=== PATIENT | male | born 1965 | race Caucasian/White ===

== ENCOUNTER 2020-11-05 10:33 | Outpatient (REF) | payer OTHER, SELFPAY ==
[2020-11-05 12:52] LABS: MANUAL DIFF FLAG NO
[2020-11-05 13:12] LABS: Basophils Percent Auto 0.6 % (0-2); Eosinophils Absolute Auto 0.2 X10*3/uL (0.0-0.4); Eosinophils Percent Auto 2.6 % (0-4); Hematocrit 46.8 % (42-52); Hemoglobin 16.3 g/dl (14.0-18.0); Imm Gran Abs Auto 0.04 X10*3/uL (0.00-0.03); Imm Gran Pct Auto 0.6 % (0.0-0.4); Lymphocytes Absolute Auto 1.6 X10*3/uL (1.2-4.9); Lymphocytes Percent Auto 24.3 % (20-40); Mean Corpuscular HGB Conc 34.8 g/dl (31.0-36.0); Mean Corpuscular Hemoglobin 29.2 pg (27.0-33.0); Mean Corpuscular Volume 83.9 fL (80-98); Mean Platelet Volume 10.4 fL (9.4-12.4); Monocytes Absolute Auto 0.6 X10*3/uL (0.1-1.2); Monocytes Percent Auto 8.7 % (2-11); Neutrophils Absolute Auto 4.1 X10*3/uL (2.0-8.3); Neutrophils Percent Auto 63.2 % (45-73); Platelet Count 217 X10*3/uL (160-400); Red Blood Count 5.58 X10*6/uL (4.60-5.80); Red Cell Distribution Width 13.2 % (11.0-16.0); White Blood Count 6.5 X10*3/uL (4.8-10.8)
[2020-11-05 14:11] LABS: Estimated Average Glucose 217 mg/dL; Hemoglobin A1c % 9.2 %
[2020-11-05 14:41] LABS: Prostate Specific Antigen 2.33 ng/mL (<0.05-4.0)
[2020-11-05 14:44] LABS: Alanine Aminotransferase 43 U/L (0-40); Albumin Level 4.5 g/dL (3.5-5.0); Alkaline Phosphatase 76 U/L (39-117); Anion Gap 15 (12-20); Aspartate Amino Transferase 21 U/L (5-37); Bilirubin Total 2.1 mg/dL (0.0-1.0); Blood Urea Nitrogen 14 mg/dL (9-16); Calcium 9.3 mg/dL (8.4-10.2); Carbon Dioxide 27 mmol/L (22-29); Chloride 105 mmol/L (96-108); Cholesterol 158 mg/dL; Estimated Glomerular Filt Rate > 60; Glucose Fasting 229 mg/dL (60-99); HDL Cholesterol 32 mg/dL; LDL Cholesterol Calculated 98 mg/dl; Sodium 143 mmol/L (135-145); Total Protein 7.3 g/dL (6.5-8.0); Triglycerides 140 mg/dL
== END 2020-11-05 10:34 | disposition home or self-care (01) ==
LOC: HO.MANLDS 10:33
PROVIDERS: PCP Internal Medicine; Visit Provider Physician Assistant
DX: E11.9 Type 2 diabetes mellitus without complications (principal); E78.00 Pure hypercholesterolemia, unspecified; N40.0 Benign prostatic hyperplasia without lower urinary tract symptoms; Z12.5 Encounter for screening for malignant neoplasm of prostate
CPT/HCPCS: 36415; 80053; 80061; 83036; 84153; 85025

== ENCOUNTER 2021-02-04 10:17 | Outpatient (REF) | payer OTHER, SELFPAY ==
[2021-02-04 12:59] LABS: Estimated Average Glucose 206 mg/dL; Hemoglobin A1c % 8.8 %
[2021-02-04 14:10] LABS: Cholesterol 160 mg/dL; HDL Cholesterol 30 mg/dL; LDL Cholesterol Calculated 103 mg/dl; Triglycerides 136 mg/dL
[2021-02-04 14:12] LABS: Creatinine Urine 101.51 mg/dL; Microalbum/Creatinine Ratio Ur 15.7 ug/mg cr
== END 2021-02-04 10:18 | disposition home or self-care (01) ==
LOC: HO.MANLR 10:17
PROVIDERS: PCP Internal Medicine; Visit Provider Physician Assistant
DX: E11.9 Type 2 diabetes mellitus without complications (principal)
CPT/HCPCS: 36415; 80061; 82043; 83036

== ENCOUNTER 2021-05-12 10:47 | Outpatient (REF) | payer OTHER, SELFPAY ==
[2021-05-12 14:01] LABS: Estimated Average Glucose 214 mg/dL; Hemoglobin A1c % 9.1 %
== END 2021-05-12 10:48 | disposition home or self-care (01) ==
LOC: HO.MANLDS 10:47
PROVIDERS: PCP Physician Assistant; Visit Provider Physician Assistant
DX: E11.9 Type 2 diabetes mellitus without complications (principal)
CPT/HCPCS: 36415; 83036

== ENCOUNTER 2021-10-29 10:21 | Outpatient (REF) | payer OTHER, SELFPAY ==
[2021-10-29 12:51] LABS: Cholesterol 156 mg/dL; HDL Cholesterol 30 mg/dL; LDL Cholesterol Calculated 89 mg/dl; Triglycerides 187 mg/dL
== END 2021-10-29 10:22 | disposition home or self-care (01) ==
LOC: HO.MANLDS 10:21
PROVIDERS: PCP Physician Assistant; Visit Provider Physician Assistant
DX: E78.2 Mixed hyperlipidemia (principal)
CPT/HCPCS: 36415; 80061

== ENCOUNTER 2022-05-19 11:08 | Outpatient (REF) | payer OTHER, SELFPAY ==
[2022-05-19 13:48] LABS: MANUAL DIFF FLAG NO
[2022-05-19 14:04] LABS: Basophils Percent Auto 0.4 % (0-2); Eosinophils Absolute Auto 0.2 X10*3/uL (0.0-0.4); Eosinophils Percent Auto 2.5 % (0-4); Hematocrit 47.2 % (42.0-52.0); Hemoglobin 16.3 g/dl (14.0-18.0); Imm Gran Abs Auto 0.02 X10*3/uL (0.00-0.03); Imm Gran Pct Auto 0.3 % (0.0-0.4); Lymphocytes Absolute Auto 1.3 X10*3/uL (1.2-4.9); Lymphocytes Percent Auto 18.9 % (20-40); Mean Corpuscular HGB Conc 34.5 g/dl (31.0-36.0); Mean Corpuscular Hemoglobin 28.8 pg (27.0-33.0); Mean Corpuscular Volume 83.4 fL (80.0-98.0); Mean Platelet Volume 10.4 fL (9.4-12.4); Monocytes Absolute Auto 0.6 X10*3/uL (0.1-1.2); Monocytes Percent Auto 8.9 % (2-11); Neutrophils Absolute Auto 4.7 x10*3/uL (2.0-8.3); Platelet Count 226 X10*3/uL (160-400); Red Blood Count 5.66 X10*6/uL (4.60-5.80); Red Cell Distribution Width 13.2 % (11.0-16.0); White Blood Count 6.8 X10*3/uL (4.8-10.8)
[2022-05-19 14:19] LABS: Estimated Average Glucose 229 mg/dL; Hemoglobin A1c % 9.6 %
[2022-05-19 14:29] LABS: Alanine Aminotransferase 28 U/L (0-40); Albumin Level 4.5 g/dL (3.5-5.0); Alkaline Phosphatase 79 U/L (39-117); Anion Gap 16 (12-20); Aspartate Amino Transferase 18 U/L (5-37); Bilirubin Total 2.5 mg/dL (0.0-1.0); Blood Urea Nitrogen 11 mg/dL (9-16); Carbon Dioxide 28 mmol/L (22-29); Chloride 100 mmol/L (96-108); Cholesterol 145 mg/dL; Estimated Glomerular Filt Rate > 60; Glucose Random 218 mg/dL (60-115); HDL Cholesterol 34 mg/dL; LDL Cholesterol Calculated 86 mg/dl; Potassium 4.3 mmol/L (3.3-5.1); Sodium 140 mmol/L (135-145); Total Protein 7.2 g/dL (6.5-8.0); Triglycerides 128 mg/dL
[2022-05-19 14:49] LABS: Prostate Specific Antigen 1.76 ng/mL (<0.05-4.0)
== END 2022-05-19 11:09 | disposition home or self-care (01) ==
LOC: HO.MANLDS 11:08
PROVIDERS: Visit Provider Physician Assistant
DX: E78.2 Mixed hyperlipidemia (principal); Z12.5 Encounter for screening for malignant neoplasm of prostate
CPT/HCPCS: 36415; 80053; 80061; 83036; 84153; 85025

== ENCOUNTER 2022-09-09 11:32 | Outpatient (REF) | payer OTHER, SELFPAY ==
[2022-09-09 14:50] LABS: Alanine Aminotransferase 35 U/L (0-40); Albumin Level 4.3 g/dL (3.5-5.0); Alkaline Phosphatase 81 U/L (39-117); Anion Gap 11 (12-20); Aspartate Amino Transferase 18 U/L (5-37); Bilirubin Total 1.8 mg/dL (0.0-1.0); Blood Urea Nitrogen 14 mg/dL (9-16); Calcium 9.2 mg/dL (8.4-10.2); Carbon Dioxide 28 mmol/L (22-29); Chloride 104 mmol/L (96-108); Cholesterol 166 mg/dL; Estimated Glomerular Filt Rate > 60; Glucose Random 237 mg/dL (60-115); HDL Cholesterol 27 mg/dL; LDL Cholesterol Calculated 114 mg/dl; Potassium 3.9 mmol/L (3.3-5.1); Sodium 139 mmol/L (135-145); Total Protein 6.9 g/dL (6.5-8.0); Triglycerides 126 mg/dL
== END 2022-09-09 11:33 | disposition home or self-care (01) ==
LOC: HO.MANLDS 11:32
PROVIDERS: Visit Provider Physician Assistant
DX: E78.2 Mixed hyperlipidemia (principal)
CPT/HCPCS: 36415; 80053; 80061

== ENCOUNTER 2023-02-10 | Outpatient (REF) | payer OTHER, SELFPAY ==
[2023-02-10 13:56] LABS: MANUAL DIFF FLAG NO
[2023-02-10 14:01] LABS: Appearance Urine Clear; Color Urine Yellow; Glucose Urine UA >=1000 mg/dL (Negative); Leukocyte Esterase Urine Negative (Negative); Nitrite Urine Negative (Negative); PH 6.5 (5.0-9.0); Specific Gravity - Urine 1.025 (1.005-1.025); UMIC TRIGGER UACC YES; Urine Blood Negative (Negative); Urine Ketones Trace mg/dL (Negative); Urine Protein Negative (Neg-Trace)
[2023-02-10 14:07] LABS: Basophils Percent Auto 0.6 % (0-2); Eosinophils Absolute Auto 0.2 X10*3/uL (0.0-0.4); Eosinophils Percent Auto 2.6 % (0-4); Hematocrit 45.7 % (42.0-52.0); Hemoglobin 16.1 g/dl (14.0-18.0); Imm Gran Abs Auto 0.02 X10*3/uL (0.00-0.03); Imm Gran Pct Auto 0.3 % (0.0-0.4); Lymphocytes Absolute Auto 1.5 X10*3/uL (1.2-4.9); Lymphocytes Percent Auto 23.7 % (20-40); Mean Corpuscular HGB Conc 35.2 g/dl (31.0-36.0); Mean Corpuscular Hemoglobin 29.8 pg (27.0-33.0); Mean Corpuscular Volume 84.5 fL (80.0-98.0); Mean Platelet Volume 10.3 fL (9.4-12.4); Monocytes Absolute Auto 0.6 X10*3/uL (0.1-1.2); Monocytes Percent Auto 9.9 % (2-11); Neutrophils Absolute Auto 4.1 x10*3/uL (2.0-8.3); Neutrophils Percent Auto 62.9 % (45-73); Platelet Count 234 X10*3/uL (160-400); Red Blood Count 5.41 X10*6/uL (4.60-5.80); Red Cell Distribution Width 13.2 % (11.0-16.0); White Blood Count 6.5 X10*3/uL (4.8-10.8)
[2023-02-10 14:09] LABS: Bacteria Urine None Seen (None Seen); Hyaline Casts Urine 0-2 /LPF (0-2); RBC Urine 0-2 /HPF (0-2); Squamous Epithelial Cell Urine 0-2 /HPF (0-2); WBC Urine 0-5 /HPF (0-5)
[2023-02-10 14:32] LABS: Iron 96 mcg/dL (45-160); Percent Iron Saturation 29 % (15-50); Total Iron Binding Capacity 330 mcg/dL (228-428); Unsaturated Iron Binding 234 ug/dL
[2023-02-10 14:40] LABS: Ferritin 322 ng/mL (20-250); Prostate Specific Antigen 2.04 ng/mL (<0.05-4.0)
== END 2023-02-10 00:01 | disposition home or self-care (01) ==
LOC: HO.MANLDS
PROVIDERS: Visit Provider Physician Assistant
DX: Z12.5 Encounter for screening for malignant neoplasm of prostate (principal); N40.0 Benign prostatic hyperplasia without lower urinary tract symptoms; R31.0 Gross hematuria
CPT/HCPCS: 36415; 81001; 81003; 82728; 83540; 84153; 85025

== ENCOUNTER 2023-05-12 11:57 | Outpatient (REF) | payer OTHER, SELFPAY ==
[2023-05-13 05:07] LABS: Syphilis Screen Nonreactive (Nonreactive)
[2023-05-13 05:16] LABS: HBS Num1 0.11 mIU/mL (0-7.99); HBc Num1 0.11 S/CO (0.00-0.79); HIV AB/AG Nonreactive (Nonreactive); HIV Num 1 0.08 S/CO (0.00-0.99); Hepatitis A Antibody IgM 0.17 Index (0-0.79); Hepatitis B Core Antibody Nonreactive (Nonreactive); Hepatitis B Surface Antigen Negative (Negative); ~HepC Num1 0.05 S/CO (0.00-0.79); ~Hepatitis A Antibody IgM Nonreactive (Nonreactive); ~Hepatitis B Surface Antibody NONREACTIVE (Nonreactive); ~Hepatitis C Antibody Nonreactive (Nonreactive)
== END 2023-05-12 11:58 | disposition home or self-care (01) ==
LOC: HO.MANLDS 11:57
PROVIDERS: Visit Provider Physician Assistant
DX: Z11.4 Encounter for screening for human immunodeficiency virus [HIV] (principal); R36.1 Hematospermia
CPT/HCPCS: 36415; 86704; 86706; 86709; 86780; 86803; 87340; 87389

== ENCOUNTER 2023-05-12 14:00 | Outpatient (REF) | payer OTHER, SELFPAY ==
[2023-05-13 05:00] LABS: CT PCR NOT DETECTED (Not Detect.); NG PCR NOT DETECTED (Not Detect.)
== END 2023-05-12 14:01 | disposition home or self-care (01) ==
LOC: HO.MANLNP 14:00
PROVIDERS: Visit Provider Physician Assistant
DX: R36.1 Hematospermia (principal); Z20.2 Contact with and (suspected) exposure to infections with a predominantly sexual mode of transmission
CPT/HCPCS: 0353U

== ENCOUNTER 2024-10-27 10:43 | Outpatient (REF) | payer OTHER, SELFPAY ==
--- OUTSIDE RECORDS SUMMARY | 2024-10-27 12:14 | XMS_ITS | Encounter Summary ---
Author Organization [facility] Address [phone] [place] [address] Care Team Providers Care Surgeon Assistant Name Role Phone NeishaGigi hughes Primary Care Provider [phone] Encounter Details Date Type Department Care Team (Late st Contact Info) Description 10/05/2024 Orders Only [facility] [address] [place] [address] [facility] [address] [place] [address] Tuan Cortez DO [address] [place] [address] Social History Tobacco Use Types Packs/Day Years Used Date Smoking Tobacco: Never Passive Smoke Exposure: Never Smokeless Tobacco: Never Alcohol Use Standard Drinks/Week Comments Never 0 (1 standard drink = 0.6 oz pur e alcohol) Education Answer Date Recorded Are you interested in more education? Not on marce e 12/25/2022 Are you concerned about learning? Not on file 12/25/2022 No 12/25/2022 No 12/25/2022 Digital Access Answer Date Recorded No 01/25/2023 No 01/25/2023 Reliable internet access at home? Not on file 01/25/2023 Device with a working camera? Not on file Intimate Partner Violence Answer Date R ecorded Are you denied basic needs s uch as food, clothing, or medical care? No 06/20/2024 In the past 12 months have y ou been in a relationship with a person who hurts, threatens, or tries to control you? No 06/20/2024 Are you denied basic needs s uch as food, clothing, or medical care? No 06/20/2024 In the past 12 months have y ou been in a relationship with a person who hurts, threatens, or tries to control you? No 06/20/2024 Sex and Gender Information Value Date Recorded Sex Assigned at Male 12/19/2021 9:31 AM EDT Gender Identity Male 12/19/2021 9:31 AM EDT Sexual Orientation Don't know 06/20/2024 6: 18 PM EDT documented as of this encounter Plan of Treatment Upcoming Encounters Date Type Department Care Team (Late st Contact Info) Description 12/15/2024 11:00 AM EDT Office Visit [facility] [address] [place] [address] [place] [address] Stacy Hendrickson MD 22 [facility], 1st [place] [address] 05/29/2025 12:00 PM EDT Office Visit [facility] [address] [place] [address] [facility] [address] [place] [address] Tuan Cortez DO [address] [place] [phone] documented as of this encounter Procedures Procedure Name Priority Date/Time Associated Diagnosis Comments OUTSIDE MONITOR Routine 10/05/2024 2:31 PM EST documented in this encounter Results * Outside Monitor Report Only (10/05/2024 2:31 PM EST) Tuan Cortez DO [facility] ORDERABLES documented in this encounter Visit Diagnoses Not on filedocumented in this encounter Care Teams Surgeon Assistant Relationship Specialty Start Date End Date Gigi Mcwilliams DO PCP - General Internal Medicine 09/28/14 documented as of this encounter Additional Source Comments The information contained in this document represents components of the legal health record. It is not the complete legal health record.[facility]
--- OUTSIDE RECORDS SUMMARY | 2024-10-27 12:14 | XMS_ITS | Encounter Summary ---
Author Organization [facility] Address [phone] [place] [address] Care Team Providers Care Airport Utility Worker Name Role Phone Gigi Mcwilliams DO Primary Care Provider [phone] Encounter Details Date Type Department Care Team (Late st Contact Info) Description 08/17/2017 Ancillary Orders Virtual Department [address] [place] [address] Monse Don PA-C [address] [place] [address] Chest pain on exertion Social History Tobacco Use Types Packs/Day Years Used Date Smoking Tobacco: Never Alcohol Use Standard Drinks/Week Comments Not Asked 0 (1 standard drink = 0.6 oz pur e alcohol) Sex and Gender Information Value Date Recorded Sex Assigned at Male 12/19/2021 9:31 AM EDT Gender Identity Male 12/19/2021 9:31 AM EDT Sexual Orientation Don't know 06/20/2024 6: 18 PM EDT documented as of this encounter Plan of Treatment Upcoming Encounters Date Type Department Care Team (Late st Contact Info) Description 12/15/2024 11:00 AM EDT Office Visit [facility] [address] [place] [address] Stacy Hendrickson MD 22 [facility], 1st [place] [address] 05/29/2025 12:00 PM EDT Office Visit [facility] [address] [place] [address] Tuan Cortez DO [address] [place] [address] documented as of this encounter Visit Diagnoses Diagnosis Chest pain on exertion Unspecified chest pain documented in this encounter Additional Health Concerns Infection Onset Date Last Indicated Resolved Time MRSA Comment:Import to add expiration date of 11/15/2021 per Infection Control as part of historical infection status reconciliation 04/02/2008 04/02/2008 11/16/19 1:35 AM EDT CoV-Risk Comment:Per Ambulatory Triage Form 04/23/2022 04/23/202204/24 7:52 AM EDT COVID-19 04/23/2022 04/23/2022 05/14/2022 1:21 AM EDT documented as of this encounter Care Teams Airport Utility Worker Relationship Specialty Start Date End Date Gigi Mcwilliams DO PCP - General Internal Medicine 09/28/14 documented as of this encounter Additional Source Comments The information contained in this document represents components of the legal health record. It is not the complete legal health record.[facility]
--- OUTSIDE RECORDS SUMMARY | 2024-10-27 12:14 | XMS_ITS | Encounter Summary ---
Author Organization [facility] Address [phone] [facility] [place] [address] Care Team Providers Care Still Operator Helper Name Role Phone Gigi Mcwilliasm Primary Care Provider [phone] Encounter Details Date Type Department Care Team (Late st Contact Info) Description 04/05/2023 Procedure Pass [address] [address] Social History Tobacco Use Types Packs/Day Years Used Date Smoking Tobacco: Never Smokeless Tobacco: Never Alcohol Use Standard [...] with a working camera? Not on file Sex and Gender Information Value Date Recorded Sex Assigned at Male 12/19/2021 9:31 AM EDT Gender Identity Male 12/19/2021 9:31 AM EDT Sexual Orientation Don't know 06/20/2024 6 :18 PM EDT documented as of this encounter Plan of Treatment Upcoming Encounters Date Type Department Care Team (Late st Contact Info) Description 12/15/2024 11:00 AM EDT Office Visit [facility] [address] [place] [address] Stacy Hendrickson MD 22 [facility], 1st [place] [address] 05/29/2025 12:00 PM EDT Office Visit [facility] [address] [address] Tuan Cortez DO [address] [place] [address] documented as of this encounter Visit Diagnoses Not on filedocumented in this encounter Care Teams Still Operator Helper Relationship Specialty Start Date End Date Gigi Mcwilliams DO PCP - General Internal Medicine 09/28/14 documented as of this encounter Additional Source Comments The information contained in this document represents components of the legal health record. It is not the complete legal health record.[facility]
--- OUTSIDE RECORDS SUMMARY | 2024-10-27 12:14 | XMS_ITS | Encounter Summary ---
Author Organization [facility] Address [phone] [place] [address] Care Team Providers Care Belt Maker Helper Name Role Phone Gigi Mcwilliams DO Primary Care Provider [phone] Encounter Details Date Type Department Care Team (Late st Contact Info) Description 08/05/2017 Ancillary Orders Non-Invasive Cardiology [address] [place] [address] Monse Don PA-C [address] [place] [address] Chest pain on exertion Social History Tobacco [...] Description 12/15/2024 11:00 AM EDT Office Visit [facility] [address] [place] [address] Stacy Hendrickson MD 22 [facility], 1st [place] [address] 05/29/2025 12:00 PM EDT Office Visit [facility] [address] [place] [address] Tuan Cortez DO [address] [place] [id number] [email or web address] documented as of this encounter Results * Stress Test Exercise (08/05/2017 11:29 AM EST) Max BP Systolic 210 mmHg [facility] Max BP Diastolic 90 mmHg [facility] Max HR 139 BPM [facility] Resting HR 73 BPM [facility] Resting BP Systolic 144 mmHg [facility] Resting BP Diastolic 70 mmHg [facility] Peak METS 10.1 METS [facility] Peak HR 139 BPM [facility] Anatomical Region Laterality Modality Heart Other 08/05/2017 10:4 5 AM EST 08/05/2017 11:28 AM EST Narrative 08/05/2017 1:06 PM EST Stress Test Result The heart rate changed from 73 bpm at rest to 139 bpm at peak stress. The blood pressure changed from 144/70 mmHg at rest. The patient's functional capacity is 10.1 METS. Exercise Stress Test Report: Reason for termination: Fatigue Summary: Resting ECG: SR HR 74 Functional capacity: Fair Heart rate response to exercise:Appropriate Blood pressure response to exercise:Normal resting-appropriate Chest pain: Pt with baseline chest pressure 1/10, increased in intensity to 4/10 at peak exercise that resolved with rest Arrhythmias: Isolated PVC ST-T changes:None Overall impression: Abnormal exercise stress test Conclusion: Coleman Puckett exercised for 7:26 Minutes on a standard Marcos protocol achieving 139 MPHR and 10.40 METS. Test terminated due to fatigue Summary: 1. EKG: No EKG evidence of ischemia per criteria 2. Symptoms: Pt with baseline chest pressure 1/10, increased in intensity to 4/10 at peak exercise that resolved with rest 3. Exercise physiology: Normal heart rate and BP response to exercise. Fair functional capacity for age noted 4. Arrhythmia: Isolated PVC Conclusion: Abnormal ETT. No ischemic EKG changes. However, Pt with baseline chest pressure 1/10, increased in intensity to 4/10 at peak exercise that resolved with rest. Recommend nuclear stress test which will be scheduled through Dr. Mcwilliams's office. Vital signs at baseline at time of discharge from the lab. EKG reviewed with Dr. Rios. Shyanne Meyer NP November Florencia RENY CV STRESS ORDERABLES documented in this encounter Visit Diagnoses Diagnosis Chest pain on exertion Unspecified chest pain Chest pain on exertion Unspecified chest pain [...] documented as of this encounter Care Teams Belt Maker Helper Relationship Specialty Start Date End Date Gigi Mcwilliams DO [email or web address] PCP - General Internal Medicine 09/28/14 documented as of this encounter Additional Source Comments The information contained in this document represents components of the legal health record. It is not the complete legal health record.[facility]
--- OUTSIDE RECORDS SUMMARY | 2024-10-27 12:14 | XMS_ITS | Encounter Summary ---
Author Organization [facility] Address [phone] [facility] [place] [address] Care Team Providers Care Poly Packer And Heat Sealer Name Role Phone Gigi Mcwilliams DO Primary Care Provider [phone] Encounter Details Date Type Department Care Team (Late Contact Info) Description 08/05/2017 Ancillary Orders [facility] External Provider Virtual Department [address] [place] [address] Monse Don PA-C [address] [place] [address] Social History Tobacco Use Types Packs/Day Years [...] Encounters Date Type Department Care Team (Late Contact Info) Description 12/15/2024 11:00 AM EDT Office Visit [facility] [address] [place] [address] St[place] Hendrickson MD 22 [facility], 1st [place] [address] 05/29/2025 12:00 PM EDT Office Visit [facility] [address] [place] [address] Tuan Cortez DO [address] [place] [address] documented as of this encounter Visit Diagnoses Not on filedocumented in this encounter Additional Health Concerns Infection Onset Date Last Indicated Resolved Time MRSA Comment:Import to add expiration date of 11/15/2021 per Infection Control as part of historical infection status reconciliation 04/02/2008 04/02/2008 11/16/19 1:35 AM EDT CoV-Risk Comment:Per Ambulatory Triage Form 04/23/2022 04/23/202204/24 7:52 AM EDT COVID-19 04/23/2022 04/23/2022 05/14/2022 1:21 AM EDT documented as of this encounter Care Teams Poly Packer And Heat Sealer Relationship Specialty Start Date End Date Gigi Mcwilliams DO [email or web address] PCP - General Internal Medicine 09/28/14 documented as of this encounter Additional Source Comments The information contained in this document represents components of the legal health record. It is not the complete legal health record.[facility]
--- OUTSIDE RECORDS SUMMARY | 2024-10-27 12:14 | XMS_ITS | Encounter Summary ---
Author Organization [facility] Address [phone] [place] [address] Care Team Providers Care Business Support Name Role Phone Gigi Mcwilliams DO Primary Care Provider [phone] Encounter Details Date Type Department Care Team (Latest Contact Info) Description 10/10/2024 1:30 PM EST Office Visit [facility] [address] [place] [address] [facility] [address] [place] [address] Jennifer Crowder, PAINT MIXER HAND [address] [place] [address] [email or web address] Hypercholesterolemia (Primary Dx); Primary hypertension; Paroxysmal atrial fibrillation Social History Tobacco Use Types Packs/Day Years Used Date Smoking Tobacco: Never Passive Smoke Exposure: Never Smokeless Tobacco: Never Tobacco Cessation:Counseling Given: Not Answered Alcohol Use Standard Drinks/Week Comments Never 0 [...] PM EDT documented as of this encounter Last Filed Vital Signs Vital Sign Reading Time Taken Comments Blood Pressure 140/70 10/10/2024 1:19 PM EST Pulse 60 10/10/2024 1:19 PM EST Temperature - - Respiratory Rate - - Oxygen Saturation 98% 10/10/2024 1:19 PM EST Inhaled Oxygen Concentration - - Weight 161.9 kg (357 lb) 10/10/2024 1:19 PM EST Height 195.6 cm (6' 5 ) 10/10/2024 1:19 PM EST Body Mass Index 42.33 10/10/2024 1:19 PM EST documented in this encounter Progress Notes * Jennifer Crowder CNP - 10/10/2024 1:30 PM EST Identification: Coleman Puckett is a 59 y.o. male; 1965 [id number] Coleman Puckett is a 59 y.o. male with medical history significant for: Hypertension, diabetes, sleep apnea, atrial fibrillation. Atrial fibrillation was newly diagnosed 06/20/2024 after presenting presented to the ED with chest discomfort and lightheadedness. Found to be in atrial fibrillation at that time and was started on anticoagulation with Eliquis. Was seen in the office with Dr. Cortez for hospital follow-up on 08/07/2024. At that visit metoprolol is increased and patient was ordered for 1 week MCOT monitor and echocardiogram. Plan to refer for ablation if patient were to have symptomatic recurrences of arrhythmia. Reason for visit: No chief complaint on file. I met with Coleman today. Overall he is doing well. Since his event monitor was completed he thinks he only had a couple additional recurrence of atrial fibrillation these last only a 5-10 seconds at a time and are described as a mild sensation of chest pressure. Other than these episodes no concerning symptoms. Denies any chest pain, pressure, shortness of breath, orthopnea, PND, lightheaddedness, dizziness, palpitations or lower extremity swelling. He does check his blood pressure at home typically running high 130s/70s although he only checks his blood pressure and is feeling unwell for what ever reason. He is using CPAP. He does not drink alcohol. He started to decrease his caffeine intake. Relevant testin-day event monitor 10/05/2024 Heart rate ranged from 58 bpm to 118 bpm with an average of 72 bpm Bradycardia and tachycardia burden???s of less than 0.1% Ventricular ectopic burden of 0.1% Supraventricular ectopic burden of less than 0.1% 1 episode of A-fib noted up to 11 seconds duration 2 runs of SVT noted up to 14 beats No episodes of VT, pauses, AV block 7 symptomatic and 2 auto triggered events recorded, upon further review, consistent with sinus rhythm with few PVCs, 11-second episode of atrial fibrillation Recommendationa???.correlate clinically Adult Echo TTE [YSG126] 10/05/2024 (Final) Interpretation Summary Images from the original result were not included. 1. This patient was imaged during normal sinus rhythm. The estimated ejection fraction is 60 to 65%. Diastolic function was normal left ventricular thickness is normal and there are no regional wall motion abnormalities. 2. Normal RV size and function. 3. Trileaflet aortic valve with no evidence of aortic stenosis, the ascending aortic root is 38 mm. 4. Trace mitral and trace tricuspid sufficiency, the PA pressure was not able to be calculated. 5. Normal pericardium and when compared to the prior echo, no significant change. Signed by: Tuan Cortez DO on 10/06/2024 9:07 AM Nuclear stress test 06/2020 IMPRESSION: No specific change identified since prior study of July 2017. No clear scintigraphic findings for infarction or significant ischemia. Ejection fraction calculated at 63%. Examination BP (!) 140/70 Pulse 60 Ht 195.6 cm (6' 5 ) Wt (!) 161.9 kg (357 lb) SpO2 98% BMI 42.33 kg/m?? GENERAL APPEARANCE: NAD. Looks well. HEENT: NC/AT, conjunctiva pink and sclera clear. CAROTID UPSTROKE: normal. JVD: normal. HEART SOUNDS: normal S1, S2; no murmur gallop or rub. LUNGS: clear to auscultation. ABDOMEN: no hepatomegaly; no hepato-jugular reflux. EXTREMITIES: no leg edema. PERIPHERAL PULSES: intact. NEUROLOGIC: grossly intact. Plan: Hypertension Blood pressure elevated today 140/70 Seems to run elevated at home as well when he checks although he only does check when is feeling unwell. Current medications include losartan 100 mg daily, hydrochlorothiazide 25 mg daily, amlodipine 10 mg daily and metoprolol succinate 100 mg daily He is going to keep a blood pressure log at home for a week. Blood pressure is averaging greater than 130/80 we will need to adjust his medications. We did discuss the importance of weight loss, this would significantly benefit his blood pressure. He is currently taking Mounjaro, he just requested that his PCP increase the dose of this. Recommended starting exercise again, he is interested in getting back into the pool and swimming again. Paroxysmal atrial fibrillation Minimal symptomatic recurrences of this not really bothersome Discussed consideration for ablation, not interested at this time. Compliant with CPAP. Does not use alcohol. Decreasing caffeine intake Continue monitoring symptoms, if frequency increases or if symptoms worsen will have further discussion regarding ablation. Continue Eliquis 5 mg twice daily Continue metoprolol succinate 100 mg daily Hypercholesterolemia He should probably be on high intensity statin therapy. He does have diabetes which he takes insulin for. I do not see that his LDL has ever been below 70 which should be his target, has not been checked since 2021 Recheck lipid profile If LDL is greater than 70 would switch him to rosuvastatin Follow-up in 6 months Past Medical History: Diagnosis Date Angina pectoris Arthritis back, neck Diabetes mellitus Hyperlipidemia Hypertensive disorder Seasonal allergies Sleep apnea Past Surgical History: Procedure Laterality Date HERNIA REPAIR umbilical HIP SURGERY Left 1988 12 screws implant LAPAROSCOPIC GASTRIC BANDING TOTAL HIP ARTHROPLASTY Left 2014 Social History Tobacco Use Smoking status: Never Passive exposure: Never Smokeless tobacco: Never Vaping Use Vaping status: never used Substance Use Topics Alcohol use: Never Alcohol/week: 0.0 standard drinks of alcohol Drug use: Never No family history on file. Current Outpatient Medications Medication Sig Dispense Refill Last Dispense alfuzosin (UROXATRAL) 10 mg 24 hr tablet Take 10 mg by mouth daily. Unknown (patient-reported) amLODIPine (NORVASC) 10 MG tablet Take 10 mg by mouth daily. Unknown (patient-reported) apixaban (ELIQUIS) 5 mg tablet Take 1 tablet (5 mg total) by mouth 2 (two) times a day. 180 tablet 0 Unknown (outside pharmacy) APPLE CIDER VINEGAR ORAL Take by mouth. Unknown (patient-reported) BD TERESA 2ND GEN PEN NEEDLE 32 gauge x 5/32 Ndle INJECT 1 EACH UNDER THE SKIN DAILY. ALSO USE FOR ONCE WEEKLY OZEMPIC INJECTION. E11.9 100 each 3 Unknown (outside pharmacy) [employer] ANNETTE 3 PLUS SENSOR Margot Apply as directed every 15 days 6 each 3 Unknown (outside pharmacy) LANTUS SOLOSTAR U-100 INSULIN 100 unit/mL (3 mL) InPn injection pen Inject 60 Units under the skin daily. 30 mL 11 Unknown (outside pharmacy) losartan-hydroCHLOROthiazide (HYZAAR) 100-25 mg per tablet losartan 100 mg- hydrochlorothiazide 25 mg tablet Unknown (patient-reported) lovastatin (MEVACOR) 40 MG tablet lovastatin 40 mg tablet Unknown (patient-reported) metFORMIN (GLUCOPHAGE-XR) 500 MG 24 hr tablet Take 1,000 mg by mouth daily with breakfast. Unknown (patient-reported) metoprolol succinate (TOPROL-XL) 50 MG 24 hr tablet Take 2 tablets (100 mg total) by mouth daily. 180 tablet 3 Unknown (outside pharmacy) MOUNJARO 7.5 mg/0.5 mL PnIj subcutaneous pen Inject 0.5 mL (7.5 mg total) under the skin every 7 days. 2 mL 1 Unknown (outside pharmacy) omega-3 fatty acids-fish oil 340-1,000 mg Cap Take 1 capsule by mouth daily. Unknown (patient-reported) [id number]-[id number]-hor [phone] mg Tab Take by mouth. Unknown (patient-reported) No current facility-administered medications for this visit. Jennifer Crowder NP * Adrian Delgado MD - 10/10/2024 1:30 PM EST I have reviewed the notes, assessments, and/or procedures performed by the advanced practitioner above. I concur with their documentation of Coleman Puckett . documented in this encounter Miscellaneous Notes * Assessment & Plan Note - Jennifer Crowder CNP - 10/10/2024 2:14 PM EST Associated Problem(s): Hypercholesterolemia He should probably be on high intensity statin therapy. He does have diabetes which he takes insulin for. I do not see that his LDL has ever been below 70 which should be his target, has not been checked since 2021 Recheck lipid profile If LDL is greater than 70 would switch him to rosuvastatin * Assessment & Plan Note - Jennifer Crowder CNP - 10/10/2024 2:13 PM EST Associated Problem(s): Paroxysmal atrial fibrillation Minimal symptomatic recurrences of this not really bothersome Discussed consideration for ablation, not interested at this time. Compliant with CPAP. Does not use alcohol. Decreasing caffeine intake Continue monitoring symptoms, if frequency increases or if symptoms worsen will have further discussion regarding ablation. Continue Eliquis 5 mg twice daily Continue metoprolol succinate 100 mg daily * Assessment & Plan Note - Jennifer Crowder CNP - 10/10/2024 2:13 PM EST Associated Problem(s): Hypertension Blood pressure elevated today 140/70 Seems to run elevated at home as well when he checks although he only does check when is feeling unwell. Current medications include losartan 100 mg daily, hydrochlorothiazide 25 mg daily, amlodipine 10 mg daily and metoprolol succinate 100 mg daily He is going to keep a blood pressure log at home for a week. Blood pressure is averaging greater than 130/80 we will need to adjust his medications. We did discuss the importance of weight loss, this would significantly benefit his blood pressure. He is currently taking Mounjaro, he just requested that his PCP increase the dose of this. Recommended starting exercise again, he is interested in getting back into the pool and swimming again. documented in this encounter Plan of Treatment Upcoming Encounters Date Type Department Care Team (Late st Contact Info) Description 12/15/2024 11:00 AM EDT Office Visit [facility] [address] [place] [address] Stacy Hendrickson MD 22 [facility], 1st [place] [address] 05/29/2025 12:00 PM EDT Office Visit [facility] [address] [address] Tuan Cortez DO [address] [place] [id number] Scheduled Orders Name Type Priority Associated Diagnoses Orde r Schedule Lipid panel Lab Routine Hypercholesterolemia Expected: 10/10/2024, Expires: 10/10/2025 LFTs (hepatic panel) Lab Routine Hypercholesterolemia Expected: 10/10/2024, Expires: 10/10/2025 documented as of this encounter Visit Diagnoses Diagnosis Hypercholesterolemia- Primary Pure hypercholesterolemia Primary hypertension Unspecified essential hypertension Paroxysmal atrial fibrillation Atrial fibrillation documented in this encounter Care Teams Business Support Relationship Specialty Start Date End Date Gigi Mcwilliams DO PCP - General Internal Medicine 09/28/14 documented as of this encounter Additional Source Comments The information contained in this document represents components of the legal health record. It is not the complete legal health record.[facility]
--- OUTSIDE RECORDS SUMMARY | 2024-10-27 12:14 | XMS_ITS | Clinical Summary ---
Author Organization [facility] [employer] Address [address] [place] [address] Care Team Providers Care Manager Of International Name Role Phone Gigi Mcwilliams DO Primary Care Provider Unav ailable Immunizations Name Administration Dates Next Due Moderna Covid-19 Multidose Vial Booster (18+ yea rs) 08/06/2021 Social History Tobacco Use Types Packs/Day Years Used Date Smoking Tobacco: Never Assessed Sex and Gender Information Value Date Recorded Sex Assigned at Not on file Legal Sex Male 1:53 PM EST Gender Identity Not on file Sexual Orientation Not on file Plan of Treatment Health Maintenance Due Date Last Done Comments Colorectal Cancer: COLONOSCOPY Screening every 10 yrs (or Modifier) 1965 Depression: Screening Annually using PHQ-2/9 in Adults 18 yrs or above (or HM Modifier)([facility]) 1981 Hepatitis C Virus Infection in Adolescents and Adults: Screening (or Modifier) ([facility]) 1981 SDOH Screening Reminder: Annually for all adults ([facility]) 1981 Tobacco Smoking Cessation: i n Adults excluding Women: Behavioral and Pharmacotherapy Interventions ([facility]) 1981 DTaP/Tdap/Td Vaccines ([facility]) (1 - Tdap) 1982 Lipid Screening: Every 5 yrs for Men aged 35+ (or HM Modifier) ([facility]) 1999 Colorectal Cancer Screening 45 -75 Yrs (or HM Modifier) 02/16/2008 Colorectal Cancer: FLEXIBLE SIGMOIDOSCOPY Screening every 5 yrs 02/16/2008 Colorectal Cancer: Fecal Immunochemical Test (FIT) Annually [facility] 02/16/2008 Colorectal Cancer: High-sensitivity gFOBT Screening Annually [facility] 02/16/2008 Colorectal Cancer: Stool Cologuard Screening every 3 yrs 02/16/2008 Colorectal Cancer:CT Colonography Screening every 5 yrs 02/16/2008 Zoster/Shingles Vaccine Series Screening: Adults aged 18+ yrs (or HM Modifiers)([facility]) (1 of 2) 2013 Flu Vaccination: Yearly for ages 18mos through 64 years (or Modifier)([facility]) 03/30/2024 COVID-19 Vaccine Screening: Initial Series and Booster Status ([facility]) ( - 2023-25 season) 2024 08/06/2021, 12/08/2020, 12/08/2020, Additional history exists RSV Vaccines (1 - 1-dose 75+ series) 2038 Pneumococcal Vaccination Screening: Pts 0-19 & 19-64 yrs of age ([facility]) Aged Out No longer eligible based on patient's age to complete this topic Medical Devices Not on file Insurance Care Teams Manager Of International Relationship Specialty Start Date End Date Gigi Mcwilliams DO [address] [facility] [place] [address] PCP - General Internal Medicine 08/06/21
--- OUTSIDE RECORDS SUMMARY | 2024-10-27 12:14 | XMS_ITS | Encounter Summary ---
Author Organization [facility] Address [phone] [facility] [employer] [place] [address] Care Team Providers Care Levers Lace Machine Operator Name Role Phone Gigi Mcwilliams DO Primary Care Provider [phone] Encounter Details Date Type Department Care Team (Latest Contact Info) Description 2023 Transcribe Orders Virtual Department [address] [place] [address] Charleen Larson PA 6 [facility] [place] [address] [place] [address] Gross hematuria (Primary Dx) Social History Tobacco Use Types Packs/Day Years [...] Description 12/15/2024 11:00 AM EDT Office Visit [facility] [address] [place] [address] Stacy Hendrickson MD 22 [facility], 1st [place] [address] 05/29/2025 12:00 PM EDT Office Visit [facility] [address] [facility] [address] [place] [address] Tuan Cortez DO [address] [place] [address] [email or web address] documented as of this encounter Visit Diagnoses Diagnosis Gross hematuria- Primary documented in this encounter Care Teams Levers Lace Machine Operator Relationship Specialty Start Date End Date Gigi Mcwilliams DO [email or web address] PCP - General Internal Medicine 09/28/14 documented as of this encounter Additional Source Comments The information contained in this document represents components of the legal health record. It is not the complete legal health record.[facility]
--- OUTSIDE RECORDS SUMMARY | 2024-10-27 12:14 | XMS_ITS | Encounter Summary ---
Author Organization [facility] Address [phone] [facility] [place] [address] Care Team Providers Care Sales Support Engineer Name Role Phone Gigi Mcwilliams Primary Care Provider [phone] Reason for Referral * MRI/CAT Scan - Closed Specialty Diagnoses / Procedures Referred By Riri yang Referred To Contact Radiology Diagnoses Chest pain on exertion Procedures NC Myocardial Perfusion Pharmacologic Stress Multiple Monse Don PA-C [address] [place] [address] Referral ID Status Reason Start Date Expiration Date Visits Re quested Visits Authorized [id number] Closed 08/06/2017 11/04/2017 1 1 Encounter Details Date Type Department Care Team (Late st Contact Info) Description 08/09/2017 Ancillary Orders Virtual Department [address] [place] [address] Monse Don PA-C [address] [place] [address] Chest pain on exertion Social History Tobacco [...] Description 12/15/2024 11:00 AM EDT Office Visit [facility] [address] [place] [address] Stacy Hendrickson MD [facility] 1[facility] [place] [address] 05/29/2025 12:00 PM EDT Office Visit [facility] [address] [place] [address] Tuan Cortez DO [address] [place] [address] [email or web address] documented as of this encounter Results * NC Myocardial Perfusion Pharmacologic Stress Multiple (08/18/2017 10:32 AM EST) Anatomical Region Laterality Modality Heart, Vascular Nuclear Medicine 08/18/2017 1:37 PM EST Impressions 08/18/2017 1:44 PM EST No scintigraphic evidence of ischemia, prior infarct or impaired LV function. POS [id number] Narrative 08/18/2017 1:44 PM EST A 2 day protocol was utilized. Initially rest imaging was performed with 26.8 mCi of Cardiolite. The following day gated SPECT stress imaging was performed with 29 mCi of Cardiolite injected during treadmill testing on which the patient achieved 83% of MPHR at a maximum workload of 10.4 METs. The preliminary report of the EKG portion of the study is not yet available. FINDINGS: Compared to similar study 06/16/2012 No significant perfusion defects are identified in the LV myocardium at rest or stress. Cine review of the gated study shows well preserved wall motion and thickening throughout the LV. Ejection fraction was estimated at 60% which seems subjectively appropriate and is unchanged since 2011. Procedure Note Martin Conway MD - 08/18/2017 A 2 day protocol was utilized. Initially rest imaging was performed with 26.8 mCi of Cardiolite. The following day gated SPECT stress imaging was performed with 29 mCi ofCardiolite injected during treadmill testing on which the patient [id number]% of MPHR at a maximum workload of 10.4 METs. The preliminary report of the EKG portion of the study is not yetavailable. FINDINGS: Compared to similar study 06/16/2012 No significant perfusion defects are identified in the LV myocardium atrest or stress. Cine review of the gated study shows well preserved wall motion andthickening throughout the LV. Ejection fraction was estimated at 60% which seems subjectivelyappropriate and is unchanged since 2011. IMPRESSION: No scintigraphic evidence of ischemia, prior infarct or impaired LVfunction. 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 per Infection Control as part of historical infection status reconciliation 04/02/2008 04/02/2008 11/16/19 22 1:35 AM EDT CoV-Risk Comment:Per Ambulatory Triage Form 04/23/2022 04/23/202204/24 7:52 AM EDT COVID-19 04/23/2022 04/23/2022 05/14/2022 1:21 AM EDT documented as of this encounter Care Teams Sales Support Engineer Relationship Specialty Start Date End Date Gigi Mcwilliams DO [email or web address] PCP - General Internal Medicine 09/28/14 documented as of this encounter Additional Source Comments The information contained in this document represents components of the legal health record. It is not the complete legal health record.[facility]
--- OUTSIDE RECORDS SUMMARY | 2024-10-27 12:14 | XMS_ITS | Encounter Summary ---
Author Organization [facility] Address [phone] [facility] [place] [address] Care Team Providers Care Search Lead Name Role Phone Gigi Mcwilliams Primary Care Provider [phone] Encounter Details Date Type Department Care Team (Late Contact Info) Description 04/06/2023 Ancillary Orders Virtual Department [address] [place] [address] Charleen Larson PA 6 [facility] [place] [address] [place] [address] Gross hematuria Social History Tobacco Use Types Packs/Day Years [...] Description 12/15/2024 11:00 AM EDT Office Visit [facility] [address] [place] [address] Stacy Hendrickson MD 22 [facility], 1st [place] [address] 05/29/2025 12:00 PM EDT Office Visit [facility] [address] [facility] [address] [place] [address] Tuan Cortez DO [address] [place] [id number] documented as of this encounter Results * US Kidneys (04/06/2023 11:29 AM EDT) Anatomical Region Laterality Modality Abdomen, Kidney Ultrasound 04/06/2023 3:24 PM EDT Impressions 04/06/2023 4:33 PM EDT No hydronephrosis or shadowing nephrolithiasis. Narrative 04/06/2023 4:33 PM EDT US KIDNEYS TECHNIQUE: Kidney Ultrasound. COMPARISON: UL ABD UPPER 2012- FINDINGS: Right Kidney: Size: 15.1 cm Normal. No stones or hydronephrosis. Left Kidney: Size: 16.9 cm Simple appearing interpolar cortical cyst. No stones or hydronephrosis. Bladder: Normal. Procedure Note Gigi Winslow MD - 04/06/2023 US KIDNEYS TECHNIQUE: Kidney Ultrasound. COMPARISON: UL ABD UPPER FINDINGS: Right Kidney: Size: 15.1 cm Normal. No stones or hydronephrosis. Left Kidney: Size: 16.9 cm Simple appearing interpolar cortical cyst. No stones or hydronephrosis. Bladder: Normal. IMPRESSION: No hydronephrosis or shadowing nephrolithiasis. Charleen HERBERT RENAL documented in this encounter Visit Diagnoses Diagnosis Gross hematuria Gross hematuria documented in this encounter Care Teams Search Lead Relationship Specialty Start Date End Date Gigi Mcwilliams DO [email or web address] PCP - General Internal Medicine 09/28/14 documented as of this encounter Additional Source Comments The information contained in this document represents components of the legal health record. It is not the complete legal health record.[facility]
--- OUTSIDE RECORDS SUMMARY | 2024-10-27 12:14 | XMS_ITS | Encounter Summary ---
Author Organization [facility] Address [phone] [facility] [employer] [place] [address] Care Team Providers Care Utility Service Worker Name Role Phone Gigi Mcwilliams Primary Care Provider [phone] Reason for Referral * MRI/CAT Scan - Closed Specialty Diagnoses / Procedures Referred By Riri yang Referred To Contact Radiology Diagnoses Left knee pain, unspecified chronicity Procedures MRI Knee (Left) CHG MRI LOWER EXTREM JT, W/O CONTRAST Charleen Larson PA [address] [place] [address] [place] [address] Referral ID Status Reason Start Date Expiration Date Visits Re quested Visits Authorized [id number] Closed 04/26/2023 05/26/2023 1 1 Encounter Details Date Type Department Care Team (Latest Contact Info) Description 04/05/2023 Transcribe Orders Virtual Department [address] [place] [address] Charleen Larson PA [address] [place] [address] [place] [address] Left knee pain, unspecified chronicity (Primary Dx); Gross hematuria Social History Tobacco Use Types [...] Description 12/15/2024 11:00 AM EDT Office Visit [facility] [address] [place] [address] [place] [address] Stacy Hendrickson MD 22 [facility], 1st [place] [address] 05/29/2025 12:00 PM EDT Office Visit [facility] [address] [place] [address] [address] Tuan Cortez DO [address] [place] [address] documented as of this encounter Results * MRI KNEE WITHOUT CONTRAST (LEFT) (05/04/2023 10:35 AM EDT) Anatomical Region Laterality Modality Knee Left Magnetic Resonan ce 05/06/2023 1:22 AM EDT Impressions 05/06/2023 11:50 PM EDT Complex medial and lateral compartment meniscal tears. Tricompartmental cartilage loss, moderate to severe in the patellofemoral, moderate in the lateral, and mild to moderate in the medial compartments. 4.7 cm ill-defined, peripherally T1 and T2 hypointense, internally T2 hyperintense structure in the supra patellar fat pad with questionable intrasubstance fat signal on T1 images. 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 This could potentially trigger mechanical symptoms. Mild to moderate chronic appearing distal quadriceps tendinopathy with partial tearing. Narrative 05/06/2023 11:50 PM EDT MRI KNEE WITHOUT CONTRAST (LEFT) TECHNIQUE: MRI KNEE WITHOUT CONTRAST (LEFT) COMPARISON: KNEE 4 V LT FINDINGS: MEDIAL COMPARTMENT: Complex degenerative tearing of the medial meniscus with diffuse displacement of the medial joint recess. Mild to moderate diffuse cartilage surface irregularity without full-thickness defect or subchondral marrow edema. LATERAL COMPARTMENT: Diffuse irregular tearing of the lateral meniscus body and anterior horn with peripheral displacement of the lateral joint recess. Moderate diffuse cartilage loss in the lateral compartment with subtle subchondral marrow edema (7:19). PATELLOFEMORAL COMPARTMENT: Lateral patellar tilt. Moderate to high-grade diffuse cartilage loss of the lateral patellar facetal and central/lateral femoral trochlea. TENDONS: Diffuse distal quadriceps tendinopathy with mild to moderate grade partial tearing of the patellar attachment. Patellar and popliteus tendons intact. LIGAMENTS: ACL diffusely thickened with intrasubstance cystic-appearing structures, may reflect ACL ganglion or chronic degeneration. PCL, MCL, and LCL complex intact. BONE: No fracture, osteonecrosis, or focal lesion. JOINT: ??Large joint effusion. 4.7 cm ill-defined peripherally T1 and T2 hypointense, internally T2 hyperintense structure in the supra patellar fat pad which questionably has intrasubstance fat signal on T1 images (7:8, 3:5). Irregular soft tissue ganglion arising from the posterior joint capsule in the popliteal fossa (3:20). Procedure Note Halley Thorne MD - 05/06/2023 MRI KNEE WITHOUT CONTRAST (LEFT) TECHNIQUE: MRI KNEE WITHOUT CONTRAST (LEFT) COMPARISON: KNEE 4 V LT FINDINGS: MEDIAL COMPARTMENT: Complex degenerative tearing of the medial meniscuswith diffuse displacement of the medial joint recess. Mild to moderatediffuse cartilage surface irregularity without full-thickness defect orsubchondral marrow edema. LATERAL COMPARTMENT: Diffuse irregular tearing of the lateral meniscusbody and anterior horn with peripheral displacement of the lateral jointrecess. Moderate diffuse cartilage loss in the lateral compartment withsubtle subchondral marrow edema (7:19). PATELLOFEMORAL COMPARTMENT: Lateral patellar tilt. Moderate to high-gradediffuse cartilage loss of the lateral patellar facetal and central/lateralfemoral trochlea. TENDONS: Diffuse distal quadriceps tendinopathy with mild to moderategrade partial tearing of the patellar attachment. Patellar and popliteustendons intact. LIGAMENTS: ACL diffusely thickened with intrasubstance cystic- appearingstructures, may reflect ACL ganglion or chronic degeneration. PCL, MCL,and LCL complex intact. BONE: No fracture, osteonecrosis, or focal lesion. JOINT: Large joint effusion. 4.7 cm ill-defined peripherally T1 and [id number], internally T2 hyperintense structure in the supra patellarfat pad which questionably has intrasubstance fat signal on T1 images(7:8, 3:5). Irregular soft tissue ganglion arising from the posteriorjoint capsule in the popliteal fossa (3:20). IMPRESSION: Complex medial and lateral compartment meniscal tears. Tricompartmental cartilage loss, moderate to severe in the patellofemoral,moderate in the lateral, and mild to moderate in the medialcompartments. 4.7 cm ill-defined, peripherally T1 and T2 hypointense, internally [id number] structure in the supra patellar fat pad with questionableintrasubstance fat signal on T1 images. 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 This couldpotentially trigger mechanical symptoms. Mild to moderate chronic appearing distal quadriceps tendinopathy withpartial tearing. Charleen HERBERT MR EXTREMITY documented in this encounter Visit Diagnoses Diagnosis Left knee pain, unspecified chronicity- Primary Gross hematuria Left knee pain, unspecified chronicity documented in this encounter Care Teams Utility Service Worker Relationship Specialty Start Date End Date Gigi Mcwilliams DO [phone] (work) [email or web address] PCP - General Internal Medicine 09/28/14 documented as of this encounter Additional Source Comments The information contained in this document represents components of the legal health record. It is not the complete legal health record.[facility]
--- OUTSIDE RECORDS SUMMARY | 2024-10-27 12:14 | XMS_ITS | Encounter Summary ---
Author Organization [facility] Address [phone] [place] [address] Care Team Providers Care Primer Supervisor Name Role Phone Gigi Mcwilliams DO Primary Care Provider [phone] Encounter Details Date Type Department Care Team (Late st Contact Info) Description 07/12/2017 Ancillary Orders [facility] External Provider Virtual Department [address] [place] [address] Monse Don PA-C [address] [place] [address] Chest pain on exertion Social History Tobacco [...] Description 12/15/2024 11:00 AM EDT Office Visit [facility] [address] [place] [address] Stacy Hendrickson MD 22 [facility], 1st [place] [address] 05/29/2025 12:00 PM EDT Office Visit [facility] [address] [place] [address] Tuan Cortez DO [address] [place] [address] documented as of this encounter Visit Diagnoses [...] documented as of this encounter Care Teams Primer Supervisor Relationship Specialty Start Date End Date Gigi Mcwilliams DO PCP - General Internal Medicine 09/28/14 documented as of this encounter Additional Source Comments The information contained in this document represents components of the legal health record. It is not the complete legal health record.[facility]
--- OUTSIDE RECORDS SUMMARY | 2024-10-27 12:15 | XMS_ITS | Encounter Summary ---
Author Organization [facility] Address [phone] [place] [address] Care Team Providers Care Phone Banker Name Role Phone Gigi Mcwilliams Prudencio VALLECILLO Primary Care Provider [phone] Reason for Referral * Outpatient Procedure - New Request Specialty Diagnoses / Procedures Referred By Riri yang Referred To Contact Diagnoses Cardiac murmur, unspecified Palpitations Procedures Adult Echo TTE Tuan Cortez DO [address] [place] [address] Email: [email or web address] Referral ID Status Reason Start Date Expiration Date V isits Requested Visits Authorized [id number] New Request 08/07/2024 1 1 Reason for Visit * Outpatient Procedure - New Request Specialty Diagnoses / Procedures Referred By Riri yang Referred To Contact Diagnoses Cardiac murmur, unspecified Palpitations Procedures Adult Echo TTE Tuan Cortez DO [address] [place] [address] Email: Referral ID Status Reason Start Date Expiration Date V isits Requested Visits Authorized [id number] New Request 08/07/2024 1 1 Encounter Details Date Type Department Care Team (Latest Contact Info) Description 10/05/2024 10:15 AM EST - 10/05/2024 11:59 PM EST Hospital Encounter Echo Lab [address] [place] [address] Tuan Cortez DO [address] [place] [address] [email or web address] Discharge Disposition: Home or Self Care Social History Tobacco Use Types Packs/Day Years [...] PM EDT documented as of this encounter Medications at Time of Discharge Medication Sig Dispensed Refills Start Date End Date alfuzosin (UROXATRAL) 10 mg 24 hr tablet Take 10 mg by mouth daily. amLODIPine (NORVASC) 10 MG tablet Take 10 mg by mouth daily. apixaban (ELIQUIS) 5 mg tabletIndications:Medi cation refill Take 1 tablet (5 mg total) by mouth 2 (two) times a day. 180 tablet 07/25/2024 BD TERESA 2ND GEN PEN NEEDLE 32 gauge x 5/32 NdleIndications:Type 2 diabetes mellitus without complication, without long-term current use of insulin INJECT 1 EACH UNDER THE SKIN DAILY. ALSO USE FOR ONCE WEEKLY OZEMPIC INJECTION. E11.9 100 each 3 10/21/2023 FREESTYLE ANNETTE 3 PLUS SENSOR DeviIndications:Type 2 diabetes mellitus without complication, without long-term current use of insulin Apply as directed every 15 days 6 each 3 08/13/2024 LANTUS SOLOSTAR U-100 INSULIN 100 unit/mL (3 mL) InPn injection penIndications:Type 2 diabetes mellitus without complication, without long-term current use of insulin Inject 60 Units under the skin daily. 30 mL 11 12/06/2023 losartan-hydroCHLOROth iazide (HYZAAR) 100-25 mg per tablet losartan 100 mg-hydrochlorothiazi de 25 mg tablet lovastatin (MEVACOR) 40 MG tablet lovastatin 40 mg tablet metFORMIN (GLUCOPHAGE-XR) 500 MG 24 hr tablet Take 1,000 mg by mouth daily with breakfast. metoprolol succinate (TOPROL-XL) 50 MG 24 hr tablet Take 2 tablets (100 mg total) by mouth daily. 180 tablet 3 08/22/2024 08/17/2025 omega-3 fatty acids-fish oil 340-1,000 mg Cap Take 1 capsule by mouth daily. MOUNJARO 7.5 mg/0.5 mL PnIj subcutaneous penIndications:Type 2 diabetes mellitus without complication, without long-term current use of insulin Inject 0.5 mL (7.5 mg total) under the skin every 7 days. 2 mL 1 08/21/2024 10/10/2024 documented as of this encounter Plan of Treatment Upcoming Encounters Date Type Department Care Team (Late st Contact Info) Description 12/15/2024 11:00 AM EDT Office Visit [facility] [address] [place] [address] [place] [address] Stacy Hendrickson MD 22 [facility], 1st [place] [address] 05/29/2025 12:00 PM EDT Office Visit [facility] [address] [place] [address] [place] [address] Tuan Cortez DO [address] [place] [address] [email or web address] documented as of this encounter Procedures Procedure Name Priority Date/Time Associated Diagnosis Comments TTE COMPREHENSIVE Routine 10/05/2024 10: 56 AM EST Cardiac murmur, unspecified Palpitations documented in this encounter Results * TTE COMPREHENSIVE (10/05/2024 10:56 AM EST) Height 196 cm Weight 158 kg Interventricular Septum Thickness 11 6 - 11 mm Left Ventricle Internal Diameter End Diastole 56 42 - 58 mm Left Ventricle Internal Diameter End Systole 32 <40 mm Left Ventricular Outflow Tract Diameter 25.0 mm Left Ventricular Posterior Wall Thickness 11 6 - 11 mm Ejection Fraction 82 50 - 75 Percent Left Atrium Dimension Anterior-Posterior 45 15 - 40 mm Aortic Valve Peak Velocity 164.0 cm/s Aortic Valve Peak Gradient 11 mmHg Aortic Valve Mean Gradient 6 mmHg Aortic Valve Time Velocity Integral 329.0 mm Aortic Valve Time Velocity Integral 329.0 mm Aortic Sinus Diameter 37 <40 mm Ascending Aorta Diameter 38 <36 mm Mitral Valve Deceleration Time 192 ms Mitral Valve A Wave Speed 69.9 cm/s Mitral Valve E Wave Speed 64.7 cm/s Right Ventricle Basal Diameter 37 25 - 41 mm Raw LV EF% 67 % Relative Wall Thickness 0.39 0.22 - 0.42 Aortic Valve Prosthetic Peak Gradient 11 mmHg Aorta Sinus Index by Height 1.89 cm/m Aorta Sinus CSA index by Height 5.48 cm2/m Asc Aorta CSA Index by Height 5.78 cm2/m Aortic Valve Prosthetic Mean Gradient 6 mmHg Body Surface Area 2.83 m2 Left Atrial Volume Index 28 16 - 34 mL/m2 Left Ventricle Ea Lateral Wave Speed 11.0 cm/s MV E/E' Tissue Velocity Lateral 5.91 Aortic Valve Peak Velocity 1.6 m/s Left Ventricle E Wave Speed 65.0 cm/s Left Ventricle A Wave Speed 70.0 cm/s MV E/A ratio 0.9 Left Ventricle Ea Septal Wave Speed 9.1 cm/s MV E/e' septal 7.14 Left Ventricle E/e' Average 6.5 Left Atrial Volume 80 mL Left Atrial Volume Index by Height 41 mL/m Right Atrium Area 22 cm2 Right Atrium Area index 8 cm2/m2 Aortic Valve Sinus Index by BSA 13 mm/m2 Ascending Aorta Index 13 mm/m2 Ascending Aorta Index 13 mm Aortic Sinus Index 13 mm Ascending Aorta Diameter 13 mm Aortic Valve Sinus Index 1 13 20 - 32 mm AO ASC DIAM BSA INDEX 13.43 Echo E/Ea 7.14 Anatomical Region Laterality Modality Heart Ultrasound Narrative 10/06/2024 9:07 AM EST Images from the original result were not included. 1. ??This patient was imaged during normal sinus rhythm. ??The estimated ejection fraction is 60 to 65%. ??Diastolic function was normal left ventricular thickness is normal and there are no regional wall motion abnormalities. 2. ??Normal RV size and function. 3. ??Trileaflet aortic valve with no evidence of aortic stenosis, the ascending aortic root is 38 mm. 4. ??Trace mitral and trace tricuspid sufficiency, the PA pressure was not able to be calculated. 5. ??Normal pericardium and when compared to the prior echo, no significant change. Left Ventricle The left ventricle is normal in size. The LV internal diameter is 56 mm (normal: M 42-58 mm; F 37-52 mm) at end diastole, and 32 mm (normal: M < 40 mm; F < 35 mm) at end systole. There is normal wall thickness. The interventricular septal thickness is 11 mm (normal: 6-11 mm). The LV posterior wall thickness is 11 mm (normal: 6-11 mm). There is normal left ventricular systolic function. The LV ejection fraction is 60-65% (visually estimated, due to poor image quality). LV diastolic function appears within normal limits for age. Right Ventricle The right ventricle is normal in size. There is normal right ventricular systolic function. Left Atrium The left atrium is normal in size. Right Atrium The right atrium is mildly dilated. The right atrial area is 22 cm2. The IVC is not assessed. Mitral Valve The mitral valve is suboptimally visualized. The mitral valve appears normal. There is no mitral stenosis. There is trace mitral regurgitation. Tricuspid Valve The tricuspid valve appears normal. There is no tricuspid stenosis. There is trace tricuspid regurgitation. RV systolic pressure could not be estimated due to insufficient TR Doppler envelope. Aortic Valve The aortic valve is tricuspid. There is no aortic stenosis. There is mild to moderate aortic regurgitation. The visualized portions of the thoracic aorta appear normal in size. The aortic sinus diameter is 37 mm. The aortic sinus index by BSA is 13 mm/m2. The ascending aortic diameter is 38 mm. The ascending aorta index by BSA is 13 mm/m2. Pulmonic Valve The pulmonic valve appears normal. There is no pulmonic stenosis. There is trace pulmonic regurgitation. Pericardium The pericardium is not well visualized (no subcostal windows). The pericardium appears normal. There is no pericardial effusion. General Findings The study was technically difficult (4). Study quality explanation: body habitus. Technique(s) used in the evaluation: Multiplane, Color flow Doppler, Spectral Doppler and Epiaortic scan. Comparison Findings Compared to prior TTE report on 05/30/2020, IAS/IVS The interatrial septum is not assessed. The interventricular septum is not assessed. Tuan Cortez DO CV ECHO ORDERABLES documented in this encounter Visit Diagnoses Diagnosis Cardiac murmur, unspecified Palpitations documented in this encounter Care Teams Phone Banker Relationship Specialty Start Date End Date Gigi Mcwilliams DO [email or web address] PCP - General Internal Medicine 09/28/14 documented as of this encounter Additional Source Comments The information contained in this document represents components of the legal health record. It is not the complete legal health record.[facility]
--- OUTSIDE RECORDS SUMMARY | 2024-10-27 12:15 | XMS_ITS | Encounter Summary ---
Author Organization [facility] Address [phone] [place] [address] Care Team Providers Care Certified Rehabilitation Counselor Name Role Phone Gigi Mcwilliams Primary Care Provider [phone] Encounter Details Date Type Department Care Team (Late st Contact Info) Description 08/07/2024 Procedure Pass Echo Lab [facility] [place], [place] [id number] Social History Tobacco Use Types Packs/Day Years [...] Description 12/15/2024 11:00 AM EDT Office Visit [facility] [address] [place] [address] Stacy Hendrickson MD 22 [facility], 1st [place] [address] 05/29/2025 12:00 PM EDT Office Visit [facility] [address] [address] Tuan Cortez DO [address] [place] [address] documented as of this encounter Visit Diagnoses Not on filedocumented in this encounter Care Teams Certified Rehabilitation Counselor Relationship Specialty Start Date End Date Gigi Mcwilliams DO PCP - General Internal Medicine 09/28/14 documented as of this encounter Additional Source Comments The information contained in this document represents components of the legal health record. It is not the complete legal health record.[facility]
--- OUTSIDE RECORDS SUMMARY | 2024-10-27 12:15 | XMS_ITS | Encounter Summary ---
Author Organization [facility] Address [phone] [place] [address] Care Team Providers Care Hydro Plant Site Manager Name Role Phone Gigi Mcwilliams Primary Care Provider [phone] Reason for Visit * Reason Comments Medication Refill Encounter Details Date Type Department Care Team (Late st Contact Info) Description 08/21/2024 Refill [facility] [address] [place] [address] Stacy Hendrickson MD 22 [facility], 1st [place] [address] Medication Refill Social History Tobacco Use Types Packs/Day Years [...] Description 12/15/2024 11:00 AM EDT Office Visit [facility] [address] [place] [address] Stacy Hendrickson MD 22 [facility], 1st [place] [address] 05/29/2025 12:00 PM EDT Office Visit [facility] [address] [facility] [address] [place] [address] Tuan Cortez DO [address] [place] [address] documented as of this encounter Visit Diagnoses Diagnosis Type 2 diabetes mellitus without complication, without long-term current use of insulin documented in this encounter Care Teams Hydro Plant Site Manager Relationship Specialty Start Date End Date Gigi Mcwilliams DO PCP - General Internal Medicine 09/28/14 documented as of this encounter Additional Source Comments The information contained in this document represents components of the legal health record. It is not the complete legal health record.[facility]
--- OUTSIDE RECORDS SUMMARY | 2024-10-27 12:17 | XMS_ITS | Encounter Summary ---
Author Organization [facility] Address [phone] [place] [address] Care Team Providers Care Textile Machinery Sales Representative Name Role Phone Gigi Mcwilliams Primary Care Provider [phone] Encounter Details Date Type Department Care Team (Late st Contact Info) Description 07/04/2020 Ancillary Orders Non-Invasive Cardiology 30 [place] [address] Tuan Cortez DO [address] [place] [address] Chest pain, unspecified type Social History Tobacco Use Types Packs/Day Years [...] Description 12/15/2024 11:00 AM EDT Office Visit [facility] 22 [place] [address] Stacy Hendrickson MD 22 [facility], 1st [place] [address] 05/29/2025 12:00 PM EDT Office Visit [facility] Venita [address]us [place] [address] [place] [address] Tuan Cortez DO 50 [place] [address] [email or web address] documented as of this encounter Results * NC Stress Result for Nuclear Stress Test (07/04/2020 12:29 PM EST) Max BP Systolic 224 mmHg [facility] Max HR 141 BPM [facility] Resting HR 80 BPM [facility] Resting BP Systolic 142 mmHg [facility] Resting BP Diastolic 70 mmHg [facility] Peak METS 4.7 METS [facility] Peak HR 133 BPM [facility] Anatomical Region Laterality Modality Heart Other 06/05/2020 10:5 1 AM EDT 07/04/2020 11:53 AM EST Narrative 07/04/2020 5:06 PM EST Response to Stress The patient exercised for minutes seconds, achieving 4.7 METS at peak exercise. Baseline blood pressure was 142/70 mmHg, and baseline heart rate was 80 bpm. The patient achieved a peak heart rate of 133 bpm, which is% of their maximum predicted heart rate. REPORT- Pt exercised for 6;26 min on a AMANDA protocol achieving 7.0 METS. Test terminated due to fatigue. Baseline resting HR was 80bpm. Max heart rate achieved was 163 (86%MPHR). 1. EKG - Baseline EKG showed SR, 80bpm. During exercise there were some horizontal to upsloping ST depressions in V4-V6 that did not meet criteria for ischemia. 2. SYMPTOMS - He did develop chest pressure in exercise that started as 1/10, and increased to 4/10, chest pressure resolve din recovery and lasted 1-2 minutes into recovery. 3. EXERCISE PHYSIOLOGY - Fair functional capacity for age. Hypertensive response to exercise. BP 142/70 at rest, BP 224 over palp during peak exercise, BP 148/78 on discharge from stress lab 4. ARRHYTHMIAS - Rare PVC Conclusion - There were no EKG changes suggestive of ischemia that did not meet criteria, there were also symptoms concerning for angina. Hypertensive response to exercise. Reduced functional capacity for age. Nuclear images pending and will be reported separately. Shiela Mays NP with Dr. Delgado. 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 per Infection Control as part of historical infection status reconciliation 04/02/2008 04/02/2008 11/16/19 22 1:35 AM EDT CoV-Risk Comment:Per Ambulatory Triage Form 04/23/2022 04/23/202204/24 7:52 AM EDT COVID-19 04/23/2022 04/23/2022 05/14/2022 1:21 AM EDT documented as of this encounter Care Teams Textile Machinery Sales Representative Relationship Specialty Start Date End Date Gigi Mcwilliams DO [email or web address] PCP - General Internal Medicine 09/28/14 documented as of this encounter Additional Source Comments The information contained in this document represents components of the legal health record. It is not the complete legal health record.[facility]
--- OUTSIDE RECORDS SUMMARY | 2024-10-27 12:17 | XMS_ITS | Encounter Summary ---
Author Organization [facility] Address [phone] [place] [address] Care Team Providers Care Armhole Baster Jumpbasting Name Role Phone Gigi Mcwilliams Primary Care Provider [phone] Encounter Details Date Type Department Care Team (Late st Contact Info) Description 05/27/2020 Procedure Pass [facility] Cardiovascular And Interventional Radiology [address] [place] [address] Social History Tobacco Use Types Packs/Day Years [...] Description 12/15/2024 11:00 AM EDT Office Visit [facility] [address] [place] [address] [place] [address] Stacy Hendrickson MD 22 [facility], 1st [place] [address] 05/29/2025 12:00 PM EDT Office Visit [facility] [address] [place] [address] [address] Tuan Cortez DO [address] [place] [address] [email or web address] documented as of this encounter Visit Diagnoses [...] documented as of this encounter Care Teams Armhole Baster Jumpbasting Relationship Specialty Start Date End Date Gigi Mcwilliams DO [email or web address] PCP - General Internal Medicine 09/28/14 documented as of this encounter Additional Source Comments The information contained in this document represents components of the legal health record. It is not the complete legal health record.[facility]
--- OUTSIDE RECORDS SUMMARY | 2024-10-27 12:17 | XMS_ITS | Encounter Summary ---
Author Organization [facility] Address [phone] [place] [address] Care Team Providers Care It Technical Specialist Name Role Phone Gigi Mcwilliams DO Primary Care Provider [phone] Encounter Details Date Type Department Care Team (Late st Contact Info) Description 08/17/2017 Ancillary Orders Non-Invasive Cardiology 30 [place] [address] Monse Don PA-C [address] [place] [address] Chest pain on exertion Social History Tobacco [...] Description 12/15/2024 11:00 AM EDT Office Visit [facility] [address] [place] [address] Stacy Hendrickson MD 22 [facility], 1st [place] [address] 05/29/2025 12:00 PM EDT Office Visit [facility] [address] [place] [address] Tuan Cortez DO [address] [place] [address] documented as of this encounter Visit Diagnoses [...] documented as of this encounter Care Teams It Technical Specialist Relationship Specialty Start Date End Date Gigi Mcwilliams DO PCP - General Internal Medicine 09/28/14 documented as of this encounter Additional Source Comments The information contained in this document represents components of the legal health record. It is not the complete legal health record.[facility]
--- OUTSIDE RECORDS SUMMARY | 2024-10-27 12:17 | XMS_ITS | Encounter Summary ---
Author Organization [facility] Address [phone] [place] [address] Care Team Providers Care Animal Impersonator Name Role Phone Gigi Mcwilliams Primary Care Provider [phone] Encounter Details Date Type Department Care Team (Late st Contact Info) Description 09/08/2021 Telephone [employer] [facility] [address] [place] [address] [place] [address] Stacy Hendrickson MD 22 [facility], 1st [place] [address] [email or web address] Social History Tobacco Use Types Packs/Day Years [...] PM EDT documented as of this encounter Progress Notes * Chaka Tao [place] - 09/08/2021 5:35 PM EST Walk in for CGM so he can have data for OV. Also states he experiences pain for a week after injecting Bydureon. Ozempic approved by [facility] documented in this encounter Plan of Treatment Upcoming Encounters Date Type Department Care Team (Late st Contact Info) Description 12/15/2024 11:00 AM EDT Office Visit [facility] [address] [place] [address] Stacy Hendrickson MD 22 [facility], 1st [place] [address] 05/29/2025 12:00 PM EDT Office Visit [facility] [address] [facility] 301 [place] [address] Tuan Cortez DO [address] [place] [address] documented as of this encounter Visit Diagnoses [...] documented as of this encounter Care Teams Animal Impersonator Relationship Specialty Start Date End Date Gigi Mcwilliams DO PCP - General Internal Medicine 09/28/14 documented as of this encounter Additional Source Comments The information contained in this document represents components of the legal health record. It is not the complete legal health record.[facility]
--- OUTSIDE RECORDS SUMMARY | 2024-10-27 12:17 | XMS_ITS | Encounter Summary ---
Author Organization [facility] Address [phone] [place] [address] Care Team Providers Care Pigment Making Supervisor Name Role Phone Gigi Mcwilliams DO Primary Care Provider [phone] Encounter Details Date Type Department Care Team (Latest Contact Info) Description 11/28/2018 Transcribe Orders Virtual Department 30 [place] [address] Ava Bray CNP 12 [place] [address] [email or web address] Abnormal findings on diagnostic imaging of skull and head, not elsewhere classified (Primary Dx) Social History Tobacco Use Types [...] Description 12/15/2024 11:00 AM EDT Office Visit [facility] [address] [place] [address] Stacy Hendrickson MD 22 [facility], 1st Floor [place], [place] [id number] 05/29/2025 12:00 PM EDT Office Visit [facility] [address] [place] [address] Tuan Cortez DO 50 [place] [address] documented as of this encounter Visit Diagnoses Diagnosis Abnormal findings on diagnostic imaging of skull and head, not elsewhere classified- Primary documented in this encounter Additional Health Concerns Infection Onset Date Last Indicated Resolved Time MRSA Comment:Import to add expiration date of 11/15/2021 per Infection Control as part of historical infection status reconciliation 04/02/2008 04/02/2008 11/16/19 1:35 AM EDT CoV-Risk Comment:Per Ambulatory Triage Form 04/23/2022 04/23/202204/24 7:52 AM EDT COVID-19 04/23/2022 04/23/2022 05/14/2022 1:21 AM EDT documented as of this encounter Care Teams Pigment Making Supervisor Relationship Specialty Start Date End Date Gigi Mcwilliams DO [email or web address] PCP - General Internal Medicine 09/28/14 documented as of this encounter Additional Source Comments The information contained in this document represents components of the legal health record. It is not the complete legal health record.[facility]
--- OUTSIDE RECORDS SUMMARY | 2024-10-27 12:17 | XMS_ITS | Encounter Summary ---
Author Organization [facility] Address [phone] [facility]ly [facility] [email or web address] [place] [address] Care Team Providers Care Door Manager Name Role Phone Gigi Mcwilliams Primary Care Provider [phone] Reason for Referral * Outpatient Procedure - Closed Specialty Diagnoses / Procedures Referred By Riri yang Referred To Contact Diagnoses TIA (transient ischemic attack) Procedures Adult Echo TTE Lalito Turner MD [address] [place] [address], [address] [place] [phone] Email: [email or web address] Referral ID Status Reason Start Date Expiration Date Visits Re quested Visits Authorized [id number] Closed 02/09/2019 02/09/2020 1 1 Encounter Details Date Type Department Care Team (Latest Contact Info) Description 02/09/2019 Transcribe Orders Virtual Department 30 [place], [place] [id number] Lalito Turner MD [address] [place] [address], [address] [place] [address] [phone] [email or web address] TIA (transient ischemic attack) (Primary Dx) Social History Tobacco Use Types [...] Description 12/15/2024 11:00 AM EDT Office Visit [facility] [address] [place] [address] St[facility] MD [facility] 1st [place] [address] 05/29/2025 12:00 PM EDT Office Visit [facility] [address] [address] Tuan Cortez DO [address] [place] [address] documented as of this encounter Results * TTE COMPREHENSIVE (03/10/2019 11:06 AM EDT) Body Surface Area 2.9 m2 Height 195 cm Weight 163 kg Systolic BP 145 mmHg Diastolic BP 87 mmHg Left Atrium Dimension Anterior-Posterior 44 15 - 40 mm Aortic Valve Peak Velocity 140.0 cm/s Aortic Valve Peak Gradient 8 mmHg Aortic Valve Mean Gradient 4 mmHg Aortic Valve Time Velocity Integral 274 mm Aortic Sinus Diameter 30 mm Ascending Aorta Diameter 32 mm Interventricular Septum Thickness 12 mm Left Ventricle Internal Diameter End Diastole 50 42 - 58 mm Left Ventricle Internal Diameter End Systole 33 25 - 40 mm Left Ventricular Outflow Tract Diameter 21.0 mm LVOT VTI REST 200 mm Left Ventricular Outflow Tract Velocity 1.0 m/s Left Ventricular Outflow Tract Gradient at Rest 4 mmHg Left Ventricular Posterior Wall Thickness 14 mm Ejection Fraction 63 50 - 75 Percent Mitral Valve Deceleration Time 194 ms Mitral Valve A Wave Speed 52.6 cm/s Mitral Valve E Wave Speed 86.3 cm/s Right Ventricle Basal Diameter 33.2 25 - 41 mm Raw LV EF% 56 % Left Atrial Volume 68 mL Left Atrial Volume Index 23.45 mL/m2 Right Ventricle TAPSE 2 mm Aortic Valve Sinus Index 1 10 20 - 32 mm Ascending Aorta Diameter 11 mm Aortic Sinus Index 10 mm Ascending Aorta Index 11 mm Anatomical Region Laterality Modality Heart Ultrasound Narrative 03/10/2019 1:52 PM EDT ?? There is mild concentric left ventricular hypertrophy. Left ventricular systolic function is normal. There are no segmental left ventricular wall motion abnormalities noted. The estimated ejection fraction is 63% (Normal 50-75%) ?? Mild aortic regurgitation ?? Trace mitral regurgitation ?? Compared to a prior report from 06/15/2012, no important changes Left Ventricle Left ventricular cavity size is normal and the left ventricular wall thickness is increased. There is mild concentric left ventricular hypertrophy. Left ventricular systolic function is normal. There are no segmental left ventricular wall motion abnormalities noted. The estimated ejection fraction is 63% (Normal 50-75%). The left ventricular ejection fraction was measured by the single dimension method. Left ventricular diastolic function appears within normal limits for age. There is no evidence of left ventricular thrombus. Right Ventricle The right ventricular size is normal. The right ventricular systolic function is normal. Left Atrium The left atrium is normal in size. The LA volume index is 23.45 mL/m2 (normal indexed value is 16-34 mL/m2). The pulmonary venous flow profiles are normal. Right Atrium The right atrium is normal in size. Mitral Valve The mitral valve appears normal. E/A ratio is 1.6. E/E' avg is 8.2. Lat E' velocity is 10.4cm/s. Med E' velocity is 10.7cm/s. There is no evidence of mitral stenosis. There is trace mitral regurgitation detected by spectral and color Doppler. Tricuspid Valve The tricuspid valve appears normal. There is no evidence of tricuspid stenosis. There is evidence of trace tricuspid regurgitation by color and spectral Doppler. There is an insufficient tricuspid regurgitation Doppler profile to calculate a right ventricular systolic pressure. Aortic Valve The aortic valve appears normal. The aortic valve is tricuspid. There is no evidence of valvular aortic stenosis. The peak aortic valve gradient is 8 mmHg. The mean aortic gradient is 4 mmHg. There is evidence of mild aortic regurgitation by color and spectral Doppler. The visualized portions of the thoracic aorta appear normal. Pulmonic Valve The pulmonary valve appears normal. There is no evidence of pulmonic stenosis. There is evidence of trace pulmonary regurgitation by color and spectral Doppler. Pericardium There is no evidence of pericardial effusion. Interatrial Septum The interatrial septum appears normal. There is no evidence of aneurysm of the interatrial septum. Interventricular Septum Interventricular septal motion appears normal. There is no evidence of a ventricular septal defect. General Findings The image quality was good (2). Technique(s) used in the evaluation: Color flow Doppler and Spectral Doppler. The predominant rhythm during the study was sinus. Comparison Findings Compared to a prior report from 06/15/2012, no important changes. 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 PCP - General Internal Medicine 09/28/14 documented as of this encounter Additional Source Comments The information contained in this document represents components of the legal health record. It is not the complete legal health record.[facility]
--- OUTSIDE RECORDS SUMMARY | 2024-10-27 12:17 | XMS_ITS | Encounter Summary ---
Author Organization [facility] Address [phone] [place] [address] Care Team Providers Care Rfp Writer Name Role Phone Gigi Mcwliliams DO Primary Care Provider [phone] Encounter Details Date Type Department Care Team (Late Contact Info) Description 10/28/2018 Ancillary Orders Virtual Department 30 [place] [address] Monse Don PA-C [address] [place] [address] Left knee pain, unspecified chronicity; Diplopia Social History Tobacco Use Types Packs/Day Years [...] Description 12/15/2024 11:00 AM EDT Office Visit [facility] 22 [place] [address] Stacy Hendrickson MD 22 [facility], 1st [place] [address] 05/29/2025 12:00 PM EDT Office Visit [facility] [address] [place] [address] Tuan Cortez DO 50 [place] [address] documented as of this encounter Visit Diagnoses Diagnosis Left knee pain, unspecified chronicity Diplopia documented in this encounter Additional Health Concerns Infection Onset Date Last Indicated Resolved Time 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 PCP - General Internal Medicine 09/28/14 documented as of this encounter Additional Source Comments The information contained in this document represents components of the legal health record. It is not the complete legal health record.[facility]
--- OUTSIDE RECORDS SUMMARY | 2024-10-27 12:17 | XMS_ITS | Encounter Summary ---
Author Organization [facility] Address [phone] [place] [address] Care Team Providers Care Complaint Supervisor Name Role Phone Gigi Mcwilliams DO Primary Care Provider [phone] Encounter Details Date Type Department Care Team (Late st Contact Info) Description 08/17/2017 Ancillary Orders Non-Invasive Cardiology 30 [place] [address] Monse Don PA-C [address] [place] [address] Chest pain on exertion Social History Tobacco [...] Description 12/15/2024 11:00 AM EDT Office Visit [facility] [address] [place] [address] Stacy Hendrickson MD 22 [facility], 1st [place] [address] 05/29/2025 12:00 PM EDT Office Visit [facility] [address] [place] [address] Tuan Cortez DO [address] [place] [address] [email or web address] documented as of this encounter Results * NC Stress Result for Nuclear Stress Test (NWH) (08/17/2017 10:52 AM EST) Max BP Systolic 182 mmHg [facility] Max BP Diastolic 64 mmHg [facility] Max HR 139 BPM [facility] Resting HR 67 BPM [facility] Resting BP Systolic 140 mmHg [facility] Resting BP Diastolic 64 mmHg [facility] Peak METS 7.7 METS [facility] Peak HR 136 BPM [facility] Anatomical Region Laterality Modality Heart Other 08/17/2017 10:0 0 AM EST 08/17/2017 10:52 AM EST Narrative 08/23/2017 12:04 PM EST Stress Test Result The heart rate changed from 67 bpm at rest to 136 bpm at peak stress. The blood pressure changed from 140/64 mmHg at rest. The patient's functional capacity is 7.7 METS. Pt exercised for minutes on a AMANDA protocol achieving 10.10 METS. Test terminated due to fatigue. Max heart rate 139 (83% MPHR). 1. No ischemic EKG changes with exercise. 2. Pt had 1/10 chest pressure with exercise that resolved spontaneously in early recovery. 3. Normal BP response to exercise. Normal functional capacity for age. 4. Few PVCs. Conclusion - no ischemic EKG changes but he did have mild chest pressure with exercise that resolved spontaneously in early recovery. Nuclear images pending and will be reported separately. Nevin Puckett NP with Dr Alfaro Monse Don PA-C CV NM CARDIAC documented in this encounter [...] documented as of this encounter Care Teams Complaint Supervisor Relationship Specialty Start Date End Date Gigi Mcwilliams DO [email or web address] PCP - General Internal Medicine 09/28/14 documented as of this encounter Additional Source Comments The information contained in this document represents components of the legal health record. It is not the complete legal health record.[facility]
--- OUTSIDE RECORDS SUMMARY | 2024-10-27 12:17 | XMS_ITS | Data Portability ---
[facility] Organization [facility] Address [address] [place] [address] Assessment Encounter Date Assessment Date Assessment LastModified by Organization Details LastModified Time 02/10/2023 02/10/2023 The patient denies little pleasure in activities they find enjoyable, feeling depressed, difficulties sleeping, feeling tired or having little energy, change in appetite, feeling guilty, overwhelmed or unmotivated. The patient denies suicidal ideation, thoughts of hurting themselves or others. Their mood is appropriate, they show good judgement and clear understanding of the conversation. They are orientated to time, place and person. They are not expressing any concerning thoughts or actions that would need further investigation and treatment for mental health. [email or web address] Not available 02/10/2023 11:03:51 12/15/2023 12/15/2023 Patient agreed and verbally consents to this audio and video Telehealth appt via a secure platform [email or web address] Not available 12/15/2023 11:18:30 Plan of Treatment Reminders Order Date Submit Date Provider Last Modified By Organization Details Last Modified Time Details Appointments None recorded. Lab CT + NG RNA, PCR, unspecifie d specimen 2022 023 [facility], [address], [place], [address], 3 13:18:14 RPR (rapid plasma reagin), serum 2022 023 [facility], [address], [place], [address], 3 11:35:25 HIV (1+2) Ab screen, serum 2022 023 [facility], [address] [place] [address], [address], 3 12:18:09 hepatitis panel (A+B+C), acute, serum 2022 023 [facility], [address] [place] [address], [address], 3 11:35:25 urinalysis complete, reflex culture 2022 023 [facility], [address] [place] [address], [address], 3 10:55:15 CBC w/ auto diff 2022 023 [facility], [address] [place] [address], [address], 3 11:21:42 iron + TIBC + ferritin, serum 2022 023 [facility], [address] [place] [address], [address], 3 10:55:14 PSA, serum or plasma 2022 023 [facility], [address] [place] [address], [address], 3 10:55:15 Referral urologist referral 2022 023 [facility], [address] [facility], [place], [address], 3 08:18:51 Procedures None recorded. Surgeries None recorded. Imaging XR, lumbosacra l spine, 2 or 3 view [address] [facility], [address] [place], [address], 12:59:50 Medication Orders cyclobenza marilyn 10 mg tablet [id number], [address] [place], [address], 3 11:19:53 meloxicam 15 mg tablet [id number], [address] [place], [address], 3 11:19:41 alfuzosin ER 10 mg tablet,ext ended release 24 hr 2022 023 LILIA [facility], [address] [place] [address], [address], [id number], 11:34:24 Patient TargetsNo targets recorded. Patient InstructionsNo instructions recorded. Reason for Referral Urologist Referral for Hemos permia blood in the semen Referring Physician: Charleen Larson, Internal Medicine, Encounter Date: 05/12/2023 Results Created Date Observation Date Name Description Value Unit Range Abnormal Flag Note LastModifiedBy Organization Detail LastModifiedTime 04/06/2004/06/2023 US, dennis y No observ ation record ed. [email or web address] [facility] [address] [facility] [address], [place], [address], 04/07/2023 09:48:18 05/06/2005/04/2023 MRI, knee, w/o contr ast No observ ation record ed. [email or web address] [facility] [address], [place], [address], 05/10/2023 10:27:16 11/24/19 24 11/24/2023 XR, chest , 2 view No observ ation record ed. [email or web address] [facility] [address], [place], [address], 11/24/2023 12:05:15 07/20/20 24 07/20/2024 XR, lumbo sacra l spine , 2 or 3 view No observ ation record ed. [facility] [address], [place], [address], 07/21/2024 08:56:23 10/06/19 25 10/05/2024 US, echoc ardio gram No observ ation record ed. [facility] [address], [place], [address], 10/06/2024 09:49:12 10/12/19 25 09/14/2024 suzanne r monit or No observ ation record ed. [email or web address] [facility] - [address], [place], [address], 10/13/2024 08:20:05 Result Notes None recorded. Problems Name Problem SNOMED Code Status Onset Date Resolution Date Notes Provider Name and Address Organization Details Recorded Time Rupture of quadrice ps tendon 6416802 Active 2021 SABINE MARTINEZ [address] [place], [address], [facility] 2 16:34:18 Abscess 814152049 Active 2021 SABINE MARTINEZ [address] [place], [address], [facility] 2 16:58:32 COVID-19 877742436 Active 2021 SABINE MARTINEZ [address] [place], [address], [facility] 2 09:56:19 Abscess of groin 14897736 Active 2021 SABINE MARTINEZ [address] [place], [address], [facility] 2 10:53:48 Pain of left knee joint 2231131183 53057 Active 2021 SABINE MARTINEZ [address] [place], [address], [facility] 2 11:16:40 Hyperlip idemia 86246336 Active 2021 [facility] 4 11:58:54 Bilatera l tinnitus 6387189560 102 Active 2021 SABINE MARTINEZ [address] [place], [address], [facility] 2 11:05:18 Tendinit is of left quadrice ps tendon 6774675016 9332678 Active 2022 SABINE MARTINEZ [address] [place], [address], [facility] 3 10:56:29 Mark hematuri a 460704016 Active 2022 SABINE MARTINEZ [address] [place], [address], [facility] 3 10:49:32 Pain of right shoulder joint 3914502451 3552953 Active 2022 SABINE MARTINEZ [address] [place], [address], [facility] 3 11:00:58 Hemosper dell 02214771 Active 2022 SABINE MARTINEZ [address] [place] [address], , [facility] 3 11:31:11 Low back pain 522875250 Active 2022 SABINE MARTINEZ [address] [place] [address], [address], [facility] 3 11:36:47 Cervical spondylo sis 970104532 Active 2022 SABINE MARTINEZ [address] [place], [address], [facility] 3 11:41:11 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 2022 SABINE MARTINEZ [address] [place], [address], [facility] 3 11:43:14 Acute bronchit is 75038371 Active 2023 SABINE MARTINEZ [address] [place], [address], [facility] 4 13:39:05 Sleep apnea 23081766 Active 2023 SABINE MARTINEZ [address] [place], [address], [facility] 4 13:42:43 Atrial fibrilla tion 80366579 Active 2023 SABINE MARTINEZ [address] [place], [address], [facility] 4 16:41:43 Lumbago with sciatica 000281685 Active 2023 SABINE MARTINEZ [address] [place], [address], [facility] 4 08:57:24 Essentia l hyperten coty 44466581 [facility] 2017 [facility] 4 11:58:55 Hypercho lesterol emia 04747140 Active 2017 Aicha davidson [facility] 4 11:58:54 Obesity 156638754 Active 2017 [facility] 4 11:58:54 Methicil brenden resistan t Staphylo coccus aureus infectio n 856588279 Active 2017 right forearm Not Available [facility] 1 05:51:09 Low back strain 513402853 Active 2017 bulg disk Not Available [facility] 1 05:51:09 Left ventricu lar hypertro phy 41959267 Active 2017 Aicha davidson [facility] 4 11:58:55 Benign prostati c hyperpla calvin 685524760 Active 2017 obstruct ion Not Available [facility] 1 05:51:09 Raphael winn 007948981 Active 2017 Not Available [facility] 1 05:51:09 Gilbert' s syndrome 63203336 Active 2017 Not Available [facility] 1 05:51:09 Impaired fasting glycemia 744438934 Completed 201711/28/2018 Ava Bray NP, S [address] [place], [address], [facility] 9 15:15:45 History of hernia repair 3681270474 9109 Active 2017 Not Available [facility] 1 05:51:09 Total replacem ent of hip Active 2017 Left Aicha davidson [facility] 4 11:58:54 Type 2 diabetes mellitus 72506275 Active 2017 Aicha davidson [facility] 4 11:58:54 Lyme disease 65105860 Active 2017 28 days doxy Not Available [facility] 1 05:51:09 Gonorrhe a 00187681 Active 2017 dx @ 12/08/16 chlamadi a neg Not Available [facility] 1 05:51:09 Notes:Some problems listed i n Documents: #[id number], #[id number] could not be added to this patient's chart. Please review these documents and add these problems to the patient's chart manually as needed. Problem Notes None recorded. Procedures Surgical History Date Name Laterality Status Provider Name and Address Organization Details Recorded Time 05/17/20 24 Colonoscopy completed Guilherme Mcwilliams [facility] 05/17/2024 12:15:07 04/07/20 22 I&D completed SABINE MARTINEZ [address] [place], [address], [facility] 04/07/2022 16:59:52 Imaging Results Imaging Date Name Status LastModified by Organization Details LastModified Time 04/06/2023 US, kidney completed [email or web address] [facility] [address] [facility] [address], [place], [address], 04/07/2023 09:48:18 05/04/2023 MRI, knee, w/o contrast completed [facility] [address] [place] [address], [place], [address], 05/10/2023 10:27:16 11/24/2023 XR, chest, 2 view completed [facility] [address] [place], [address], 11/24/2023 12:05:15 07/20/2024 XR, lumbosacral spine, 2 or [address] [facility] [address] [place], [address], 07/21/2024 08:56:23 10/05/2024 US, echocardiogram completed [facility] [address] [facility], [place], [address], 10/06/2024 09:49:12 09/14/2024 holter monitor completed [email or web address] [facility] [address], [address], 10/13/2024 08:20:05 Procedure Notes None recorded. Medical Equipment None Reported. Allergies Allergen ID Allergen Name Allergen Category Reaction Reaction Severity Criticality Documentation Date Start Date Code Code System Note Provider Name and Address Organization Details Recorded Time 1531 Lipitor medicatio n myalgias (muscle pain) Not available Not available 02/01/2018 70714 5 RxNorm Ana Maria davidson [facility] 8 08:17:07 Medications Name Sig Start Date Stop Date Status Note LastModified by Organization Details LastModified Time cyclobenzap rine 10 mg tablet TAKE 1 TABLET BY MOUTH THREE TIMES A DAY NEEDED FOR 14 DAYS 08/13 completed Not Available Not Available Not Available amoxicillin 500 mg capsule 02/05 completed Not Available Not Available Not Available prednisone 10 mg tablet take 5 tabs x 2 daystake 4 tabs x 2 daystake 3 tabs x 2 daystake 2 tabs x 2 daystake 1 tab x 2 days 08/03 completed Not Available Not Available Not Available azithromyci n 250 mg tablet TAKE 2 TABLETS BY MOUTH TODAY, THEN TAKE 1 TABLET DAILY FOR 4 DAYS DIRECTED active Not Available Not Available No t Available acetazolami de 125 mg tablet TAKE 1 TABLET BY MOUTH TWICE A DAY STARTING 24 HRS BEFORE OR ON DAY OF ASCENT active Not Available Not Available No t Available metoprolol succinate ER 50 mg tablet,exte nded release 24 hr TAKE 1 TABLET BY MOUTH EVERY DAY active Not Available Not Available No t Available meloxicam 15 mg tablet TAKE 1 TABLET BY MOUTH EVERY DAY WITH MEALS FOR 14 DAYS 08/13 completed Not Available Not Available Not Available Medrol (Jude) 4 mg tablets in a dose pack Take 1 dose pk by oral route. 12/14 completed Not Available Not Available Not Available lovastatin 40 mg tablet TAKE 1 TABLET BY MOUTH DAILY active Not Available Not Available No t Available glipizide ER 5 mg tablet, extended release 24 hr TAKE 1 TABLET BY MOUTH DAILY 10/28 completed Not Available Not Available Not Available clobetasol 0.05 % topical cream APPLY THIN COAT TO AFFECTED AREA TWICE A DAY 11/05 completed Not Available Not Available Not Available permethrin 5 % topical cream 08/08 completed Not Available Not Available Not Available sulfamethox azole 800 mg-trimetho prim 160 mg tablet Take 1 tablet every 12 hours by oral route for 7 days. 08/18 completed Not Available Not Available Not Available aspirin 81 mg tablet,leah yed release TAKE 1 TABLET (81 MG TOTAL) BY MOUTH EVERY MORNING & EVERY EVENING FOR 28 DAYS. 08/13 completed Not Available Not Available Not Available losartan 100 mg-hydrochl orothiazide 25 mg tablet TAKE 1 TABLET BY MOUTH DAILY active Not Available Not Available No t Available oxycodone-a cetaminophe n 5 mg-325 mg tablet Take 1 tablet every 6 hours by oral route for 7 days. 08/03 completed Not Available Not Available Not Available tamsulosin 0.4 mg capsule TAKE 2 CAPSULES DAILY 08/13 completed Not Available Not Available Not Available amlodipine 10 mg tablet TAKE 1 TABLET BY MOUTH DAILY active Not Available Not Available No t Available cephalexin 500 mg capsule TAKE 1 CAPSULE BY MOUTH EVERY 6 HOURS FOR 10 DAYS 05/19 completed Not Available Not Available Not Available metformin 1,000 mg tablet Take 1 tablet twice a day by oral route. 07/17 completed Not Available Not Available Not Available clonazepam 2 mg tablet 02/01 completed Not Available Not Available Not Available lovastatin 20 mg tablet TAKE 1 TABLET DAILY 08/03 completed Not Available Not Available Not Available betamethaso ne dipropionat e 0.05 % topical ointment 08/08 completed Not Available Not Available Not Available metformin ER 500 mg tablet,exte nded release 24 hr TAKE 2 TABLETS BY MOUTH TWICE DAILY 2023 active Not Available Not Available Not Avai lable doxycycline hyclate 100 mg tablet Take 2 tablets every day by oral route for 7 days. 05/29 completed Not Available Not Available Not Available naproxen 500 mg tablet 08/08 completed Not Available Not Available Not Available oxycodone 5 mg tablet TAKE 1 TABLET BY MOUTH EVERY 6 HOURS NEEDED FOR PAIN. 08/13 completed Not Available Not Available Not Available alfuzosin ER 10 mg tablet,exte nded release 24 hr TAKE 1 TABLET BY MOUTH DAILY 2023 active Not Available Not Available Not Avai lable metformin ER 1,000 mg tablet,exte nded release 24hr (osmotic) Take 1 tablet twice a day by oral route. 07/17 completed Not Available Not Available Not Available doxycycline hyclate 100 mg tablet,leah yed release 02/01 completed Not Available Not Available Not Available Fish Oil 2400 qd active Not Available Not Brenda ilable Not Available apple cider vinegar qd active Not Available Not Available Not Available Januvia 100 mg tablet TAKE 1 TABLET DAILY 02/05 completed Not Available Not Available Not Available Lantus Solostar U-100 Insulin 100 unit/mL (3 mL) subcutaneou s pen INJECT 60 UNITS UNDER THE SKIN DAILY active Not Available Not Available No t Available GaviLyte-G 236 gram-22.74 gram-6.74 gram-5.86 gram oral solution active Not Available Not Available Not Available Senexon-S 8.6 mg-50 mg tablet TAKE 1 TABLET BY MOUTH EVERY MORNING & EVERY EVENING WHILE TAKING NARCOTICS FOR 30 DAYS. active Not Available Not Available No t Available Eliquis 5 mg tablet TAKE 1 TABLET BY MOUTH TWICE A DAY active Not Available Not Available No t Available Trulicity 1.5 mg/0.5 mL subcutaneou s pen injector INJECT 0.5 ML (1.5 MG TOTAL) UNDER THE SKIN EVERY 7 DAYS. 10/28 completed Not Available Not Available Not Available Trulicity 0.75 mg/0.5 mL subcutaneou s pen injector INJECT 0.5 ML UNDER THE SKIN EVERY WEEK 11/07 completed Not Available Not Available Not Available Soliqua 100/33 100 unit-33 mcg/mL subcutaneou s insulin pen INJECT 35 UNITS UNDER THE SKIN DAILY. 11/17 completed Not Available Not Available Not Available BD Ultra-Fine Micro Pen Needle 32 gauge x 1/4 INJECT 1 EACH UNDER THE SKIN DAILY. ALSO USE FOR ONCE WEEKLY OZEMPIC INJECTION . E11.9 active Not Available Not Available No t Available Bydureon BCise 2 mg/0.85 mL subcutaneou s auto-inject or INJECT 2 MG UNDER THE SKIN EVERY 7 DAYS. 11/17 completed Not Available Not Available Not Available BD Lisette 2nd Gen Pen Needle 32 gauge x 5/32 INJECT 1 EACH UNDER THE SKIN DAILY. ALSO USE FOR ONCE WEEKLY OZEMPIC INJECTION . E11.9 active Not Available Not Available No t Available FreeStyle Mitchel 2 Sensor kit 1 EACH BY MISCELLAN EOUS ROUTE EVERY 14 (FOURTEEN ) DAYS. active Not Available Not Available No t Available Ozempic 1 mg/dose (4 mg/3 mL) subcutaneou s pen injector INJECT 1 MG SC EVERY WEEK active Not Available Not Available No t Available Mounjaro 7.5 mg/0.5 mL subcutaneou s pen injector active Not Available Not Available Not Available Ozempic 0.25 mg or 0.5 mg (2 mg/3 mL) subcutaneou s pen injector 05/12 completed Not Available Not Available Not Available FreeStyle Mitchel 3 Plus Sensor device APPLY DIRECTED EVERY 2 WEEKS E11.9 active Not Available Not Available No t Available Vitals Date Recorded Body height Body mass index (BMI) Body weight Heart rate Oxygen saturation Oxygen saturation in Arterial blood by Pulse oximetry Systolic blood pressure Diastolic blood pressure Provider Name and Address Organization Details Last Updated DateTime 3 199.39 cm 40.5 kg/m2 189980. 29 g 60.99 /min 96 % 96 % 140 mm[Hg] 68 mm[Hg] Breanna Alegria [facility] 3 10:35:23 Date Recorded Body height Body mass index (BMI) Body weight Heart rate Oxygen saturation Oxygen saturation in Arterial blood by Pulse oximetry Systolic blood pressure Diastolic blood pressure Provider Name and Address Organization Details Last Updated DateTime 3 199.39 cm 39.9 kg/m2 099010. 33 g 76 /min 97 % 97 % 142 mm[Hg] 78 mm[Hg] SABINE MARTINEZ [address] [place] [address], [address] [place] [address] Internal Medicine 3 11:15:22 Date Recorded Body height Body mass index (BMI) Body weight Heart rate Oxygen saturation Oxygen saturation in Arterial blood by Pulse oximetry Systolic blood pressure Diastolic blood pressure Provider Name and Address Organization Details Last Updated DateTime 3 199.39 cm 40.3 kg/m2 576938. 11 g 67 /min 99 % 99 % 143 mm[Hg] 76 mm[Hg] Pao Khan [facility] 3 11:21:30 Date Recorded Body height Body mass index (BMI) Body weight Heart rate Oxygen saturation Oxygen saturation in Arterial blood by Pulse oximetry Systolic blood pressure Diastolic blood pressure Provider Name and Address Organization Details Last Updated DateTime 4 199.39 cm 40 kg/m2 288901. 56 g 74 /min 96 % 96 % 138 mm[Hg] 82 mm[Hg] Aicha Arguelles [facility] 4 11:51:58 Social History Question Answer Notes LastModified by Organizat ion Details LastModified Time Tobacco Smoking Status Never Smoker Not Available [facility] 07/02/2020 03:36:24 What Was The Date Of Your Most Recent Tobacco Screening? 07/19/2024 [email or web address] Information not available 07/19/2024 Do You Or Have You Ever Used Any Other Forms Of Tobacco Or Nicotine? No [email or web address] Information not available 11/17/2022 Sex: Unknown Functional Status None recorded. Mental Status None recorded. Family History Nothing Reported. Medical History Condition Response Coronary Artery Disease N Other N Gout N Kidney Stones N Blood Diseases N Breast Cancer N Blood Transfusion N Depression N COPD N Lung Disease N Defects or Inherited Disease N Anxiety Disorder N Muscle, Joint, or Bone Problems N Obesity N Vision or Eye Problems N Arthritis N Polyps N Infertility N Mental Disorder N Cancer N Varicosities N Stroke N Endometriosis N Bladder or Kidney Problems N High Cholesterol N Liver Disease N Headaches N Fibromyalgia N Kidney Disease N Allergies/Hayfever N Heart Problems N Hospitalizations N Thyroid Problems N GI Problems N Skin Problems N Eating Disorder N Anemia N MRSA exposure N Constipation N Mental Illness N Ovarian Cancer N Diabetes N Seizures/Epilepsy N Tuberculosis N Congestive Heart Failure (CHF) N Eczema N Diverticulitis N Abuse/Domestic Violence N Asthma N Reflux/GERD N Hepatitis N Heart Disease N Pulmonary Embolism N Hypertension N Chicken Pox N Autism Spectrum Disorder (ASD) N Osteoporosis N Immunizations Vaccine Type Date Status Note Provider Nam e and Address Organization Details Recorded Time COVID-19, mRNA, LNP-S, PF, 30 mcg/0.3 mL dose 11/17/2020 lisa davidson [facility] 05/15/2022 14:43:22 COVID-19, mRNA, LNP-S, PF, 30 mcg/0.3 mL dose 12/08/2020 lisa davidson [facility] 05/15/2022 14:43:30 COVID-19, mRNA, LNP-S, PF, 100 mcg/0.5mL dose or 50 mcg/0.25mL dose 08/06/2021 lisa davidson [facility] 05/15/2022 14:43:40 Past Encounters Encounter ID Performer Location Encounter Start Date Encounter Closed Date Diagnosis/Indication Diagnosis SNOMED-CT Code Diagnosis ICD10 Code Diagnosis Note [id number] DARSHAN [facility] [address] [facility],[place] [address] 02/01/2018 10:05:20 02/01/2018 11:34:46 Type 2 diabetes mellitus 45632584 E11.65 diet and exercise discussed a1c almost at goal on metformin + januvia states he will do eye exam Active or passive immunization 470195208 Z23 Essential hypertension 93897166 I10 on losart/hct + amlodipine Hypercholesterolemia 136 07544 E78.00 on lovastatin , near goal. improve diet to maintain Effects of high altitude 21634450 T70.20XA [id number] [facility] [address] [facility],[place] [address] 05/04/2018 10:11:41 05/04/2018 11:20:29 Type 2 diabetes mellitus 35402844 E11.65 diet and exercise discussed on metformin + januvia states he will do eye exam will check aic Essential hypertension 83253529 I10 on losart/hct + amlodipine good control Hypercholesterolemia 136 75807 E78.00 on lovastatin , near goal. improve diet to maintain Eczema 27622334 L30.9 vs psoriasis Allergic rhinitis 889622 04 J30.9 sore throat/itc hy throat likely related to PND, will take claritin and f/u if persistent [id number] [facility] [address] [facility],[place] [address] 06/13/2018 10:13:35 06/13/2018 11:06:10 Wrist joint pain 891219292 M25.539 unclear from history/cp e underlying etiology most likely tendinosis will continue conservati ve treatment as well as trial of pred Psoriasis 3881849 L40.9 more likely than eczema , though it has improved with use of clobetasol pred for above will likely help with this rash, we will continue to monitor Type 2 desmond betes mellitus 93940678 E11.65 will monitor sugars with pred above [id number] [facility] [address] [facility],[place] [address] 08/03/2018 10:49:40 08/03/2018 12:23:26 Type 2 diabetes mellitus 65047172 E11.65 A1c has worsened poor diet and exercise though on metformin ER 500 BID + januvia 100 mg qd would like to try to do lifestyle changes will consider additional meds at fu if needed Essential hypertension 94777128 I10 on losart/hct + amlodipine good control Mixed hyperlipidemia 267 421893 E78.2 increased based on his labs in april Hypercholesterolemia 136 79451 E78.00 on lovastatin , near goal. improve diet to maintain Eczema 02004575 L30.9 vs psoriasis recommend derm consult Body mass index 40+ - severely obese 936352870 Z68.41 healthy diet and [place] [id number] November DARSHAN [facility] [address] [facility] [address] 10/28/2018 09:34:08 10/28/2018 11:02:12 Type 2 diabetes mellitus 08623152 E11.65 needs to get a1c done Essential hypertension 81888588 I10 mildly elevated today will monitor in setting of low bp reading Mixed hyperlipidemia 267 744100 E78.2 increased based on his labs in april, due today Hypercholesterolemia 136 07566 E78.00 on lovastatin , near goal. improve diet to maintain Eczema 92850597 L30.9 vs psoriasis recommend derm consult once again Body mass index 40+ - severely obese 141972078 Z68.41 healthy diet and exercise weight loss recommende d Pain in left knee 667232 7806 19077 M25.562 pain consistent with arthritis will get imaging and conservati ve tx. if pain persists will try PT or ortho rest/ice/b race/nsaid s Diplopia 34753377 H53.2 has seen optometris t with corrective glasses, but would like to check imaging of brain for vascular or mass effects Benign pro static hyperplasia 716344642 N40.0 dx'd by uro in past would like to restart flomax 88777 Ava Bray, LESLIE, [facility] [address] [facility] [address] 11/28/2018 14:55:27 11/29/2018 14:36:47 Computed tomography of brain abnormal 563906594 R93.0 Type 2 desmond betes mellitus 91808419 E11.9 f/u 1 month Obesity 519761269 E66.9 Essential hypertension 73834272 I10 Hypercholesterolemia 136 15668 E78.00 Osteoarthr itis of knee 650946117 M17.0 discussed benefits weight loss 32912 [facility] Internal [facility] [address] [facility], [place] [address] 02/10/2019 11:16:27 02/10/2019 13:59:22 Type 2 diabetes mellitus 85503711 E11.65 a1c 8.2, down from 10.3 still need to work on diet Essential hypertension 26064972 I10 mildly elevated today will monitor in setting of low bp reading Mixed hyperlipidemia 267 070855 E78.2 will check for next visit on lovastatin , near goal. improve diet to maintain Eczema 36503782 L30.9 vs psoriasis Body mass index 40+ - severely obese 060856714 Z68.41 healthy diet and exercise weight loss recommende d Diplopia 04364574 H53.2 has f/u with neuro had already seen opth in the past Benign pro static hyperplasia 780377455 N40.0 seen urology 26515 [facility] [address] [facility], [place] [address] 03/06/2019 11:43:30 03/06/2019 12:36:23 Cervical lymphadenopathy 852535645 R59.0 no enlargemen t palpable today reassuranc e Essential hypertension 75040908 I10 stable 35875 [facility] [address] [facility], [facility] [place] [address] 05/10/2019 11:21:24 05/10/2019 12:23:38 Hypercholesterolemia 38837252 E78.00 on lovastatin , near goal. improve diet to maintain Obesity 835762609 E66.9 Type 2 desmond betes mellitus 37682444 E11.65 a1c 8.1, down from 10.3 still working on diet Essential hypertension 94534055 I10 stable 77230 [facility] [address] [facility] [address], [place] [address] 05/10/2019 11:33:16 05/10/2019 11:51:50 Hypercholesterolemia 66863333 E78.00 on lovastatin , near goal. improve diet to maintain Type 2 desmond betes mellitus 46679906 E11.65 a1c 8.1, down from 10.3 still working on diet Essential hypertension 88349658 I10 stable 63531 November DARSHAN [facility] Internal Medicine [address] [facility] [address] [address] 08/08/2019 11:04:01 08/08/2019 11:53:15 Mixed hyperlipidemia 336921711 E78.2 will check for next visit on lovastatin , near goal. improve diet to maintain Hypercholesterolemia 136 83212 E78.00 on lovastatin , near goal. improve diet to maintain Type 2 desmond betes mellitus 39883898 E11.65 a1c 8.1 in sept consider glipizide vs trulicity pend a1c control Essential hypertension 11821094 I10 stable Benign pro static hyperplasia 935851780 N40.0 seen urology 59781 November [facility] [address] [facility] [address],[place] [address] 11/07/2019 11:13:10 11/07/2019 12:06:36 Type 2 diabetes mellitus 37195986 E11.65 a1c 9.8 in jul will see a1c now that he has started trulicity Essential hypertension 57657559 I10 not well controlled would like to monitor BP at home and will report if BP remains above 140/80 likely will add metoprolol if still elevated Body mass index 40+ - severely obese 603641008 Z68.41 healthy diet and exercise weight loss recommende d Chest pain on exertion 91567041 R07.89 99754 [facility]ARTINE[facility] [address] [facility],[place] [address] 02/06/2020 11:14:08 02/06/2020 13:52:33 Type 2 diabetes mellitus 73041476 E11.9 doing well on diet and exercise a1c is down Essential hypertension 03782398 I10 stable, BP is leveling out gets lower numbers at home 66486 SABINE MARTINEZ [facility] [address] [facility] [address] [address] 06/04/2020 11:17:09 06/04/2020 11:40:54 Pain in left knee 2576359968 80476 M25.562 will set up for ortho eval Type 2 desmond betes mellitus 28093890 E11.9 had a problem with metformin dosage had to come down on it due to tolerabili ty, A1c therefore came up will work on dosing and med adjustment 56703 SABINE MARTINEZ [facility] [address] [facility] [address],[place] [address] 11/05/2020 09:52:49 11/05/2020 10:33:27 Type 2 diabetes mellitus 05724196 E11.9 the patient will have repeat bw done today and will fu with results Hypercholesterolemia 136 20983 E78.00 will recheck BW Essential hypertension 07701112 I10 stable, BP is leveling out, much lower than last time gets lower numbers at home Atypical chest pain 1025 99288 R07.89 [facility], needs to have angiogram done Benign pro static hyperplasia 798496219 N40.0 will recheck his PSA 26158 [facility]INE MARTINEZ [facility] [address] [facility] [address] [address] 02/05/2021 11:16:06 02/05/2021 11:59:40 Hypercholesterolemia 86873917 E78.00 will recheck BW Type 2 desmond betes mellitus 68894198 E11.65 A1c is better, also has endo fu Body mass index 40+ - severely obese 806494955 Z68.41 discussed continuing working on diet and exercise Essential hypertension 68788126 I10 stable, BP is leveling out, much lower than last time gets lower numbers at home 90958 S[facility]INE MARTINEZ [facility] [address] [facility] [address] [address] 05/20/2021 08:07:14 05/20/2021 16:36:08 Essential hypertension 15436733 I10 stablelow numbers at home which is good Type 2 desmond betes mellitus 42022553 E11.65 A1c is better, also has endo fu for medication adjustment 23232 S[facility]INE MARTINEZ [facility] [address] [facility] [address],[place] [address] 10/28/2021 10:26:10 10/29/2021 10:15:55 Hypercholesterolemia 11465378 E78.2 will recheck BW Type 2 desmond betes mellitus 23698271 E11.65 A1c is better, also has endo fu for medication adjustment Essential hypertension 17306548 I10 stablelow numbers at home which is good Body mass index 40+ - severely obese 549631895 Z68.41 discussed continuing working on diet and exercise Benign pro static hyperplasia 149590813 N40.0 discussed switching to doxazosin from tamsulosin , will hold that for now 82035 SABINE MARTINEZ [facility] [address] [facility] [address],[place] [address] 04/07/2022 16:21:32 04/07/2022 17:04:22 Rupture of quadriceps tendon 2415225 S76.192A will call me with info for ortho who he want to see Abscess 901559118 L02.21 2 will start on keflex 26464 SABINE MARTINEZ [facility] [address] [facility] [address] [address] 05/19/2022 10:26:00 05/19/2022 11:02:51 Hypercholesterolemia 48466183 E78.2 will recheck BW Type 2 desmond betes mellitus 72040377 E11.65 A1c is better, also has endo f/u for medication adjustment Essential hypertension 84129929 I10 stablelow numbers at home which is good Abscess of groin 4188159 9 L02.214 will f/u patient on Wednesday 88573 [facility]INE MARTINEZ [facility] [address] [facility] [address],[place] [address] 05/29/2022 10:57:03 05/29/2022 15:22:05 Abscess 865413936 L02.214 stable on bactrim will continue Pain of le ft knee joint 7953651699 33457 M25.562 due to tearing of quadriceps Rupture of quadriceps tendon 2971439 S76.192A will call hip surgeon for knee referraldi d give him info on [facility] as well 24587 SABINE MARTINEZ [facility] [address] [facility] [address],[place] [address] 08/18/2022 10:31:02 08/18/2022 11:24:51 Type 2 diabetes mellitus 35588599 E11.65 A1c is better, also has endo f/u for medication adjustment Essential hypertension 72316471 I10 stablelow numbers at home which is good Active or passive immunization 837064641 Z23 patient advised he is due for tdap, flu shot & pneu 23 Depression screening 171 127148 Z13.31 stable Rupture of quadriceps tendon 6070972 S76.192A will be seeing them in Augustdis cussing options for what they can do to fix it Hyperlipidemia 88412937 E78.2 will fu with recheck cholestero llast LDL was excellentw ill see if changing the statin is necessary Bilateral tinnitus 14121 18718 102 H93.13 improvedsu ggested ENT f/u for evaluation of his inner ear and auditory nerve 62376 SABINE MARTINEZ [facility] [address] [facility],[place] [address] 11/17/2022 10:29:48 11/17/2022 14:49:05 Type 2 diabetes mellitus 49950382 E11.65 A1c is better, also has endo f/u for medication adjustment Essential hypertension 83259561 I10 stablelow numbers at home which is good Bilateral tinnitus 51230 69457 102 H93.13 improvedsu ggested ENT f/u for evaluation of his inner ear and auditory nerve if wantedwill try flonase and lipoflavon oid Body mass index 40+ - severely obese 513637263 Z68.41 discussed continuing working on diet and exerciseoz empic is helping Pain of le ft knee joint 2089987669 93301 M25.562 due to tearing of quadriceps Tendinitis of left quadriceps tendon 7134438734 5092532 M76.892 will send in referraldi dn't have any luck with his surgeon in [place] getting back to him 47160 SABINE MARTINEZ [facility] [address] [facility] [address],[place] [address] 02/10/2023 10:25:54 02/10/2023 11:11:30 Benign prostatic hyperplasia 702098305 N40.0 discussed switching to doxazosin from tamsulosin , will hold that for now stilldiscu ssed finasterid e as an alt since it works on conversion of his testostero ne to reduce prostate over time Mark hematuria 16297784 5 R31.0 agreed to recheck levels and a CBC and iron to determine if he has more significan t bleeding Pain of ri ght shoulder joint 5976870725 4419485 M25.511 ? infraspina tus tear, tendinitis 98292 SABINE MARTINEZ [facility] [address] [facility] [address] [address] 05/12/2023 11:09:03 05/12/2023 12:14:20 Essential hypertension 38306749 I10 stablelow numbers at home which is good Hypercholesterolemia 136 56937 E78.2 will recheck BW Type 2 desmond betes mellitus 87165696 E11.65 A1c is better, also has endo f/u for medication adjustment Benign pro static hyperplasia 969261331 N40.0 discussed switching to doxazosin from tamsulosin , will hold that for now stilldiscu ssed finasterid e as an alt since it works on conversion of his testostero ne to reduce prostate over time Hemospermia 79390705 R36 .1 indication s for possible STI after thorough discussion with patient Low back pain 624291173 M54.59 will set up with msk relaxer and anti-infla mmatory Cervical spondylosis 387 454390 M47.812 discussed 810907 SABINE MARTINEZ [facility] [address] [facility],[place] [address] 08/13/2023 11:14:19 08/16/2023 08:35:26 Type 2 diabetes mellitus 30583243 E11.65 improving, his scores are much betterfoll ows with endo 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 Left Kneeremove d 653608 SABINE MARTINEZ [facility] [address] [facility] [address] [address] 12/15/2023 08:39:41 12/15/2023 13:04:03 Type 2 diabetes mellitus 65781138 E11.65 doing okayhis A1c is up due to recent surgery, has been quite bored Body mass index 40+ - severely obese 301956024 Z68.41 working on diet and exercise, recently very sedentary due to surgery [id number] SABINE MARTINEZ [facility] [address] [facility] [address],[place] [address] 07/19/2024 11:46:51 07/19/2024 12:26:24 Essential hypertension 00660123 I10 stable Type 2 desmond paige mellitus 87039505 E11.65 doing much better Atrial fibrillation 4943 6004 I48.0 stable today currentlyr ecommended possibly getting a watch to monitor his rhythmhas fu with cardiology Low back pain 378950472 M54.59 recommende d fu imaging, r/o disc bulge vs msk spasm Health Concerns Section Related Observation LastModified by Organization Detai ls LastModified Time None Recorded Concern Status LastModified by Organization Details LastModified Time None Recorded Advance Directives Directive None Recorded Payers Encounter Date Sequence Insurance Name Policy Number Policy Del Valle Covered Member ID Del Valle Member ID Guarantor Name 02/10/2023 1 ED [facility] [id number] Coleman P P [place]alo [id number] Alexa P [place]alo 05/12/2023 1 ED [facility] [id number] Coleman P P [place] [id number] Alexa P [place] 08/13/2023 1 ED [facility] [id number] Coleman P P [place] [id number] Alexa P [place] 12/15/2023 1 ED [facility] [id number] Coleman P P [place] [id number] Alexa P [place] 07/19/2024 1 ED [facility] [id number] Coleman P P [place] [id number] Alexa P [place] Notes Date Note Type Note Provider Name a nd Address Organization Details Recorded Time 3 text/html f/u 3 mos T2DM: seeing juan Lanier [facility] 2 reader is working really well for him to monitor his sugarsthe ozempic is working really well, currently left quadriceps tendon tear: his insurance won't [id number] his insurance to see who they do cover out in [place], patient will call me with dept information the patient is having right shoulder pain; possible rotators cuff tear vs tendinitisright hand dominantno loss of strength; ROM intact from baseline (more likely given symptoms it is more likely related to his infraspinatus)the patient has a long h/x of sports that caused stress on his shouldersrecently was doing the patient reports that he had blood in his semen and in his urinethe patient reports that it came and went, no other symptoms his nocturia has improved with his sugar controldiscussed side effects of the tamsulosinwill think about switching anything SABINE MARTINEZ [address] [place], [address], [facility] 02/10/2023 11:07:59 3 text/html f/u 3 mos HTN: today in the office the patient BP is 142/78 (monitored by endo and our office)the patient is doing well on the BP medication with no side effects and no adjustment of their medications needed today at the appointmentwell-contro lled on medicationdenies chest pain, sob, ankle swelling, orthopnea, palpitations HLD: stable from endo T2DM: increased to 1 MG continues with blood in semen, work up thus far has been unremarkablewill f/u with uro referral and STI testing as he has indicated for possible STI exposure will switch from tamsulosin with alfuzosin ER to see if it improves symptoms SABINE MARTINEZ [address] [place], [address], [facility] 05/12/2023 12:07:30 3 text/html 3 mos f/u the patient has an appt with another MRI next Wednesday for evaluation to make sure he didn't tear anything post op since he fellhasn't been using his immobilizer then entire time since it significantly reduces his ability to moveuses it when he is at home the patient has some swelling in the knee (L)the patient pain level has much improvedfull tumor removed from the area movement and ROM is good post-op has had a f/u with the surgeon since to remove stitches his sugar levels has been much improvedthe ozempic is working well for the patient has fu with SABINE Orozco [address] [place], [address], [facility] 08/13/2023 11:47:04 4 text/html T2DM The patient is participating in this appointment via telemedicine communication with a phone call/video calling service (Doxy)The patient consents to use of these platforms in place of an in-person appointment due to either sick symptoms the patient is presenting with or current office closure due to COVID exposure in order to keep our office staff and patients safe Patient presents today for follow-up for Type 2 Diabetes Recent lab showed an A1c of 8.4% The patient has been compliant with medications and following up with Dr. HendricksonThe complications patient is experiencing are some constipation, from the ozempic, otherwise doing wellThe patient has current concerns about related to their diabetes diagnosis are increased levels, but working with endo, now much more activeThe patient has been compliant with lifestyle changes including dietary changes, exercise and healthy habits Discussion about feet reveals no changesDiscussion about eyes reveal no changes, waiting for his eye appt, booked 6 mos out Treatment plan going forward is to continue current meds, fu with Dr. Madhavi LARSON, SABINE [address] [place] [address], [address], [facility] 12/15/2023 11:29:21 4 text/html ER f/u patient presented to ER with acute onset, severe dizziness and chest pressureEKG noted patient was in atrial fibrillation, new diagnosispatient self terminated the rhythmwas started on metoprolol and eliquis prior to d/c recommended f/u with PCP and a cardio will most likely need f/u US echo as well as a holter monitor to evaluate how often he goes in and out of a fib currently sees endo for his diabetes does have known h/x of sleep apnea which can contribute to increased risk for cardiovascular events [id number] Score of 2, recommended anticoagulation therapy based on current guidelines: Anticoagulation should be started in patients with a JOVON? D S? - VASc score of ?2 if male or ?3 if femaleAspirin monotherapy is not supported by current evidence. TODAY: the patient reports these episodes for a few weeksthe patient reports that he called the ambulance, EKG showed A Fib and was confirmed at the hospital the patient reports that it was in and out, no a sustained rhythmthe patient has a f/u with Dr Cortez on 08/07/24 for a fu and evaluation the patient is doing well on the medications currently doing really well on the mounjaro, now will be stopping the insulin incrementally otherwise feels really good does note that his low back has been bothering him since bending over tying his shoehappened 3 weeks agofeels it on the right side, no radiation the concern is msk strain vs a new disc bulgerecommended XR to check the low back r/o more severe problem SABINE MARTINEZ [address] [place] [address], [place], [address], [facility] 07/19/2024 12:22:17
[2024-10-27 15:11] LABS: Alanine Aminotransferase 40 U/L (0-40); Albumin Level 4.1 g/dL (3.5-5.0); Alkaline Phosphatase 83 U/L (39-117); Anion Gap 11 (12-20); Aspartate Amino Transferase 24 U/L (5-37); Bilirubin Total 2.1 mg/dL (0.0-1.0); Blood Urea Nitrogen 15 mg/dL (9-16); Calcium 9.1 mg/dL (8.4-10.2); Carbon Dioxide 25 mmol/L (22-29); Chloride 109 mmol/L (96-108); Cholesterol 136 mg/dL (<200); Estimated Glomerular Filt Rate > 60; Glucose Random 170 mg/dL (60-115); HDL Cholesterol 30 mg/dL (>40); LDL Cholesterol Calculated 84 mg/dL (<100); Potassium 3.5 mmol/L (3.3-5.1); Sodium 141 mmol/L (135-145); Total Protein 7.3 g/dL (6.5-8.0); Triglycerides 112 mg/dL (<150)
== END 2024-10-27 10:44 | disposition home or self-care (01) ==
LOC: HO.MANLDS 10:43
PROVIDERS: Visit Provider Internal Medicine
DX: E78.5 Hyperlipidemia, unspecified (principal)
CPT/HCPCS: 36415; 80053; 80061

== ENCOUNTER 2025-05-08 10:49 | Outpatient (REF) | payer OTHER, SELFPAY ==
--- OUTSIDE RECORDS SUMMARY | 2025-05-08 13:03 | XMS_ITS | Clinical Summary ---
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 Active lovastatin (MEVACOR) 40 MG tablet lovastatin 40 mg tablet Active losartan-hydroC HLOROthiazide (HYZAAR) 100-25 mg per tablet losartan 100 mg-hydrochlor othiazide 25 mg tablet Active metFORMIN (GLUCOPHAGE-XR) 500 MG 24 hr tablet Take 1,000 mg by mouth daily with breakfast. Active alfuzosin (UROXATRAL) 10 mg 24 hr tablet Take 10 mg by mouth daily. Active BD TERESA 2ND GEN PEN NEEDLE 32 gauge x NdleIndications :Type 2 diabetes mellitus without complication, without long-term current use of insulin INJECT 1 EACH UNDER THE SKIN DAILY. ALSO USE FOR ONCE WEEKLY OZEMPIC INJECTION. E11.9 100 each 3 10/21/19 24 Active omega-3 fatty acids-fish oil 340-1,000 mg Cap Take 1 capsule by mouth daily. Active APPLE CIDER VINEGAR ORAL Take by mouth. Active [id number]-[id number]-y [id number] [phone] mg Tab Take by mouth. Active LANTUS SOLOSTAR U-100 INSULIN 100 unit/mL (3 mL) InPn injection penIndications: Type 2 diabetes mellitus without complication, without long-term current use of insulin INJECT 60 UNITS UNDER THE SKIN DAILY 30 mL 11 12/26/19 25 Active MOUNJARO 10 mg/0.5 mL PnIj subcutaneous penIndications: Type 2 diabetes mellitus without complication, without long-term current use of insulin,Class 3 severe obesity with serious comorbidity and body mass index (BMI) of 40.0 to 44.9 in adult, unspecified obesity type Inject 0.5 mL (10 mg total) under the skin every 7 days. 6 mL 03/30/20 25 Active FREESTYLE MITCHEL 3 PLUS SENSOR DeviIndications :Type 2 diabetes mellitus without complication, without long-term current use of insulin Apply as directed every 15 days 6 each 3 04/02/20 25 Active XARELTO 20 mg Tab Take 20 mg by mouth daily. 03/09/20 25 Active metoprolol succinate (TOPROL-XL) 50 MG 24 hr tablet Take 0.5 tablets (25 mg total) by mouth daily. 180 tablet 3 05/01/20 25 026 Active metoprolol succinate (TOPROL-XL) 50 MG 24 hr tablet Take 2 tablets (100 mg total) by mouth daily. 180 tablet 3 08/22/20 24 025 Discontinued ELIQUIS 5 mg tabletIndicatio ns:Medication refill TAKE 1 TABLET BY MOUTH TWICE A DAY 180 tablet 11/09/19 25 025 Discontinued(N o longer taking) Active Problems Problem Noted Date Diagnosed Date Paroxysmal atrial fibrillation 08/07/2024 Assessment & Plan (05/01/2025 5:16 PM EDT): A-fib diagnosed 05/2024. He is getting some nonspecific symptoms of dizziness/diaphoresis/chest pain but no obvious palpitation or tachycardic complaint. He continues to be found in sinus rhythm. He remains adequately anticoagulated on Xarelto 20 mg daily which he is taking without bleeding complaint, recent transition from Eliquis. He continues with metoprolol 50 mg which she would like to reduce to 25 mg due to his recent symptoms which is agreeable but I have asked him to update a 1 week monitor after this change. Continue trigger avoidance. Assessment & Plan (10/10/2024 2:15 PM EST): Minimal symptomatic recurrences of this not really bothersome Discussed consideration for ablation, not interested at this time. Compliant with CPAP. Does not use alcohol. Decreasing caffeine intake Continue monitoring symptoms, if frequency increases or if symptoms worsen will have further discussion regarding ablation. Continue Eliquis 5 mg twice daily Continue metoprolol succinate 100 mg daily Assessment & Plan (08/07/2024 11:19 AM EST): As mentioned he is now back in sinus rhythm we are increasing his metoprolol to 100 mg daily. I will follow-up with him after his 7-day MCOT monitor is done and the echo Hypertension 03/11/2020 Assessment & Plan (05/01/2025 5:17 PM EDT): Continue current doses of losartan/HCTZ and amlodipine, reduce metoprolol from 50-25. Continue to follow. Continue lifestyle measures. Assessment & Plan (12/15/2024 11:52 AM EDT): Blood pressure is in good control today, it has been historically elevated or borderline, goal bp is <130/80 Continues on regimen which includes ARB Weight loss and regular exercise will likely benefit blood pressure control Follows with cardiology Assessment & Plan (10/10/2024 2:13 PM EST): Blood pressure elevated today 140/70 Seems to [...] back into the pool and swimming again. Assessment & Plan (08/07/2024 11:18 AM EST): Elevated today goal should be less than 130 Assessment & Plan (11/06/2022 11:16 AM EST): Blood pressure is borderline today, goal bp is <130/80 Continues on regimen which includes ARB Weight loss and regular exercise will likely benefit blood pressure control Follows with cardiology Assessment & Plan (07/07/2022 1:30 PM EST): Blood pressure is modestly elevated today, goal bp is <130/80 Continues on regimen which includes ARB Weight loss and regular exercise will likely benefit blood pressure control Follows with cardiology Assessment & Plan (12/22/2021 1:15 PM EDT): Blood pressure is elevated today, goal bp is <130/80 Continues on regimen which includes ARB Weight loss and regular exercise will likely benefit blood pressure control Follows with cardiology Assessment & Plan (03/11/2020 10:54 AM EDT): Goal should be less than 130 mmHg Angina pectoris 03/11/2020 Assessment & Plan (05/01/2025 5:20 PM EDT): Troponins were elevated 04/24/2025 at [facility] ED. Patient left AMA. Symptoms atypical for angina, see HPI, however, we are going to update a nuclear stress test for further evaluation. 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 Also requested patient update a BMP as his potassium was slightly low in the hospital. Follow-up once testing complete. ED precautions in the interim. Assessment & Plan (03/11/2020 10:54 AM EDT): I explained the risk benefits and alternatives to cardiac catheterization we are going to proceed with this at the [facility]. Diabetes 03/11/2020 Assessment & Plan (03/25/2021 9:02 AM EDT): CGM data indicates very modest variability but distinct prandial glucose elevation It is clear during wear period that even the smallest dose of Ozempic may have begun to make an impact, average glucose daily dropped from mid 200s to high 100s to low 200s in the last 8 days of CGM wear period We discussed the likely continued benefits of Ozempic with dose escalation to the more clinically significant 0.5mg weekly which Coleman will start after one more week at 0.25mg, we will then consider optimizing this further to 1mg weekly as needed Coleman will continue his current therapies for now, however we will aim to discontinue POSADA therapy since this may increase risk for hypoglycemia and will impede weight loss efforts Coleman will return to meet with me in 3 months, he is encouraged to contact me with any questions in the interim Assessment & Plan (03/11/2020 10:54 AM EDT): He needs significant weight loss A1c was greater than 10 Class 3 severe obesity with serious comorbidity and body mass index (BMI) of 40.0 to 44.9 in adult 03/11/2020 Assessment & Plan (12/15/2024 11:54 AM EDT): S/p lap band procedure in the past BMI remains just over 40 Coleman feels he has had more weight loss benefit from Mounjaro, home weights are lower Encouraged to continue efforts at healthy lifestyle Assessment & Plan (06/09/2024 1:03 PM EDT): S/p lap band procedure in the past BMI remains just over 40 Coleman may have further weight loss benefit from change to Mounjaro Encouraged to continue efforts at healthy lifestyle Assessment & Plan (12/06/2023 5:00 PM EDT): S/p lap band procedure in the past BMI remains >40 but has declined from 42.66, recent weight regain due to period of inactivity and poor diet Treatment with GLP1ra should benefit continued weight management, this is more robust with Ozempic than with Soliqua in the past and since Ozempic is also proving to be significantly more effective for glucose management Coleman's sleep has improved which is likely to lead to metabolic improvements Assessment & Plan (08/03/2023 1:39 PM EST): S/p lap band procedure in the past BMI remains >40 but has declined from 42.66 to 40.45 since February Treatment with GLP1ra should benefit weight management, this is likely to be more robust with Ozempic than with Soliqua in the past and since Ozempic is also proving to be significantly more effective for glucose management Coleman's sleep has improved which is likely to lead to metabolic improvements Assessment & Plan (11/06/2022 12:05 PM EST): S/p lap band procedure in the past BMI remains >40 Treatment with GLP1ra should benefit weight management, this is likely to be more robust with Ozempic than with Soliqua in the past and since Ozempic is also proving to be significantly more effective for glucose management Now that Coleman is sleeping better due to improved overnight glucose patterns, this too should help metabolically in general and with weight management specifically Assessment & Plan (07/07/2022 5:14 PM EST): S/p lap band procedure in the past BMI remains >40, oCleman had lost 15lb between February 2021 and February 2022, more recently has regained 5lb Treatment with GLP1ra should benefit weight management, however this is likely to be less with Lixisenatide than with Ozempic We discussed optimizing Soliqua which will lead to higher dose of GLP1ra component as well, if at max dose of Soliqua Coleman is still struggling with control we will consider change to GLP1/GIP + basal insulin or some other combination which should be more effective for glucose control and may also be more effective for weight loss Has continued with healthy diet, continues to be limited in terms of activity due to knee pain Assessment & Plan (03/27/2022 9:23 AM EDT): S/p lap band procedure in the past BMI remains >40 but Coleman has had 15lb weight loss since last summer Treatment with GLP1ra should benefit weight management, however this is likely to be less with Lixisenatide than with Ozempic Has continued with healthy diet and is now also more active, will be getting knee issue evaluated so that he can optimize activity Assessment & Plan (12/22/2021 1:16 PM EDT): S/p lap band procedure in the past BMI remains >40 but has had 8lb weight loss since our last visit Treatment with GLP1ra should benefit weight management, however this is likely to be less with Lixisenatide than with Ozempic Has continued with healthy diet and is now also more active Assessment & Plan (09/22/2021 12:01 PM EST): S/p lap band procedure in the past BMI remains >40 Treatment with GLP1ra should benefit weight management, however this is likely to be less with Lixisenatide than with Ozempic Has made changes to diet since last CGM trial this summer, encouraged to continue efforts at optimizing lifestyle Assessment & Plan (06/26/2021 5:11 PM EDT): S/p lap band procedure in the past BMI is >40 Treatment with Ozempic should benefit weight management, however he had to change to Trulicity in March and has not tolerated this well, we will attempt coverage for Ozempic again Has made changes to diet since last CGM trial this summer, encouraged to continue efforts at optimizing lifestyle Assessment & Plan (03/25/2021 8:57 AM EDT): S/p lap band procedure in the past BMI is >40 Treatment with Ozempic should benefit weight management Encouraged to continue efforts at optimizing lifestyle Assessment & Plan (03/11/2021 10:42 AM EDT): S/p lap band procedure in the past BMI is >40 Encouraged to try to eat well balanced meals, and to work up to being more active Weight loss will improve insulin sensitivity and thereby blood sugar control, it will also benefit blood pressure control and overall cardiovascular health Assessment & Plan (03/11/2020 10:55 AM EDT): This patient probably needs to lose in excess of 100 to 150 pounds he already had a LAP-BAND which is not working. Hypercholesterolemia 02/01/2018 Assessment & Plan (12/15/2024 11:53 AM EDT): Continues on moderate intensity statin therapy There is no recent lipid panel available for review, LDL optimal goal is <70 Likely to benefit from high intensity statin therapy Follows with cardiology Assessment & Plan (10/10/2024 2:14 PM EST): He should probably be on high intensity statin therapy. He does have diabetes which he takes insulin for. I do not see that his LDL has ever been below 70 which should be his target, has not been checked since 2021 Recheck lipid profile If LDL is greater than 70 would switch him to rosuvastatin Assessment & Plan (06/09/2024 1:03 PM EDT): Continues on moderate intensity statin therapy Most recent lipid panel available for review indicates above goal LDL and low HDL LDL optimal goal is <70 Change to high intensity statin therapy would be advisable Follows with cardiology Assessment & Plan (12/06/2023 5:02 PM EDT): Continues on moderate intensity statin therapy Most recent lipid panel available for review indicates above goal LDL and low HDL LDL optimal goal is <70 Change to high intensity statin therapy would be advisable Follows with cardiology Assessment & Plan (08/03/2023 1:36 PM EST): Continues on moderate intensity statin therapy Most recent lipid panel available for review indicates above goal LDL and low HDL LDL optimal goal is <70 Change to high intensity statin therapy would be advisable Follows with cardiology Assessment & Plan (03/23/2023 12:49 PM EDT): Continues on moderate intensity statin therapy Most recent lipid panel available for review indicates above goal LDL and low HDL LDL optimal goal is <70 Change to high intensity statin therapy would be advisable Follows with cardiology Assessment & Plan (11/06/2022 11:17 AM EST): Continues on moderate intensity statin therapy Most recent lipid panel indicates above goal LDL and low HDL LDL optimal goal is <70 Change to high intensity statin therapy would be advisable Follows with cardiology Assessment & Plan (07/07/2022 1:31 PM EST): Continues on moderate intensity statin therapy Most recent lipid panel indicates above goal LDL and low HDL LDL optimal goal is <70 Change to high intensity statin therapy would be advisable Assessment & Plan (03/27/2022 9:24 AM EDT): Continues on moderate intensity statin therapy Most recent lipid panel indicates above goal LDL and low HDL LDL goal is <70 Change to high intensity statin therapy would be advisable Assessment & Plan (12/22/2021 1:16 PM EDT): Continues on moderate intensity statin therapy Most recent lipid panel indicates above goal LDL and low HDL LDL goal is <70 Change to high intensity statin therapy would be advisable Assessment & Plan (09/22/2021 11:59 AM EST): Continues on moderate intensity statin therapy Most recent lipid panel indicates above goal LDL and low HDL LDL goal is <70 Change to high intensity statin therapy would be advisable Assessment & Plan (06/26/2021 5:10 PM EDT): Continues on moderate intensity statin therapy Most recent lipid panel indicates above goal LDL and low HDL LDL goal is <70 Change to high intensity statin therapy would be advisable Assessment & Plan (03/11/2021 10:53 AM EDT): Continues on moderate intensity statin therapy Most recent lipid panel indicates above goal LDL and low HDL LDL goal is <70 Change to high intensity statin therapy would be advisable Type 2 diabetes mellitus wit hout complication, without long-term current use of insulin 02/01/2018 Assessment & Plan (12/15/2024 11:57 AM EDT): Coleman has been doing well on Mounjaro currently at 10mg weekly, he has continued to have a lower appetite and has had an easier time managing meal portions; he will continue his current dose for now He is advised to monitor glucose patterns as he is more active this spring, his insulin requirement is likely to decrease again Coleman follows with cardiology Coleman will continue current Lantus dose for now based on his recent CGM patterns, we discussed that with lower insulin requirement he is likely to notice weight loss and that weight loss will also result in lower insulin requirement Continues to use CPAP consistently Continues on Metformin We reviewed CGM data together, Coleman finds using CGM very helpful in assessing the impact from his medications as well as his diet/activity, continues on FSL3 Encouraged to continue his efforts at healthy eating and staying active We will follow up in 6 months, he is encouraged to contact me with any questions or concerns Assessment & Plan (08/07/2024 11:18 AM EST): LDL should be less than 70 mg/dL and A1c should be less than 7 Assessment & Plan (06/09/2024 1:20 PM EDT): Coleman has been doing well on Ozempic, 1mg weekly, he has had a lower appetite and has had an easier time managing meal portions; we discussed optimizing this for more effect on weight loss and glucose lowering vs changing to Mounjaro which may prove more effective and allow for more dosing options Coleman will start Mounjaro 7.5mg once weekly in place of Ozempic and keep me posted on how he does Coleman continues to experience constipation as a side effect, this is manageable, we discussed osmotic laxatives and importance of taking in adequate fluids for this to be effective Reduction in caffeine and hydrating appropriately may also benefit Coleman's CV health, he is advised to get evaluated if he continues to have episodic palpitations Coleman will continue current Lantus dose for now, he is likely to be able to reduce this again if Mounjaro proves more effective than current Ozempic Continues to use CPAP consistently Continues on Metformin We reviewed CGM data together, Coleman finds using CGM very helpful, continues on FSL3 Encouraged to continue his efforts at healthy eating and staying active We will follow up in 6 months, he is encouraged to contact me with any questions or concerns Assessment & Plan (12/06/2023 5:04 PM EDT): Coleman has been doing well on Ozempic, 1mg weekly, CGM patterns indicate worsened glucose control compared to the past due to some recent health issues, but these are improving Coleman is experiencing constipation as a side effect, this is manageable and he is advised to increase fluid intake Coleman will continue current Lantus dose for now, he is likely to be able to reduce this again as his lifestyle and glucose control continue to improve Continues to use CPAP consistently Continues on Metformin We reviewed CGM data together, Coleman finds using CGM very helpful, continues on FSL3 Encouraged to continue his efforts at healthy eating and staying active We will follow up in 6 months, he is encouraged to contact me with any questions or concerns Assessment & Plan (08/03/2023 1:50 PM EST): Coleman has been doing well on Ozempic, 1mg weekly, CGM patterns indicate much improved glucose control Coleman will continue current Lantus dose for now but we discussed management plan to reduce this if he notes lower readings overnight which will be likely with weight loss and with increase in activity Continues to use CPAP consistently and sleep quality has improved Continues on Metformin, has been less consistent in evening so we discussed taking 1g once daily in the morning only We reviewed CGM data together, Coleman finds using CGM very helpful, we discussed the FSL3 and the fact that this does not need scanning Encouraged to continue his efforts at healthy eating and staying active We will follow up in 4 months, he is encouraged to contact me with any questions or concerns Assessment & Plan (03/23/2023 12:54 PM EDT): Coleman has been doing well on Ozempic, 0.5mg weekly, we discussed optimizing this to 1mg weekly and he will start this with next scheduled dose Coleman will continue current Lantus dose for now Overall CGM data indicates need for improvement and optimized dose of Ozempic is sure to help but he may also need increase in basal insulin If Coleman is able to achieve weight loss then his insulin requirement is likely to reduce Continues to use CPAP consistently and sleep quality has improved Continues on Metformin, though has been less consistent in evening, advised to resume once daily dosing of this in the morning, encouraged to start with 3 tablets (1500mg) and if tolerated then increase to 4 tablets (2000mg) We reviewed CGM data together, Coleman finds using CGM very helpful Encouraged to continue his efforts at healthy eating and staying active We will follow up in 4 months, he is encouraged to contact me with any questions or concerns Assessment & Plan (11/06/2022 12:04 PM EST): Ozempic tolerated in the past, had to change to Bydureon per insurance formulary but this was ineffective and caused injection site pain, Trulicity caused GI side effects, Coleman was not having a good response to Soliqua despite optimized dosage at max Since change from Soliqua to Lantus 60u and Ozempic 0.5mg once weekly, Coleman has had significant improvement in his glycemic metrics, his A1c is significantly improved after only a month of this therapy Coleman will continue on current dose of Ozempic, 0.5mg weekly, and continue to work on optimizing his lifestyle; we discussed that optimizing noninsulin therapies is likely to reduce his insulin requirement but ultimately he would like to try to limit his doses of all medications We revisited the CV benefits of GLP1ra, this too is likely to be more robust with Ozempic compared to Lixizenatide per available data Coleman no longer has nocturia Continues to use CPAP consistently and sleep quality has improved, we discussed the benefits of improved sleep Continues on Metformin We reviewed CGM data together, Coleman finds using CGM very helpful Encouraged to continue his efforts at healthy eating and staying active We will follow up in 4 months, he is encouraged to contact me with any questions or concerns Assessment & Plan (07/07/2022 5:17 PM EST): Ozempic tolerated in the past, had to change to Bydureon per insurance formulary but this was ineffective and caused injection site pain, Trulicity caused GI side effects, Coleman has been doing well on Soliqua but this may not be as effective, we discussed adjustment to 45 units starting tomorrow and increase by 5u every week to max dose of 60 units daily If not effective at max dose then we discussed d/c Soliqua and basal insulin and GLP1ra therapy or even GLP/GIP combination product which is likely to be superior to GLP alone for glucose control and weight loss Coleman continues to have nocturia, he is reassured that as his overnight glucose control improves this should also improve Continues on Metformin We reviewed CGM data together, Coleman finds this very useful Encouraged to continue his efforts at healthy eating and staying active We will follow up in 4 months, he is encouraged to contact me with any questions or concerns Assessment & Plan (03/27/2022 9:26 AM EDT): Ozempic tolerated in the past, had to change to Bydureon per insurance formulary but this was ineffective, this is causing injection site pain, Trulicity caused GI side effects, Coleman has been doing well on Soliqua, we discussed modest adjustment to dosage if glucose patterns rise again, over the past 48-72hrs it appears that overnight patterns are more desirable at current dosage Coleman is having less nocturia but this persists, he is reassured that as he overnight glucose control improves this should also improve Continues on Metformin We reviewed CGM data together, Coleman finds this very useful Encouraged to continue his efforts at healthy eating and staying active We will follow up in 4 months, he is encouraged to contact me with any questions or concerns Assessment & Plan (12/22/2021 1:20 PM EDT): Ozempic tolerated in the past, had to change to Bydureon per insurance formulary but this was ineffective, this is causing injection site pain, Trulicity caused GI side effects, Coleman has been doing well on Soliqua but this has been at modest dosage Given Coleman's symptoms c/w hyperglycemia and today's A1c, we discussed a fairly robust increase in Soliqua to 20u daily, we'll continue to adjust this as needed Continues on Metformin We reviewed previous CGM pro eval together, we discussed use of personal CGM and FSL 2 was placed for Coleman today, if he wishes to continue with this then a prescription will be sent for him Advised to monitor glucose patterns to assess how Soliqua is working and for any needs for dosing adjustment Encouraged to continue his efforts at healthy eating and staying active We will follow up in 3 months and 6 months, he is encouraged to contact me with any questions or concerns Assessment & Plan (09/22/2021 11:58 AM EST): Ozempic tolerated in the past, had to change to Bydureon per insurance formulary, this is causing injection site pain, Trulicity caused GI side effects, Coleman has been on GLP1ra therapy since last summer control has worsened on Bydureon despite diet changes Continues on Metformin We reviewed his CGM pro eval together, based on the data Coleman would likely benefit most from insulin therapy, we discussed combination basal insulin + GLP1ra options, Soliqua preferred by insurance, given sample and instructions on use Advised to monitor glucose patterns to assess how this is working We discussed hypoglycemia symptoms and treatment, we also discussed pseudohypoglycemia symptoms since Coleman's glucose is running so high Encouraged to continue his efforts at healthy eating and staying active We will follow up in 3 months and 6 months, Coleman will also have another CGM pro evaluation, he is encouraged to contact me with any questions or concerns Assessment & Plan (06/26/2021 5:15 PM EDT): Trulicity causing GI side effects, Coleman has been on this since March A1c has worsened despite diet changes Continues on Metformin We discussed resuming Ozempic at 0.5mg once weekly dosage, if tolerates this well as he had in the past then we'll consider optimizing dosage to 1mg weekly which should further help with weight loss effect Encouraged to resume activity slowly and work up to at least 30 minutes on most days of the week Coleman will be traveling next month, he will return for CGM pro placement after he returns home at which point he will have been on Ozempic 0.5mg for over a month Encouraged to contact me with any questions or concerns Assessment & Plan (03/11/2021 10:51 AM EDT): We discussed current antihyperglycemic medication regimen We discussed importance of healthy lifestyle Coleman is agreeable to having a CGM pro eval which will allow us to assess his glucose patterns and make more specific therapy recommendations, Coleman will return for follow up with me to discuss his CGM in 2 weeks We discussed continuing off Januvia and starting Ozempic once weekly, GLP1ra therapy will offer more cardiovascular protection than DPP4i and should help with more robust glucose lowering effect Coleman is encouraged to contact me with any questions or concerns CGM Trial Type of Diabetes: Diabetes mellitus Type 2 Procedures: Glucose Monitoring: Type of Sensor: Buildingeyeyle Mitchel Pro Instruction: Patient Instructed on:, Calibrations, When to test BS, Troubleshooting, What to expect with the sensor, Patient instructed to remove sensor if redness, pain or bleeding occurs. . Insertion Site Selected: right arm Site Prep: Insertion site wiped with alcohol. Insertion: completed, area looks good, no redness, no bleeding. Plan: Procedure Codes: 44196 Glucose monitoring, cont Instruction/Education: Medication: Medication: OZEMPIC Instruction: Provider order reviewed with patient. When to take medication, dosage, and how to take medication. Information given on troubleshooting and side effects of medication. Essential hypertension 02/01/2018 Assessment & Plan (08/07/2024 11:18 AM EST): Not adequately controlled hopefully the higher dose of metoprolol will solve this problem Assessment & Plan (06/09/2024 1:02 PM EDT): Blood pressure is elevated today, goal bp is <130/80, home blood pressure measurements are lower Continues on regimen which includes ARB Weight loss and regular exercise are likely to benefit blood pressure control Follows with cardiology Assessment & Plan (12/06/2023 5:01 PM EDT): Blood pressure is elevated today, goal bp is <130/80 Continues on regimen which includes ARB Weight loss and regular exercise will likely benefit blood pressure control Follows home blood pressures and they are more reassuring than office visit measurements per Coleman's report Follows with cardiology Assessment & Plan (08/03/2023 1:36 PM EST): Blood pressure is elevated today, goal bp is <130/80 Continues on regimen which includes ARB Weight loss and regular exercise will likely benefit blood pressure control Follows with cardiology Assessment & Plan (03/23/2023 12:48 PM EDT): Blood pressure is elevated today, goal bp is <130/80 Continues on regimen which includes ARB Weight loss and regular exercise will likely benefit blood pressure control Follows with cardiology Assessment & Plan (03/27/2022 9:22 AM EDT): Blood pressure is modestly elevated today, goal bp is <130/80 Continues on regimen which includes ARB Weight loss and regular exercise will likely benefit blood pressure control Follows with cardiology Assessment & Plan (09/22/2021 11:59 AM EST): Blood pressure is elevated today Continues on regimen which includes ARB Weight loss and regular exercise will likely benefit blood pressure control Assessment & Plan (06/26/2021 5:10 PM EDT): Blood pressure is elevated today Continues on regimen which includes ARB Weight loss and regular exercise will likely benefit blood pressure control Assessment & Plan (03/11/2021 10:38 AM EDT): Blood pressure is elevated today Continues on regimen which includes ARB Weight loss and regular exercise will likely benefit blood pressure control Encounters Date Type Department Care Team Description 05/01/2025 7:30 AM EDT Office Visit [facility] [address] [place] [address] [address] Floor, [address] [place] [address] Angy Jane, PAJose Roberto Chest pain, unspecified type (Primary Dx); Atrial fibrillation, unspecified type; Paroxysmal atrial fibrillation; Primary hypertension; Angina pectoris 03/30/2025 Refill [facility] [address] [place] [address] Stacy Hendrickson MD Medication Refill from Last 3 Months Immunizations Immunization Administration Dates Next Due COVID-19 (Pre-06/21) AstraZe neca Vaccine, rS-ChAdOx1, PF 12/08/2020,11/17/2020 COVID-19 (Pre) Moderna Vaccine, mRNA, PF 08/06/2021 COVID-19 (Pre-06/21) Pfizer Vaccine, mRNA, PF 12/08/2020,11/17/2020 Influenza, Unspecified Formulation 11/03(Deferred: Patient Decision - 00) Social History Tobacco Use Types Packs/Day Years [...] Assigned at Male 12/19/2021 9:31 AM EDT Legal Sex Male 2:42 PM EST Gender Identity Male 12/19/2021 9:31 AM EDT Sexual Orientation Don't know 06/20/2024 6: 18 PM EDT Last Filed Vital Signs Vital Sign Reading Time Taken Comments Blood Pressure 146/78 05/01/2025 7:32 AM EDT Pulse 71 05/01/2025 7:32 AM EDT Temperature 36.5 C (97.7 F) 06/20/2024 7:15 PM EDT Respiratory Rate 13 06/20/2024 7:15 PM EDT Oxygen Saturation 98% 05/01/2025 7:32 AM EDT Inhaled Oxygen Concentration - - Weight 159.2 kg (351 lb) 05/01/2025 7:32 AM EDT Height 195.6 cm (6' 5.01 ) 05/01/2025 7:32 AM ED T Body Mass Index 41.61 05/01/2025 7:32 AM EDT Plan of Treatment Upcoming Encounters Date Type Department Care Team (Latest Contact Info) Description 05/01/2025 Procedure Pass Event Monitor [address] [place] [address] 05/14/2025 11:30 AM EDT Hospital Encounter Non-Invasive Cardiology [address] [place] [address] Angy Jane PA-C [address] [place] [address] [email or web address] 05/29/2025 1:00 PM EDT Appointment Event Monitor [address] [place] [address] Angy Jane PA-C [address] [place] [address] [email or web address] 06/26/2025 11:30 AM EDT Office Visit [facility] [address] Floor, [address] [place] [address] Angy Jane PA-C [address] [place] [address] [email or web address] 07/06/2025 11:00 AM EST Office Visit [facility] [address] [place] [address] Stacy Hendrickson MD 22 [facility], 1st [place] [address] Health Maintenance Due Date Last Done Comments Adult Td,Tdap Booster 1965 DEPRESSION SCREENING 1975 HEPATITIS C SCREENING 1981 HIV ONE-TIME SCREENING (18-65 YEARS) 1981 PNEUMOCOCCAL VACCINES (50+ years) (1 of 2 - PCV) 1982 COLOGUARD 02/16/2008 COLONOSCOPY 02/16/2008 COLORECTAL CANCER SCREENING 02/16/2008 FIT TEST 02/16/2008 FOBT 02/16/2008 SIGMOIDOSCOPY 02/16/2008 VIRTUAL COLONOSCOPY 02/16/2008 ZOSTER VACCINES (1 of 2) 2013 RSV VACCINE (1 - Risk 60-74 years 1-dose series) 2023 DIABETIC EYE EXAM 03/15/2025 03/15/2024 INFLUENZA VACCINE (#1) 2025 COVID-19 VACCINE ( season) 2025 07/01/2023, 07/15/2022, 08/06/2021, Additional history exists HEMOGLOBIN A1C 06/16/2025 12/15/2024, 05/30, 12/06/2023, Additional history exists CREATININE LEVEL 06/20/2025 06/20/2024 POTASSIUM LEVEL 06/20/2025 06/20/2024, 05/19/2022 BLOOD PRESSURE 10/29/2025 05/01/2025 SMOKING STATUS SCREENING (Once After 26 Yrs) Completed 05/01/2025 HEPATITIS A VACCINES Aged Out No long er eligible based on patient's age to complete this topic HIB VACCINES Aged Out No longer eligi ble based on patient's age to complete this topic MENINGOCOCCAL VACCINES (ACWY) Aged Out No longer eligible based on patient's age to complete this topic MENINGOCOCCAL VACCINES (B) Aged Out N o longer eligible based on patient's age to complete this topic Medical Devices Implanted Type Area Head Of Biology Device Identifier Shelf Expiration Date Model / Serial / Lot Lap Band Lap Band Prosthetic Joint Prosthetic Joint Left: Hip Procedures Procedure Name Priority Date/Time Associated Diagnosis Comments POCT HEMOGLOBIN A1C Routine 12/15/2024 1 1:35 AM EDT Type 2 diabetes mellitus without complication, without long-term current use of insulin BASIC METABOLIC PANEL STAT 06/20/2024 4:17 PM EDT DIABETES EYE EXAM FOR RESULT ENTRY ONLY Routine 03/15/2024 from Last 3 Months or Most Recently Relevant to Health Maintenance Results * (ABNORMAL) POCT Hemoglobin A1c (12/15/2024 11:35 AM EDT) Hemoglobin A1c 7.5(A) 4.2 - 5.6 % TwoF [facility] Other 12/15/2024 11:3 5 AM EDT us Stacy Hendrickson MD POINT OF CARE TEST ORDERABLES F inal Result [facility] [address] [place] [address], [facility] * (ABNORMAL) Basic metabolic panel (06/20/2024 4:17 PM EDT) SODIUM 140 133 - 146 mmol/L [facility] CHLORIDE 104 96 - 108 mmol/L [facility] POTASSIUM 3.4 3.3 - 5.1 mmol/L [facility] CO2 23 21 - 35 mmol/L [facility] BUN 16 6 - 19 mg/dL [facility] CREATININE 0.80 0.5 - 1.5 mg/dL [facility] GLUCOSE 257(H) 70 - 99 mg/dL [facility] CALCIUM 9.5 8.4 - 10.3 mg/dL [facility] EGFR 101 >59 mL/min/1.7 3m2 [facility] Comment:Estimated glomerular filtration rate calculated using the CKD-EPI refit equation. ANION GAP 16 10 - 20 mmol/L [facility] Blood 06/20/2024 4:17 PM EDT 06/20/2024 4:23 PM EDT us Blanco Monk MD LAB BLOOD ORDERABLES Fin al Result [address] [address] * DIABETES EYE EXAM FOR RESULT ENTRY ONLY (03/15/2024) Pathologist [facility] EYE EXAM SEE SCANNED REPORT Historical Provider HEALTH MAINTENANCE Final Result from Last 3 Months or Most Recently Relevant to Health Maintenance Insurance [place] [address] [place] [address] [place] [address] [place] [address] [place] [address] [place] [address] Advance Directives For more information, please contact: [phone] (9AM - 5PM [facility], Wednesday-Wednesday) Documents on File Type Date Recorded Patient Respite Worker Expl anation Advance Directive - Non Epic LMR 11/09/2014 12:00 AM Care Teams Heat Engineering Teacher Relationship Specialty Start Date End Date Gigi Mcwilliams DO PCP - General Internal Medicine 09/28/14 Additional Source Comments The information contained in this document represents components of the legal health record. It is not the complete legal health record.[facility]
--- OUTSIDE RECORDS SUMMARY | 2025-05-08 13:03 | XMS_ITS | Encounter Summary ---
Author Organization [facility] Address [facility] CodeHS [facility] [address] [place] [address] Phone Care Team Providers Care Director Of Rehabilitative Services Name Role Phone Gigi Mcwilliams Primary Care Provider [phone] Encounter Details Date Type Department Care Team (Late st Contact Info) Description 08/07/2024 Procedure Pass Echo Lab [address] [place] [address] Social History Tobacco Use Types Packs/Day Years [...] Description 05/01/2025 Procedure Pass Event Monitor [address] [place] [address] 05/14/2025 11:30 AM EDT Hospital Encounter Non-Invasive Cardiology [address] [place] [address] Angy Jane PA-C [address] [place] [address] [email or web address] 05/29/2025 1:00 PM EDT Appointment Event Monitor [address] [place] [address] Angy Jane PA-C [address] [place] [address] [email or web address] 06/26/2025 11:30 AM EDT Office Visit [facility] [address] [facility] 3rd Floor, [address] [place] [address] Angy Jane PAJose Roberto [address] [place] [address] [email or web address] 07/06/2025 11:00 AM EST Office Visit [facility] [address] [place] [address] Stacy Hendrickson MD 22 [facility], 1st [place] [address] documented as of this encounter Visit Diagnoses Not on filedocumented in this encounter Care Teams Director Of Rehabilitative Services Relationship Specialty Start Date End Date Gigi Mcwilliams DO [email or web address] PCP - General Internal Medicine 09/28/14 documented as of this encounter Additional Source Comments The information contained in this document represents components of the legal health record. It is not the complete legal health record.[facility]
--- OUTSIDE RECORDS SUMMARY | 2025-05-08 13:03 | XMS_ITS | Clinical Summary ---
Author Organization [facility] [employer] Address [address] [facility] [place] [address] Care Team Providers Care Rooming House Operator Name Role Phone NeishaellenGigi DO Primary Care Provider Unav ailable Immunizations [...] Due Date Last Done Comments Colorectal Cancer: COLONOSCO PY Screening every 10 yrs (or Modifier) 1965 Depression: Screening Annual ly using PHQ-2/9 in Adults 18 yrs or above (or HM Modifier)([facility]) 1981 Hepatitis C Virus Infection in Adolescents and Adults: Screening (or Modifier) ([facility]) 1981 SDSD Screening Reminder: Iman watts for all adults ([facility]) 1981 Tobacco Smoking Cessation: i n Adults excluding Women: Behavioral and Pharmacotherapy Interventions ([facility]) 1981 DTaP/Tdap/Td Vaccines ([facility]) (1 - Tdap) 1982 Colorectal Cancer Screening 45 -75 Yrs (or HM Modifier ) 02/16/2008 Colorectal Cancer: FLEXIBLE SIGMOIDOSCOPY Screening every 5 yrs 02/16/2008 Colorectal Cancer: Fecal Imm unochemical Test (FIT) Annually [facility] 02/16/2008 Colorectal Cancer: High-sens itivity gFOBT Screening Annually [facility] 02/16/2008 Colorectal Cancer: Stool Col oguard Screening every 3 yrs 02/16/2008 Colorectal Cancer:CT Colonography Screening every 5 yr s 02/16/2008 Pneumococcal Vaccination Scr eening: Patients 50+ yrs of age ([facility]) (1 of 1 - PCV) 2013 Zoster/Shingles Vaccine Seri es Screening: Adults aged 18+ yrs (or HM Modifiers)([facility]) (1 of 2) 2013 Flu Vaccination: Yearly for ages 18mos through 64 years (or Modifier)([facility]) 03/30/2025 RSV Vaccines (1 - 1-dose 75+ series) 2038 Medical Devices Not on file Insurance [facility] Care Teams Rooming House Operator Relationship Specialty Start Date End Date Gigi Mcwilliams DO [address] [facility] [place] [place] [address] PCP - General Internal Medicine 08/06/21
--- OUTSIDE RECORDS SUMMARY | 2025-05-08 13:03 | XMS_ITS | Encounter Summary ---
Author Organization [facility] Address [facility]ly [facility] [employer] [facility] [address] [place] [address] Phone Care Team Providers Care Tub Puller Name Role Phone Gigi Mcwilliams DO Primary Care Provider [phone] Encounter Details Date Type Department Care Team (Late st Contact Info) Description 07/12/2017 Ancillary Orders [facility] External Provider Virtual Department [address] [place] [address] Monse Don PA-C [address] [place] [address] Chest pain on exertion Social History Tobacco [...] Description 05/01/2025 Procedure Pass Event Monitor [address] [place] [address] 05/14/2025 11:30 AM EDT Hospital Encounter Non-Invasive [place] [address] Angy Jane PAClemenciaC [address] [place] [address] [email or web address] 05/29/2025 1:00 PM EDT Appointment Event Monitor [address] [place] [address] Angy Jane PA-C [address] [place] [address] [email or web address] 06/26/2025 11:30 AM EDT Office Visit [facility] 22 [facility] 3rd Floor, [address] [place] [address] Angy Jane PA-C [address] [place] [address] [email or web address] 07/06/2025 11:00 AM EST Office Visit [facility] [address] [place] [address] Stacy Hendrickson MD 22 [facility], 1st [place] [address] [email or web address] documented as of this encounter Visit Diagnoses [...] documented as of this encounter Care Teams Tub Puller Relationship Specialty Start Date End Date Gigi Mcwilliams DO PCP - General Internal Medicine 09/28/14 documented as of this encounter Additional Source Comments The information contained in this document represents components of the legal health record. It is not the complete legal health record.[facility]
--- OUTSIDE RECORDS SUMMARY | 2025-05-08 13:03 | XMS_ITS | Encounter Summary ---
Author Organization [facility] Address [address] [place] [address] Phone Care Team Providers Care Heavy Equipment Sales Manager Name Role Phone Gigi Mcwilliams Primary Care Provider Reason for Referral * MRI/CAT Scan - Closed Specialty Diagnoses / Procedures Referred By Riri t Referred To Contact Radiology Diagnoses Left knee pain, unspecified chronicity Procedures MRI Knee (Left) CHG MRI LOWER EXTREM JT, W/O CONTRAST Charleen aLrson PA [address] [facility] [place] [address] Phone: tel: fax: Referral ID Status Reason Start Date Expiration Date Visits Re quested Visits Authorized [id number] Closed 04/26/2023 05/26/2023 1 1 Encounter Details Date Type Department Care Team (Latest Contact Info) Description 04/05/2023 Transcribe Orders Virtual Department [address] [place] [address] Charleen Larson PA 6 [facility] [place] [address] Left knee pain, unspecified chronicity (Primary Dx); [...] Description 05/01/2025 Procedure Pass Event Monitor [address] [place] [address] 05/14/2025 11:30 AM EDT Hospital Encounter Non-Invasive Cardiology [address] [place] [address] Angy Jane PA-C [address] [place] [address] [email or web address] 05/29/2025 1:00 PM EDT Appointment Event Monitor [address] [place] [address] Angy Jane PA-C [address] [place] [address] [email or web address] 06/26/2025 11:30 AM EDT Office Visit [facility] [address] Floor, [address] [place] [address] Angy Jane PAJose Roberto [address] [place] [address] [email or web address] 07/06/2025 11:00 AM EST Office Visit [facility] [address] [place] [address] Stacy Hendrickson MD 22 [facility], 1st [place] [address] [email or web address] documented as of [...] effusion. 4.7 cm ill-defined peripherally T1 and M2nbxakykbjav, internally T2 hyperintense structure in the supra [...] ill-defined, peripherally T1 and T2 hypointense, internally B5lotkizcoetik structure in the supra patellar fat pad with questionableintrasubstance fat signal on T1 images. 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 This couldpotentially trigger mechanical symptoms. Mild to moderate chronic appearing distal quadriceps tendinopathy withpartial tearing. us Charleen REGALADO IMG MR EXTREMITY Final Resu lt documented in this encounter Visit Diagnoses Diagnosis Left knee pain, unspecified chronicity- Primary Gross hematuria Left knee pain, unspecified chronicity documented in this encounter Care Teams Heavy Equipment Sales Manager Relationship Specialty Start Date End Date Gigi Mcwilliams DO [email or web address] PCP - General Internal Medicine 09/28/14 documented as of this encounter Additional Source Comments The information contained in this document represents components of the legal health record. It is not the complete legal health record.[facility]
--- OUTSIDE RECORDS SUMMARY | 2025-05-08 13:03 | XMS_ITS | Encounter Summary ---
Author Organization [facility] Address [facility] [employer] [facility] [address] [place] [address] Phone Care Team Providers Care Telegraph Mechanic Name Role Phone Gigi Mcwilliams Primary Care Provider [phone] Reason for Referral * MRI/CAT Scan - Closed Specialty Diagnoses / Procedures Referred By Riri yang Referred To Contact Radiology Diagnoses Chest pain on exertion Procedures NC Myocardial Perfusion Pharmacologic Stress Multiple Monse Don PA-C Phone: tel: fax: Referral ID Status Reason Start Date Expiration Date Visits Re quested Visits Authorized [id number] Closed 08/06/2017 11/04/2017 1 1 Encounter Details Date Type Department Care Team (Late st Contact Info) Description 08/09/2017 Ancillary Orders Virtual Department [address] [place] [address] Monse Don PA-C [address] [place] [address] Chest pain on exertion Social History Tobacco [...] Description 05/01/2025 Procedure Pass Event Monitor [address] [place] [address] 05/14/2025 11:30 AM EDT Hospital Encounter Non-Invasive Cardiology [address] [place] [address] Angy Jane PA-C [address] [place] [address] [email or web address] 05/29/2025 1:00 PM EDT Appointment Event Monitor [address] [place] [address] Angy Jane PA-C [address] [place] [address] [email or web address] 06/26/2025 11:30 AM EDT Office Visit [facility] [address], [address] [place] [address] Angy Jane PA-C [address] [place] [address] [email or web address] 07/06/2025 11:00 AM EST Office Visit [facility] [address] [place] [address] Stacy Hendrickson MD 22 [facility], 1st [place] [address] documented as of this encounter Results * [...] during treadmill testing on which the patient [id number]% of MPHR at a maximum workload of [...] [email or web address] November Florencia OGLESBY CV NM CARDIAC Final Result documented in this encounter Visit Diagnoses Diagnosis [...] documented as of this encounter Care Teams Telegraph Mechanic Relationship Specialty Start Date End Date Gigi Mcwilliams DO [email or web address] PCP - General Internal Medicine 09/28/14 documented as of this encounter Additional Source Comments The information contained in this document represents components of the legal health record. It is not the complete legal health record.[facility]
--- OUTSIDE RECORDS SUMMARY | 2025-05-08 13:03 | XMS_ITS | Encounter Summary ---
Author Organization [facility] Address [facility] [place] [address] [place] [address] Phone Care Team Providers Care Admissions Gate Attendant Name Role Phone Gigi Mcwilliams DO Primary Care Provider [phone] Encounter Details Date Type Department Care Team (Late st Contact Info) Description 08/05/2017 Ancillary Orders [facility] External Provider Virtual Department [address] [place] [address] Monse Don PA-C [address] [place] [address] Social History Tobacco Use Types Packs/Day Years [...] Info) Description 05/01/2025 Procedure Pass Event [place] [address] 05/14/2025 11:30 AM EDT Hospital Encounter Non-Invasive Card[place] [address] Angy Jane PA-C [address] [place] [address] [email or web address] 05/29/2025 1:00 PM EDT Appointment Event Monitor [address] [place] [address] Angy Jane PA-C [address] [place] [address] [email or web address] 06/26/2025 11:30 AM EDT Office Visit [facility] 22 [facility] 3rd Floor, [address] [place] [address] Angy Jane PA-C [address] [place] [address] [email or web address] 07/06/2025 11:00 AM EST Office Visit [facility] [address] [place] [address] Stacy Hendrickson MD 22 [facility], 1st [place] [address] documented as of this encounter Visit Diagnoses [...] documented as of this encounter Care Teams Admissions Gate Attendant Relationship Specialty Start Date End Date Gigi Mcwilliams DO [email or web address] PCP - General Internal Medicine 09/28/14 documented as of this encounter Additional Source Comments The information contained in this document represents components of the legal health record. It is not the complete legal health record.[facility]
--- OUTSIDE RECORDS SUMMARY | 2025-05-08 13:03 | XMS_ITS | Encounter Summary ---
Author Organization [facility] Address [employer] [address] [place] [address] Phone Care Team Providers Care Forge Utility Worker Name Role Phone Gigi Mcwilliams Primary Care Provider [phone] Encounter Details Date Type Department Care Team (Latest Contact Info) Description 2023 Transcribe Orders Virtual Department [address] [place] [address] Charleen Larson PA 6 [facility] [place] [address] Gross hematuria (Primary Dx) Social History Tobacco [...] Description 05/01/2025 Procedure Pass Event Monitor [address] [place] [address] 05/14/2025 11:30 AM EDT Hospital Encounter Non-Invasive Cardiology [address] [place] [address] Angy Jane PA-C [address] [place] [address] [email or web address] 05/29/2025 1:00 PM EDT Appointment Event Monitor [address] [place] [address] Angy Jane PA-C [address] [place] [address] [email or web address] 06/26/2025 11:30 AM EDT Office Visit [facility] 22 [facility] 3rd Floor, [address] [place] [address] Angy Jane PA-C [address] [place] [address] [email or web address] 07/06/2025 11:00 AM EST Office Visit [facility] [address] [place] [address] Stacy Hendrickson MD 22 [facility], 1st [place] [address] documented as of this encounter Visit Diagnoses Diagnosis Gross hematuria- Primary documented in this encounter Care Teams Forge Utility Worker Relationship Specialty Start Date End Date Gigi Mcwilliams DO PCP - General Internal Medicine 09/28/14 documented as of this encounter Additional Source Comments The information contained in this document represents components of the legal health record. It is not the complete legal health record.[facility]
--- OUTSIDE RECORDS SUMMARY | 2025-05-08 13:03 | XMS_ITS | Encounter Summary ---
Author Organization [facility] Address [facility] [employer] [facility] [address] [place] [address] Phone Care Team Providers Care Textile Artist Name Role Phone Gigi Mcwilliams DO Primary Care Provider Encounter Details Date Type Department Care Team (Late st Contact Info) Description 08/05/2017 Ancillary Orders Non-Invasive Cardiology 30 [place] [address] Mosne Don PA-C [address] [place] [address] Chest pain on exertion Social History Tobacco [...] Description 05/01/2025 Procedure Pass Event Monitor [address] [place] [address] 05/14/2025 11:30 AM EDT Hospital Encounter Non-Invasive Cardiology [address] [place] [address] Angy Jane PAClemenciaC [address] [place] [address] [email or web address] 05/29/2025 1:00 PM EDT Appointment Event Monitor [address] [place] [address] Angy Jane PA-C [address] [place] [address] [email or web address] 06/26/2025 11:30 AM EDT Office Visit [facility] 22 [facility] 3rd Floor, [address] [place] [address] Angy Jane PA-C [address] [place] [address] [email or web address] 07/06/2025 11:00 AM EST Office Visit [facility] [address] [place] [address] Stacy Hendrickson MD 22 [facility], 1st [place] [address] documented as of this encounter Results * Stress Test Exercise (08/05/2017 11:29 AM EST) Max BP Systolic 210 mmHg [facility] Max BP Diastolic 90 mmHg [facility] Max HR 139 BPM [facility] Resting HR 73 BPM [facility] Resting BP Systolic 144 mmHg [facility] Resting BP Diastolic 70 mmHg [facility] Peak METS 10.1 METS [facility] Peak HR 139 BPM [facility] Anatomical Region Laterality Modality Heart Other 08/05/2017 [...] lab. EKG reviewed with Dr. Rios. Shyanne eMyer NP November Florencia OGLESBY CV STRESS ORDERABLES Final R esult documented in this encounter Visit Diagnoses Diagnosis [...] as of this encounter Care Teams Textile Artist Relationship Specialty Start Date End Date Gigi Mcwilliams DO [email or web address] PCP - General Internal Medicine 09/28/14 documented as of this encounter Additional Source Comments The information contained in this document represents components of the legal health record. It is not the complete legal health record.[facility]
--- OUTSIDE RECORDS SUMMARY | 2025-05-08 13:03 | XMS_ITS | Encounter Summary ---
Author Organization [facility] Address [address] [place] [address] Phone Care Team Providers Care Head Sawyer Name Role Phone Gigi Mcwilliams Primary Care Provider [phone] Encounter Details Date Type Department Care Team (Late st Contact Info) Description 04/06/2023 Ancillary Orders Virtual Department 30 [place] [address] Charleen Larson PA 6 [facility] [place] [address] [place] [address] Gross hematuria Social History Tobacco Use Types [...] Description 05/01/2025 Procedure Pass Event Monitor [address] [place] [address] 05/14/2025 11:30 AM EDT Hospital Encounter Non-Invasive Cardiology [address] [place] [address] Angy Jane PA-C [address] [place] [address] [email or web address] 05/29/2025 1:00 PM EDT Appointment Event Monitor [address] [place] [address] Angy Jane PA-C [address] [place] [address] [email or web address] 06/26/2025 11:30 AM EDT Office Visit [facility] 22 [facility] 3rd Floor, [address] [place] [address] Angy Jane PA-C [address] [place] [address] [email or web address] 07/06/2025 11:00 AM EST Office Visit [facility] [address] [place] [address] Stacy Hendrickson MD 22 [facility], 1st [place] [address] documented as of this encounter Results * US Kidneys (04/06/2023 11:29 AM EDT) Anatomical Region Laterality Modality Abdomen, Kidney Ultrasound 04/06/2023 3:24 PM EDT Impressions 04/06/2023 4:33 PM EDT No hydronephrosis or shadowing nephrolithiasis. Narrative 04/06/2023 4:33 PM EDT US KIDNEYS TECHNIQUE: Kidney Ultrasound. COMPARISON: [facility] UPPER FINDINGS: Right Kidney: Size: 15.1 cm [...] Normal. IMPRESSION: No hydronephrosis or shadowing nephrolithiasis. us Charleen REGALADO IMG US RENAL Final Resul t documented in this encounter Visit Diagnoses Diagnosis Gross hematuria Gross hematuria documented in this encounter Care Teams Head Sawyer Relationship Specialty Start Date End Date Gigi Mcwilliams DO [email or web address] PCP - General Internal Medicine 09/28/14 documented as of this encounter Additional Source Comments The information contained in this document represents components of the legal health record. It is not the complete legal health record.[facility]
--- OUTSIDE RECORDS SUMMARY | 2025-05-08 13:03 | XMS_ITS | Encounter Summary ---
Author Organization [facility] Address [facility] [address] [place] [address] Phone Care Team Providers Care Education Department Registrar Name Role Phone Gigi Mcwilliams DO Primary Care Provider [phone] Encounter Details Date Type Department Care Team (Late st Contact Info) Description 08/17/2017 Ancillary Orders Virtual Department 30 [place] [address] Monse Don PA-C [address] [place] [address] Chest pain on exertion Social History Tobacco [...] Info) Description 05/01/2025 Procedure Pass [place] [address] 05/14/2025 11:30 AM EDT Hospital Encounter Non-Invasive [place] [address] Angy Jane PA-C [address] [place] [address] [email or web address] 05/29/2025 1:00 PM EDT Appointment Event Monitor [address] [place] [address] Angy Jane PA-C [address] [place] [address] [email or web address] 06/26/2025 11:30 AM EDT Office Visit [facility] 22 [facility] 3rd Floor, [address] [place] [address] Angy Jane PA-C [address] [place] [address] [email or web address] 07/06/2025 11:00 AM EST Office Visit [facility] [address] [place] [address] Stacy Hendrickson MD 22 [facility], 1st [place] [address] documented as of this encounter Visit Diagnoses [...] documented as of this encounter Care Teams Education Department Registrar Relationship Specialty Start Date End Date Gigi Mcwilliams DO PCP - General Internal Medicine 09/28/14 documented as of this encounter Additional Source Comments The information contained in this document represents components of the legal health record. It is not the complete legal health record.[facility]
--- OUTSIDE RECORDS SUMMARY | 2025-05-08 13:03 | XMS_ITS | Encounter Summary ---
Author Organization [facility] Address [facility] [employer] [facility] [address] [place] [address] Phone Care Team Providers Care Sql Application Developer Name Role Phone Gigi Mcwilliams Primary Care Provider [phone] Encounter Details Date Type Department Care Team (Late st Contact Info) Description 04/05/2023 Procedure Pass [address] [address] Social History Tobacco Use Types Packs/Day Years [...] 05/01/2025 Procedure Pass Event Monitor [address] [place] [address] 05/14/2025 11:30 AM EDT Hospital Encounter Non-Invasive Cardiology [address] [place] [address] Angy Jane PA-C [address] [place] [address] [email or web address] 05/29/2025 1:00 PM EDT Appointment Event Monitor [address] [place] [address] Angy Jane PA-C [address] [place] [address] [email or web address] 06/26/2025 11:30 AM EDT Office Visit [facility] 22 [facility] 3rd Floor, [address] [place] [address] Angy Jane PA-C [address] [place] [address] [email or web address] 07/06/2025 11:00 AM EST Office Visit [facility] [address] [place] [address] Stacy Hendrickson MD 22 [facility], 1st [place] [address] documented as of this encounter Visit Diagnoses Not on filedocumented in this encounter Care Teams Sql Application Developer Relationship Specialty Start Date End Date Gigi Mcwilliams DO PCP - General Internal Medicine 09/28/14 documented as of this encounter Additional Source Comments The information contained in this document represents components of the legal health record. It is not the complete legal health record.[facility]
--- OUTSIDE RECORDS SUMMARY | 2025-05-08 13:04 | XMS_ITS | Patient Health Record ---
Author Organization [facility] Address [address] [place] [address] Care Team Providers Care Nitrocellulose Operator Name Role Phone Oj DOBSON, Gigi Primary Care Provider Unavailabl e BillyGuera Unavailable [phone] Reason For Referral No Information Medications Medication SIG (Take, Route, Frequency, Duration) Notes Start Date End Date Status Flomax Active amLODIPine Besylate 10 MG Orally Active Lovastatin 20 MG Orally Act sandra Indomethacin 50 MG Orally N ot-Taking metFORMIN HCl 1000 MG Orally Active Losartan Potassium-HCTZ 100-25 MG Orally Active Immunizations Vaccine Route Administration Date Status Comme nts Influenza Unknown 02/23/2017 Refused pt refused Influenza Unknown 06/08/2017 Refused Pt has not got ten flu shot yet Social History Tobacco Use: Social History Observation Description Date Details (start date - stop date) Never Smoker NA - NA Tobacco Use/Smoking Question Answer Notes Are you a: nonsmoker Additional Findings: Tobacco Non-User Current no n-smoker Alcohol Screen Question Answer Notes Did you have a drink containing alcohol in the p ast year? No Points 0 Interpretation Negative Tobacco use other than smoking: Question Answer Notes Are you an other tobacco user? No Problems Problem Type SNOMED Code ICD Code Onset Dates Problem Status W/U Status Risk Notes Problem Localized, primary osteoarthritis of the ankle and/or foot (386803932) Primary osteoarthritis, right ankle and foot (M19.071) Active confirmed Problem Localized, primary osteoarthritis of the ankle and/or foot (735425961) Primary osteoarthritis, left ankle and foot (M19.072) Active confirmed Problem Acquired hammer toe of right foot (4977179303668957) Other hammer toe(s) (acquired), right foot (M20.41) Active confirmed Problem Acquired hammer toe of left foot (8307837788969023) Other hammer toe(s) (acquired), left foot (M20.42) Active confirmed Problem Type II diabetes mellitus without complication (009786479) Type 2 diabetes mellitus without complications (E11.9) Active confirmed Plan Of Treatment Pending Test Test Name Order Date [id number] NAIL, 6 OR MORE 02/23/2017 [id number] NAIL, 6 OR MORE 06/08/2017 [id number] SKIN LESIONS, 2 TO 4 06/08/20 17 Insurance Providers Payer Name Payer Address Payer Phone Subscriber Number Group Number Insured Name Patient Relationship to Insured Coverage Start Date Coverage End Date Chris [place] [address] [place] [phone] [id number] Shyla Puckett Spouse - patient is the spouse of the insured Medical (General) History Medical History History ICD Code Arthritis Back,Hip,and Knee pain Broken bones Cholesterol Diabetic Heart disease Hiatal hernia Hypertension Lyme disease Chicken pox Joint implants/screws Sciatica Warts Ankylosing spondylitis Scoliosis Surgical History Surgery Date(Month/Year) lap band 2007 hip replacement 2014 hip surgery 1988 Hiatal Hernia repair
--- OUTSIDE RECORDS SUMMARY | 2025-05-08 13:04 | XMS_ITS | Encounter Summary ---
Author Organization [facility] Address [facility] [address] [place] [address] Phone Care Team Providers Care Pourer Crane Ladle Name Role Phone Gigi Mcwilliams Primary Care Provider [phone] Reason for Referral * Outpatient Procedure - Closed Specialty Diagnoses / Procedures Referred By Riri yang Referred To Contact Diagnoses TIA (transient ischemic attack) Procedures Adult Echo TTE Lalito Turner MD Phone: tel: fax: mailto:[email or web address] Referral ID Status Reason Start Date Expiration Date Visits Re quested Visits Authorized [id number] Closed 02/09/2019 02/09/2020 1 1 Encounter Details Date Type Department Care Team (Latest Contact Info) Description 02/09/2019 Transcribe Orders Virtual Department [address] [place] [address] Lalito Turner MD [address] [place] [address], [address] [place] [address] [email or web address] TIA (transient ischemic attack) (Primary Dx) Social [...] Description 05/01/2025 Procedure Pass Event Monitor [address] [place] [address] 05/14/2025 11:30 AM EDT Hospital Encounter Non-Invasive Cardiology [address] [place] [address] Angy Jane PA-C [address] [place] [address] [email or web address] 05/29/2025 1:00 PM EDT Appointment Event Monitor [address] [place] [address] Angy Jane PA-C [address] [place] [address] [email or web address] 06/26/2025 11:30 AM EDT Office Visit [facility] [address] 3[address] Floor, [address] [place] [address] Angy Jane PA-C [address] [place] [address] [email or web address] 07/06/2025 11:00 AM EST Office Visit [facility] [address] [place] [address] Stacy Hendrickson MD 22 [facility], 1st [place] [address] documented as of this encounter Results * [...] Heart Ultrasound Narrative 03/10/2019 1:52 PM EDT There is mild concentric left ventricular hypertrophy. Left ventricular systolic function is normal. There are no segmental left ventricular wall motion abnormalities noted. The estimated ejection fraction is 63% (Normal 50-75%) Mild aortic regurgitation Trace mitral regurgitation Compared to a prior report from 06/15/2012, [...] prior report from 06/15/2012, no important changes. us Lalito Turner MD CV ECHO ORDERABLES Final Res ult documented in this encounter Visit Diagnoses Diagnosis [...] documented as of this encounter Care Teams Pourer Crane Ladle Relationship Specialty Start Date End Date Gigi Mcwilliams DO [email or web address] PCP - General Internal Medicine 09/28/14 documented as of this encounter Additional Source Comments The information contained in this document represents components of the legal health record. It is not the complete legal health record.[facility]
--- OUTSIDE RECORDS SUMMARY | 2025-05-08 13:04 | XMS_ITS | Encounter Summary ---
Author Organization [facility] Address [facility] [employer] [facility] [address] [place] [address] Phone Care Team Providers Care Baggage Clerk Name Role Phone Gigi Mcwilliams DO Primary Care Provider [phone] Encounter Details Date Type Department Care Team (Late st Contact Info) Description 08/17/2017 Ancillary Orders Non-Invasive Cardiology [address] [place] [address] Monse Don PA-C [address] [place] [address] Chest pain on exertion Social History Tobacco [...] Description 05/01/2025 Procedure Pass Event Monitor [address] [place] [address] 05/14/2025 11:30 AM EDT Hospital Encounter Non-Invasive Cardiology [address] [place] [address] Angy Jane PAClemenciaC [address] [place] [address] [email or web address] 05/29/2025 1:00 PM EDT Appointment Event Monitor [address] [place] [address] Angy Jane PA-C [address] [place] [address] [email or web address] 06/26/2025 11:30 AM EDT Office Visit [facility] [address] [facility] 3rd Floor, [address] [place] [address] Angy Jane PA-C [address] [place] [address] [email or web address] 07/06/2025 11:00 AM EST Office Visit [facility] [address] [place] [address] Stacy Hendrickson MD 22 [facility], 1st [place] [address] documented as of this encounter Results * NC Stress Result for Nuclear Stress Test (NWH) (08/17/2017 10:52 AM EST) Max BP Systolic 182 mmHg [facility] Max BP Diastolic 64 mmHg [facility] Max HR 139 BPM [facility] Resting HR 67 BPM [facility] Resting BP Systolic 140 mmHg [facility] Resting BP Diastolic 64 mmHg [facility] Peak METS 7.7 METS [facility] Peak HR 136 BPM [facility] Anatomical Region Laterality Modality Heart Other 08/17/2017 [...] and will be reported separately. Nevin Puckett ETCHED CIRCUIT PROCESSOR with Dr Alfaro November Florencia OGLESBY CV NM CARDIAC Final [...] documented as of this encounter Care Teams Baggage Clerk Relationship Specialty Start Date End Date Gigi Mcwilliams DO [email or web address] PCP - General Internal Medicine 09/28/14 documented as of this encounter Additional Source Comments The information contained in this document represents components of the legal health record. It is not the complete legal health record.[facility]
--- OUTSIDE RECORDS SUMMARY | 2025-05-08 13:04 | XMS_ITS | Encounter Summary ---
Author Organization [facility] Address [address] [place] [address] Phone Care Team Providers Care Loom Fixer Apprentice Name Role Phone Gigi Mcwilliams Primary Care Provider [phone] Encounter Details Date Type Department Care Team (Late st Contact Info) Description 09/08/2021 Telephone Page365 [facility] [address] [place] [address] Stacy Hendrickson MD [address] [facility], 1st [place] [address] [email or web address] Social History Tobacco Use Types Packs/Day Years [...] week after injecting Bydureon. Ozempic approved by [facility] documented in this encounter Plan of Treatment Upcoming Encounters Date Type Department Care Team (Latest Contact Info) Description 05/01/2025 Procedure Pass Event Monitor [address] [place] [address] 05/14/2025 11:30 AM EDT Hospital Encounter Non-Invasive Cardiology [address] [place] [address] Angy Jane PA-C [address] [place] [address] [email or web address] 05/29/2025 1:00 PM EDT Appointment Event Monitor [address] [place] [address] Angy Jane PA-C [address] [place] [address] [email or web address] 06/26/2025 11:30 AM EDT Office Visit [facility] [address], [address] [place] [address] Angy Jane PA-C [address] [place] [address] [email or web address] 07/06/2025 11:00 AM EST Office Visit [facility] [address] [place] [address] Stacy Hendrickson MD [address] [facility], 1st [place] [address] documented as of this encounter Visit Diagnoses [...] documented as of this encounter Care Teams Loom Fixer Apprentice Relationship Specialty Start Date End Date Gigi Mcwilliams [email or web address] PCP - General Internal Medicine 09/28/14 documented as of this encounter Additional Source Comments The information contained in this document represents components of the legal health record. It is not the complete legal health record.[facility]
--- OUTSIDE RECORDS SUMMARY | 2025-05-08 13:04 | XMS_ITS | Encounter Summary ---
Author Organization [facility] Address [facility] [employer] [facility] [address] [place] [address] Phone Care Team Providers Care Avionic Technician Name Role Phone Gigi Mcwilliams DO Primary Care Provider [phone] Encounter Details Date Type Department Care Team (Late st Contact Info) Description 10/28/2018 Ancillary Orders Virtual Department [address] [place] [address] Monse Don PA-C [address] [place] [address] Left knee pain, unspecified chronicity; Diplopia Social [...] Description 05/01/2025 Procedure Pass Event Monitor [address] [place] [address] 05/14/2025 11:30 AM EDT Hospital Encounter Non-Invasive [place] [address] Angy Jane PA-C [address] [place] [address] [email or web address] 05/29/2025 1:00 PM EDT Appointment Event Monitor [address] [place] [address] Angy Jane PA-C [address] [place] [address] [email or web address] 06/26/2025 11:30 AM EDT Office Visit [facility] [address] [facility] 3rd Floor, [address] [place] [address] Angy Jane PA-C [address] [place] [address] [email or web address] 07/06/2025 11:00 AM EST Office Visit [facility] [address] [place] [address] Stacy Hendrickson MD 22 [facility], 1st [place] [address] documented as of this encounter Visit Diagnoses [...] documented as of this encounter Care Teams Avionic Technician Relationship Specialty Start Date End Date Gigi Mcwilliams DO [email or web address] PCP - General Internal Medicine 09/28/14 documented as of this encounter Additional Source Comments The information contained in this document represents components of the legal health record. It is not the complete legal health record.[facility]
--- OUTSIDE RECORDS SUMMARY | 2025-05-08 13:04 | XMS_ITS | Encounter Summary ---
Author Organization [facility] Address [address] [facility] [address] [place] [address] Phone Care Team Providers Care Reception Centre Manager Name Role Phone Gigi Mcwilliams Primary Care Provider [phone] Encounter Details Date Type Department Care Team (Late st Contact Info) Description 07/04/2020 Ancillary Orders Non-Invasive Cardiology [address] [place] [address] Tuan Cortez DO [address] [facility] [address] [place] [address] [email or web address] Chest pain, unspecified type Social History Tobacco [...] Description 05/01/2025 Procedure Pass Event Monitor [address] [place] [address] 05/14/2025 11:30 AM EDT Hospital Encounter Non-Invasive Cardiology [address] [place] [address] Angy Jane PA-C [address] [place] [address] [email or web address] 05/29/2025 1:00 PM EDT Appointment Event Monitor [address] [place] [address] Angy Jane PA-C [address] [place] [address] [email or web address] 06/26/2025 11:30 AM EDT Office Visit [facility] [address] [facility] 3rd Floor, [address] [place] [address] Angy Jane PA-C [address] [place] [address] [email or web address] 07/06/2025 11:00 AM EST Office Visit [facility] [address] [place] [address] Stacy Hendrickson MD [address] [facility], 1st [place] [address] [email or web address] documented as of this encounter Results * NC Stress Result for Nuclear Stress Test (07/04/2020 12:29 PM EST) Max BP Systolic 224 mmHg [facility] Max HR 141 BPM [facility] Resting HR 80 BPM [facility] Resting BP Systolic 142 mmHg [facility] Resting BP Diastolic 70 mmHg [facility] Peak METS 4.7 METS [facility] Peak HR 133 BPM [facility] Anatomical Region Laterality Modality Heart Other 06/05/2020 [...] pending and will be reported separately. Shiela Mays, RETAIL WORKER with Dr. Delgado. Tuan Cortez DO CV NM CARDIAC Final Result documented in [...] documented as of this encounter Care Teams Reception Centre Manager Relationship Specialty Start Date End Date Gigi Mcwilliams DO PCP - General Internal Medicine 09/28/14 documented as of this encounter Additional Source Comments The information contained in this document represents components of the legal health record. It is not the complete legal health record.[facility]
--- OUTSIDE RECORDS SUMMARY | 2025-05-08 13:04 | XMS_ITS | Encounter Summary ---
Author Organization [facility] Address [facility] [employer] [facility] [address] [place] [address] Phone Care Team Providers Care Electrical Instrument Maker Name Role Phone Gigi Mcwilliams DO Primary Care Provider [phone] Encounter Details Date Type Department Care Team (Late st Contact Info) Description 08/17/2017 Ancillary Orders Non-Invasive Cardiology [address] [place] [address] Monse Don PA-C [address] [place] [address] Chest pain on exertion Social History Tobacco [...] Description 05/01/2025 Procedure Pass Event Monitor [address] [place] [address] 05/14/2025 11:30 AM EDT Hospital Encounter Non-Invasive Cardiology [address] [place] [address] Angy Jane PAClemenciaC [address] [place] [address] [email or web address] 05/29/2025 1:00 PM EDT Appointment Event Monitor [address] [place] [address] Angy Jane PA-C [address] [place] [address] [email or web address] 06/26/2025 11:30 AM EDT Office Visit [facility] 22 [facility] 3rd Floor, [address] [place] [address] Anyg Jane PA-C [address] [place] [address] [email or web address] 07/06/2025 11:00 AM EST Office Visit [facility] [address] [place] [address] Stacy Hendrickson MD 22 [facility], 1st [place] [address] [email or web address] documented as of this encounter Visit Diagnoses [...] documented as of this encounter Care Teams Electrical Instrument Maker Relationship Specialty Start Date End Date Gigi Mcwilliams DO PCP - General Internal Medicine 09/28/14 documented as of this encounter Additional Source Comments The information contained in this document represents components of the legal health record. It is not the complete legal health record.[facility]
--- OUTSIDE RECORDS SUMMARY | 2025-05-08 13:04 | XMS_ITS | Encounter Summary ---
Author Organization [facility] Address [facility] [employer] [facility] [address] [place] [address] Phone Care Team Providers Care Economic Development Manager Name Role Phone Gigi Mcwilliams Primary Care Provider [phone] Encounter Details Date Type Department Care Team (Late st Contact Info) Description 05/27/2020 Procedure Pass [facility] [address] [place] [address] Social History Tobacco Use Types Packs/Day Years [...] Description 05/01/2025 Procedure Pass Event Monitor [address] [place] [address] 05/14/2025 11:30 AM EDT Hospital Encounter Non-Invasive Cardiology [address] [place] [address] Angy Jane PA-C [address] [place] [address] [email or web address] 05/29/2025 1:00 PM EDT Appointment Event Monitor [address] [place] [address] Angy Jane PA-C [address] [place] [address] [email or web address] 06/26/2025 11:30 AM EDT Office Visit [facility] 22 [facility] 3rd Floor, [address] [place] [address] Angy Jane PA-C [address] [place] [address] [email or web address] 07/06/2025 11:00 AM EST Office Visit [facility] [address] [place] [address] Stacy Hendrickson MD 22 [facility], 1st [place] [address] documented as of this encounter Visit Diagnoses [...] documented as of this encounter Care Teams Economic Development Manager Relationship Specialty Start Date End Date Gigi Mcwilliams DO [email or web address] PCP - General Internal Medicine 09/28/14 documented as of this encounter Additional Source Comments The information contained in this document represents components of the legal health record. It is not the complete legal health record.[facility]
[2025-05-08 13:52] LABS: Alanine Aminotransferase 40 U/L (0-40); Albumin Level 4.6 g/dL (3.5-5.0); Alkaline Phosphatase 82 U/L (39-117); Anion Gap 13 (12-20); Aspartate Amino Transferase 36 U/L (5-37); Blood Urea Nitrogen 14 mg/dL (9-16); Calcium 8.7 mg/dL (8.4-10.2); Carbon Dioxide 25 mmol/L (22-29); Chloride 106 mmol/L (96-108); Cholesterol 150 mg/dL (<200); Estimated Glomerular Filt Rate > 60; HDL Cholesterol 29 mg/dL (>40); Potassium 3.5 mmol/L (3.3-5.1); Sodium 140 mmol/L (135-145); Total Protein 7.1 g/dL (6.5-8.0); Triglycerides 184 mg/dL (<150)
== END 2025-05-08 10:50 | disposition home or self-care (01) ==
LOC: HO.MANLDS 10:49
PROVIDERS: Visit Provider Internal Medicine
DX: E78.5 Hyperlipidemia, unspecified (principal)
CPT/HCPCS: 36415; 80053; 80061

== ENCOUNTER → 2025-06-15 11:03 | Outpatient (REF) | payer OTHER, SELFPAY ==
--- OUTSIDE RECORDS SUMMARY | 2025-06-15 13:45 | XMS_ITS | Data Portability ---
Author Organization [facility], Telehealth Patient Home Address [address] [place] [address] Assessment Encounter Date Assessment Date Assessment LastModified by Organization Details LastModified Time 01/08/2025 01/08/2025 Patient presented for medication refill. Patient tolerating medication well at current dose without adverse effects. Refilled as below. Discussed plan with patient, who expressed understanding . Follow up as noted below. [email or web address] Not available 01/08/2025 12:22:37 Plan of Treatment Reminders Order Date Submit Date Provider Last Modified By Organization Details Last Modified Time Details Appointments None recorded. Lab None recorded. Referral cardiologis t referral 2024 025 [email or web address] Tima Sheikh MD, [address], [place], [address], 13:23:09 physical therapist referral 2024 025 [email or web address] 110 [facility] - [address], [address], 08:45:47 Procedures None recorded. Surgeries None recorded. Imaging holter monitor 2024 025 [email or web address] [facility], [address] [place] [address] , [place], [address], 13:23:09 CT, lumbar spine, w/o contrast 2024 025 [email or web address] 110 [facility], [facility], [place], [address], 09:36:25 Medication Orders sulfamethox azole 800 mg-trimetho prim 160 mg tablet 2024 025 [facility] #[id number], [address] [facility] [address] [place], [address], 05:01:26 oxycodone 5 mg tablet 2024 025 [facility] #[id number], [address] [place], [address], 05:01:24 Patient TargetsNo targets recorded. Patient InstructionsNo instructions recorded. Reason for Referral Physical Therapist Referral for Degeneration of lumbosacral intervertebral disc Referring Physician: Charleen Larson, Internal Medicine, Encounter Date: 05/08/2025 Sales Communications Manager Referral for Pe rmanent atrial fibrillation need new sleep manager Referring Physician: Charleen Larson, Internal Medicine, Encounter Date: 05/28/2025 Results Created Date Observation Date Name Description Value Unit Range Abnormal Flag Note LastModifiedBy Organization Detail LastModifiedTime 05/16/2005/14/2025 NM, myoca rdial perfu coty scan No observ ation record ed. [email or web address] [facility] [address], [place], [address], 05/16/2025 13:32:16 05/25/2005/18/2025 CT, lumba r spine , w/o contr ast No observ ation record ed. [email or web address] [facility] [address] [address], [place], [address], 05/25/2025 11:09:05 Result Notes None recorded. Problems Name Problem SNOMED Code Status Onset Date Resolution Date Notes Provider Name and Address Organization Details Recorded Time [facility] hyperten coty 80601934 Active 2017 [facility] 4 11:58:55 Hypercho lesterol emia 04240341 Active 2017 [facility] 4 11:58:54 Obesity 411817463 Active 2017 [facility] 4 11:58:54 Methicil brendne resistan t Staphylo coccus aureus infectio n 113196709 Active 2017 right forearm Not Available [facility] 1 05:51:09 Low back strain 098103967 Active 2017 bulg disk Not Available [facility] 1 05:51:09 Left ventricu lar hypertro phy 35316550 Active 2017 Aicha davidson [facility] 4 11:58:55 Benign prostati c hyperpla calvin 977891430 Active 2017 obstruct ion Not Available [facility] 1 05:51:09 Gallston e 340294416 Active 2017 Not Available [facility] 1 05:51:09 Gilbert' s syndrome 70601683 Active 2017 Not Available [facility] 1 05:51:09 Impaired fasting glycemia 948973716 Completed 201711/28/2018 Ava Bray NP, [address] [place] [address], [address] 9 15:15:45 History of hernia repair 0961697507 9109 Active 2017 Not Available [facility] 1 05:51:09 Total replacem ent of hip Active 2017 Left Aicha davidson [facility] 4 11:58:54 Type 2 diabetes mellitus 96173028 Active 2017 Aicha davidson [facility] 4 11:58:54 Lyme disease 23509991 Active 2017 28 days doxy Not Available [facility] 1 05:51:09 Gonorrhe a 28968630 Active 2017 dx @ 12/08/16 chlamadi a neg Not Available [facility] 1 05:51:09 Rupture of quadrice ps tendon 8352147 Active 2021 SABINE MARTINEZ [address] [place] [address], [address], [facility] 2 16:34:18 Abscess 924300768 Active 2021 SABINE MARTINEZ [address] [place] [address], [address], [facility] 5 11:35:06 COVID-19 825639292 Active 2021 SABINE MARTINEZ [address] [place] [address], [address], [facility] 2 09:56:19 Abscess of groin 01384427 Active 2021 SABINE MARTINEZ [address] [place] [address], [address], [facility] 2 10:53:48 Pain of left knee joint 3668596665 01724 Active 2021 SABINE MARTINEZ [address] [place] [address], [address], [facility] 2 11:16:40 Hyperlip idemia 07346294 Active 2021 Aicha Arguelles [facility] 4 11:58:54 Bilatera l tinnitus 9437075896 102 Active 2021 SABINE MARTINEZ [address] [place] [address], [address], [facility] 2 11:05:18 Tendinit is of left quadrice ps tendon 7500610854 4302143 Active 2022 SABINE MARTINEZ [address] [place] [address], [address], [facility] 3 10:56:29 Mark hematuri a 941582802 Active 2022 SABINE MARTINEZ [address] [place], [address], [facility] 3 10:49:32 Pain of right shoulder joint 6867460001 6014358 Active 2022 SABINE MARTINEZ [address] [place], [address], [facility] 3 11:00:58 Hemosper dell 28766211 Active 2022 SABINE MARTINEZ [address] [place], [address], [facility] 3 11:31:11 Low back pain 655093761 Active 2022 SABINE MARTINEZ [address] [place], [address], [facility] 3 11:36:47 Cervical spondylo sis 951814156 Active 2022 SABINE MARTINEZ [address] [place] [address], [address], [facility] 3 11:41:11 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 584121055 Active 2022 SABINE MARTINEZ [address] [place] [address], [address], [facility] 3 11:43:14 Sleep apnea 86434912 Active 2023 SABINE MARTINEZ [address] [place] [address], [address], [facility] 4 13:42:43 Atrial fibrilla tion 13974813 Active 2023 SABINE MARTINEZ [address] [place] [address], [address], [facility] 4 16:41:43 Lumbago with sciatica 822462753 Active 2023 SABINE MARTINEZ [address] [place] [address], [address], [facility] 4 08:57:24 Paroxysm al atrial fibrilla tion 153729461 Active 2024 SABINE MARTINEZ [address] [place] [address], [address], [facility] 5 14:02:47 Ankylosi ng spondyli tis 1907830 Active 2024 SABINE MARTINEZ [address] [place] [address], [address], [facility] 5 12:24:29 Hypokale dell 73642720 Active 2024 SABINE MARTINEZ [address] [place] [address], [address], [facility] 5 13:20:03 Degenera tion of lumbosac ral interver tebral disc 97540575 Active 2024 SABINE MARTINEZ [address] [place] [address], [address], [facility] 5 11:56:37 Cellulit is caused by Staphylo coccus aureus 157650096 Active 2024 SABINE MARTINEZ [address] [place] [address], [address], [facility] 5 11:59:22 Permanen t atrial fibrilla tion 702497226 Active 2024 SABINE MARTINEZ [address] [place] [address], [address], [facility] 5 11:38:01 Notes:Some problems listed i n Documents: #[id number], #[id number] could not be added to this patient's chart. Please review these documents and add these problems to the patient's chart manually as needed. Problem Notes None recorded. Procedures Surgical History Date Name Laterality Status Provider Name and Address Organization Details Recorded Time 06/01/20 25 WOUND CARE completed SABINE MARTINEZ [address] [place] [address], [address], [facility] 06/01/2025 11:57:42 05/17/20 24 Colonoscopy completed Guilherme Mcwilliams [facility] 05/17/2024 12:15:07 04/07/20 22 I&D completed SABINE MARTINEZ [address] [place], [address], [facility] 04/07/2022 16:59:52 Imaging Results None recorded. Procedure Notes None recorded. Medical Equipment None Reported. Allergies Allergen ID Allergen Name Allergen Category Reaction Reaction Severity Criticality Documentation Date Start Date Code Code System Note Provider Name and Address Organization Details Recorded Time 1531 Lipitor medicatio n myalgias (muscle pain) Not available Not available 02/01/2018 04485 5 RxNorm Ana Maria davidson [facility] 8 08:17:07 Medications Name Sig Start Date [...] 1 TABLET DAILY FOR 4 DAYS DIRECTED 01/08 completed Not Available Not Available Not Available acetazolami de 125 mg tablet TAKE 1 TABLET BY MOUTH TWICE A DAY STARTING 24 HRS BEFORE OR ON DAY OF ASCENT active Not Available Not Available No t Available metoprolol succinate ER 50 mg tablet,exte nded release 24 hr TAKE 1/2 TABLET BY MOUTH DAILY active Not Available [...] tablet TAKE 1 TABLET BY MOUTH DAILY 2024 active Not Available Not Available Not Avai lable glipizide ER 5 mg tablet, extended release [...] every 12 hours by oral route for 10 days. 06/09 completed Not Available Not Available Not Available aspirin 81 mg tablet,leah yed release TAKE 1 TABLET (81 MG TOTAL) BY MOUTH EVERY MORNING & EVERY EVENING FOR 28 DAYS. 08/13 completed Not Available Not Available Not Available losartan 100 mg-hydrochl orothiazide 25 mg tablet TAKE 1 TABLET BY MOUTH DAILY 2024 active Not Available Not Available Not Avai lable oxycodone-a cetaminophe n 5 mg-325 mg tablet Take 1 tablet every 6 hours by oral route for 7 days. 08/03 completed Not Available Not Available Not Available tamsulosin 0.4 mg capsule TAKE 2 CAPSULES DAILY 08/13 completed Not Available Not Available Not Available amlodipine 10 mg tablet TAKE 1 TABLET BY MOUTH DAILY 2024 active Not Available Not Available Not Avai lable cephalexin 500 mg capsule TAKE 1 CAPSULE [...] TAKE 2 TABLETS BY MOUTH TWICE DAILY 2024 active Not Available Not Available Not Avai lable doxycycline hyclate 100 mg tablet Take 2 tablets every day by oral route for 7 days. 05/29 completed Not Available Not Available Not Available naproxen 500 mg tablet 08/08 completed Not Available Not Available Not Available oxycodone 5 mg tablet Take 1 tablet every 4-6 hours by oral route as directed for 7 days. 05/22 completed Not Available Not Available Not Available [...] 236 gram-22.74 gram-6.74 gram-5.86 gram oral solution 01/08 completed Not Available Not Available Not Available Senexon-S 8.6 mg-50 mg tablet TAKE 1 TABLET BY MOUTH EVERY MORNING & EVERY EVENING WHILE TAKING NARCOTICS FOR 30 DAYS. active Not Available Not Available No t Available Xarelto 20 mg tablet TAKE 1 TABLET BY MOUTH DAILY 2024 active Not Available Not Available Not Avai lable Eliquis 5 mg tablet TAKE 1 TABLET BY MOUTH TWICE A DAY 01/01 completed Not Available Not Available Not Available Trulicity 1.5 mg/0.5 mL subcutaneou s [...] Not Available Not Available No t Available Byfritz BCise 2 mg/0.85 mL subcutaneou s auto-inject or INJECT 2 MG UNDER THE SKIN EVERY 7 DAYS. 11/17 completed Not Available Not Available Not Available FreeStyle Mitchel 2 Sensor kit 1 EACH BY MISCELLAN EOUS ROUTE EVERY 14 (FOURTEEN ) DAYS. 01/08 completed Not Available Not Available Not Available Ozempic 1 mg/dose (4 mg/3 mL) subcutaneou s pen injector INJECT 1 MG SC EVERY WEEK 01/08 completed Not Available Not Available Not Available Mounjaro 7.5 mg/0.5 mL subcutaneou s pen injector active Not Available Not Available Not Available Ozempic 0.25 mg or 0.5 mg (2 mg/3 mL) subcutaneou s pen injector 05/12 completed Not Available Not Available Not Available FreeStyle Mitchel 3 Plus Sensor device APPLY DIRECTED EVERY 15 DAYS active Not Available Not Available No t Available Lisette 2nd Gen Pen Needle 32 gauge x 5/32 INJECT 1 EACH UNDER THE SKIN DAILY. active Not Available Not Available No t Available Vitals Date Recorded Body height Body mass index (BMI) Body weight Heart rate Oxygen saturation Oxygen saturation in Arterial blood by Pulse oximetry Systolic And Diastolic Provider Name and Address Organization Details Last Updated DateTime 5 199.39 cm 40.5 kg/m2 570098. 21 g 70 /min 95 % 95 % 142/80 mm[Hg] [facility] 5 12:07:16 Date Recorded Body height Body mass index (BMI) Body weight Heart rate Oxygen saturation Oxygen saturation in Arterial blood by Pulse oximetry Systolic And Diastolic Provider Name and Address Organization Details Last Updated DateTime 5 199.39 cm 39.9 kg/m2 013357. 33 g 70 /min 98 % 98 % 130/70 mm[Hg] [facility] 5 11:31:12 Date Recorded Body height Body mass index (BMI) Body weight Heart rate Oxygen saturation Oxygen saturation in Arterial blood by Pulse oximetry Systolic And Diastolic Provider Name and Address Organization Details Last Updated DateTime 5 199.39 cm 39.9 kg/m2 236519. 33 g 80 /min 98 % 98 % 120/80 mm[Hg] [facility] 5 11:31:15 Date Recorded Body height Body mass index (BMI) Body weight Heart rate Oxygen saturation Oxygen saturation in Arterial blood by Pulse oximetry Systolic And Diastolic Provider Name and Address Organization Details Last Updated DateTime 5 199.39 cm 39.9 kg/m2 435309. 33 g 79 /min 98 % 98 % 128/68 mm[Hg] [facility] 5 11:16:25 Date Recorded Body height Body mass index (BMI) Body weight Heart rate Oxygen saturation Oxygen saturation in Arterial blood by Pulse oximetry Systolic And Diastolic Provider Name and Address Organization Details Last Updated DateTime 5 199.39 cm 39.9 kg/m2 345351. 33 g 70 /min 98 % 98 % 128/68 mm[Hg] [facility] 5 11:25:31 Social History Question Answer Notes LastModified by Organizat ion Details LastModified Time Tobacco Smoking Status Never Smoker Not Available [facility] 07/02/2020 03:36:24 What Was The Date Of Your Most Recent Tobacco Screening? 05/28/2025 Information not available 05/28/2025 Sex: Unknown Functional Status Question Answer Note LastModified by Organization D etails LastModified Time Do you or have you ever used any other forms of tobacco or nicotine? No [email or web address] Information not available 11/17/2022 Mental Status None recorded. Family History Nothing Reported. Medical History Condition Response Coronary Artery Disease N Gout N Other N Kidney Stones N Blood Diseases N Blood Transfusion N Breast Cancer N Lung Disease N Depression N COPD N Defects or Inherited Disease N Anxiety Disorder N Muscle, Joint, or Bone Problems N Obesity N Vision or Eye Problems N Arthritis N Infertility N Polyps N Mental Disorder N Cancer N Stroke N Varicosities N Endometriosis N Bladder or Kidney Problems N High Cholesterol N Liver Disease N Fibromyalgia N Headaches N Kidney Disease N Allergies/Hayfever N Heart Problems N Hospitalizations N Thyroid Problems N GI Problems N Eating Disorder N Skin Problems N Anemia N MRSA exposure N Constipation N Mental Illness N Diabetes N Ovarian Cancer N Seizures/Epilepsy N Tuberculosis N Congestive Heart Failure (CHF) N Eczema N Abuse/Domestic Violence N Diverticulitis N Asthma N Reflux/GERD N Hepatitis N Heart Disease N Pulmonary Embolism N Hypertension N Chicken Pox N Autism Spectrum Disorder (ASD) N Osteoporosis N Immunizations Vaccine Type Date Status Note Provider Nam e and Address Organization Details Recorded Time COVID-19, mRNA, LNP-S, PF, 30 mcg/0.3 mL dose 11/17/2020 completed April davidson [facility] 05/15/2022 14:43:22 COVID-19, mRNA, LNP-S, PF, 30 mcg/0.3 mL dose 12/08/2020 completed April davidson [facility] 05/15/2022 14:43:30 COVID-19, mRNA, LNP-S, PF, 100 mcg/0.5mL dose or 50 mcg/0.25mL dose 08/06/2021 completed April davidson [facility] 05/15/2022 14:43:40 Past Encounters Encounter ID Performer Location Encounter Start Date Encounter Closed Date Diagnosis/Indication Diagnosis SNOMED-CT Code Diagnosis ICD10 Code Diagnosis IMO Codes Diagnosis Note [id number] Gigi Mcwilliams [facility] [address] [facility] [place] [address] 02/01/2018 10:05:20 02/01/2018 11:34:46 Type 2 diabetes mellitus 15570748 E11.65 diet and exercise discussed a1c almost at goal on metformin + januvia states he will do eye exam Active or passive immunization 987673965 Z23 Essential hypertension 96656647 I10 on losart/hct + amlodipine Hypercholesterolemia 136 34314 E78.00 on lovastatin , near goal. improve diet to maintain Effects of high altitude 56884702 T70.20XA [id number] Gigi Mcwilliams [facility] [address] [facility] [address] 05/04/2018 10:11:41 05/04/2018 11:20:29 Type 2 diabetes mellitus 66787925 E11.65 diet and exercise discussed on metformin + januvia states he will do eye exam will check aic Essential hypertension 44397506 I10 on losart/hct + amlodipine good control Hypercholesterolemia 136 09923 E78.00 on lovastatin , near goal. improve diet to maintain Eczema 74042125 L30.9 vs psoriasis Allergic rhinitis 953405 04 J30.9 sore throat/itc hy throat likely related to PND, will take claritin and f/u if persistent [id number] Gigi Mcwilliams [facility] [address] [facility], [place] [address] 06/13/2018 10:13:35 06/13/2018 11:06:10 Pain of joint of wrist 524075492 M25.539 unclear from history/cp e underlying etiology most likely tendinosis will continue conservati ve treatment as well as trial of pred Psoriasis 8340998 L40.9 more likely than eczema , though it has improved with use of clobetasol pred for above will likely help with this rash, we will continue to monitor Type 2 desmond betes mellitus 45865361 E11.65 will monitor sugars with pred above [id number] Gigi Mcwilliams [facility] [address] [facility],[place] [address] 08/03/2018 10:49:40 08/03/2018 12:23:26 Type 2 diabetes mellitus 60960014 E11.65 A1c has worsened poor diet and exercise though on metformin ER 500 BID + januvia 100 mg qd would like to try to do lifestyle changes will consider additional meds at fu if needed Essential hypertension 52033307 I10 on losart/hct + amlodipine good control Mixed hyperlipidemia 267 745156 E78.2 increased based on his labs in april Hypercholesterolemia 136 16299 E78.00 on lovastatin , near goal. improve diet to maintain Eczema 61895318 L30.9 vs psoriasis recommend derm consult Body mass index 40+ - severely obese 535124034 Z68.41 healthy diet and exercise weight loss recommende d [id number] Gigi Mcwilliams [facility] [address] [facility],[place] [address] 10/28/2018 09:34:08 10/28/2018 11:02:12 Type 2 diabetes mellitus 44537381 E11.65 needs to get a1c done Essential hypertension 50107288 I10 mildly elevated today will monitor in setting of low bp reading Mixed hyperlipidemia 267 533275 E78.2 increased based on his labs in april, due today Hypercholesterolemia 136 04821 E78.00 on lovastatin , near goal. improve diet to maintain Eczema 84940242 L30.9 vs psoriasis recommend derm consult once again Body mass index 40+ - severely obese 624485853 Z68.41 healthy diet and exercise weight loss recommende d Pain in left knee 919521 1817 31881 M25.562 pain consistent with arthritis will get imaging and conservati ve tx. if pain persists will try PT or ortho rest/ice/b race/nsaid s Diplopia 24226772 H53.2 has seen optometris t with corrective glasses, but would like to check imaging of brain for vascular or mass effects Benign pro static hyperplasia 516873198 N40.0 dx'd by uro in past would like to restart flomax [id number] Gigi Mcwilliams DO [facility] [address] [facility],[place] [address] 11/28/2018 14:55:27 11/29/2018 14:36:47 Computed tomography of brain abnormal 269274246 R93.0 Type 2 desmond betes mellitus 16607594 E11.9 f/u 1 month Obesity 361687221 E66.9 Essential hypertension 10975805 I10 Hypercholesterolemia 136 96659 E78.00 Osteoarthr itis of knee 187301533 M17.0 discussed benefits weight loss [id number] Gigi Mcwilliams DO [facility] [address] [facility],[place] [address] 02/10/2019 11:16:27 02/10/2019 13:59:22 Type 2 diabetes mellitus 76980955 E11.65 a1c 8.2, down from 10.3 still need to work on diet Essential hypertension 05367098 I10 mildly elevated today will monitor in setting of low bp reading Mixed hyperlipidemia 267 818393 E78.2 will check for next visit on lovastatin , near goal. improve diet to maintain Eczema 98321303 L30.9 vs psoriasis Body mass index 40+ - severely obese 532391724 Z68.41 healthy diet and exercise weight loss recommende d Diplopia 25418623 H53.2 has f/u with neuro had already seen opth in the past Benign pro static hyperplasia 520228316 N40.0 seen urology [id number] Gigi Mcwilliams [facility] [address] [facility],[place] [address] 03/06/2019 11:43:30 03/06/2019 12:36:23 Cervical lymphadenopathy 862694614 R59.0 no enlargemen t palpable today reassuranc e Essential hypertension 27941331 I10 stable [id number] Gigi Mcwilliams [facility] [address] [facility],[place] [address] 05/10/2019 11:21:24 05/10/2019 12:23:38 Hypercholesterolemia 25530358 E78.00 on lovastatin , near goal. improve diet to maintain Obesity 792836504 E66.9 Type 2 desmond betes mellitus 38685145 E11.65 a1c 8.1, down from 10.3 still working on diet Essential hypertension 15137499 I10 stable [id number] Gigi Mcwilliams [facility] [address] [facility],[place] [address] 05/10/2019 11:33:16 05/10/2019 11:51:50 Hypercholesterolemia 17263834 E78.00 on lovastatin , near goal. improve diet to maintain Type 2 desmond betes mellitus 66503775 E11.65 a1c 8.1, down from 10.3 still working on diet Essential hypertension 48304339 I10 stable [id number] Gigi Mcwilliams [facility] [address] [facility],[place] [address] 08/08/2019 11:04:01 08/08/2019 11:53:15 Mixed hyperlipidemia 645488220 E78.2 will check for next visit on lovastatin , near goal. improve diet to maintain Hypercholesterolemia 136 57912 E78.00 on lovastatin , near goal. improve diet to maintain Type 2 desmond betes mellitus 08041988 E11.65 a1c 8.1 in sept consider glipizide vs trulicity pend a1c control Essential hypertension 71389308 I10 stable Benign pro static hyperplasia 728488050 N40.0 seen urology [id number] Gigi Mcwilliams [facility] [address] [facility] [address],[place] [address] [place] [address] 11/07/2019 11:13:10 11/07/2019 12:06:36 Type 2 diabetes mellitus 71119392 E11.65 a1c 9.8 in dec will see a1c now that he has started trulicity Essential hypertension 90650815 I10 not well controlled would like to monitor BP at home and will report if BP remains above 140/80 likely will add metoprolol if still elevated Body mass index 40+ - severely obese 126947410 Z68.41 healthy diet and exercise weight loss recommende d Chest pain on exertion 44811582 R07.89 [id number] Gigi Mcwilliams [facility] [address] [facility],[place] [address] 02/06/2020 11:14:08 02/06/2020 13:52:33 Type 2 diabetes mellitus 78706845 E11.9 doing well on diet and exercise a1c is down Essential hypertension 06962444 I10 stable, BP is leveling out gets lower numbers at home [id number] Gigi Mcwilliams DO [facility] Internal Medicine [address] [facility] [address],[place] [address] 06/04/2020 11:17:09 06/04/2020 11:40:54 Pain in left knee [id number] 21216 M25.562 will set up for ortho eval Type 2 desmond betes mellitus 40245696 E11.9 had a problem with metformin dosage had to come down on it due to tolerabili ty, A1c therefore came up will work on dosing and med adjustment [id number] Gigi Mcwilliams [facility] [address] [facility] [address] [address] 11/05/2020 09:52:49 11/05/2020 10:33:27 Type 2 diabetes mellitus 45950054 E11.9 the patient will have repeat bw done today and will fu with results Hypercholesterolemia 136 29637 E78.00 will recheck BW Essential hypertension 06637583 I10 stable, BP is leveling out, much lower than last time gets lower numbers at home Atypical chest pain 1025 15271 R07.89 will send to new cardiologi for fu, needs to have angiogram done Benign pro static hyperplasia 970803767 N40.0 will recheck his PSA [id number] Gigi Mcwilliams DO [facility] Internal Medicine [address] [facility] [address],[place] [address] 02/05/2021 11:16:06 02/05/2021 11:59:40 Hypercholesterolemia 82740162 E78.00 will recheck BW Type 2 desmond betes mellitus 72022860 E11.65 A1c is better, also has endo fu Body mass index 40+ - severely obese 238863613 Z68.41 discussed continuing working on diet and exercise Essential hypertension 99686166 I10 stable, BP is leveling out, much lower than last time gets lower numbers at home [id number] Gigi Mcwilliams DO [facility] Internal Medicine [address] [facility] [address],[place] [address] 05/20/2021 08:07:14 05/20/2021 16:36:08 Essential hypertension 87607203 I10 stablelow numbers at home which is good Type 2 desmond betes mellitus 80540205 E11.65 A1c is better, also has endo fu for medication adjustment [id number] Gigi Mcwilliams DO [facility] Internal Medicine [address] [facility] [address],[place] [address] 10/28/2021 10:26:10 10/29/2021 10:15:55 Hypercholesterolemia 26953311 E78.2 will recheck BW Type 2 desmond betes mellitus 00633563 E11.65 A1c is better, also has endo fu for medication adjustment Essential hypertension 50731174 I10 stablelow numbers at home which is good Body mass index 40+ - severely obese 702545341 Z68.41 discussed continuing working on diet and exercise Benign pro static hyperplasia 118946888 N40.0 discussed switching to doxazosin from tamsulosin , will hold that for now [id number] SABINE MARTINEZ [facility] Internal Medicine [address] [facility] [address],[place] [address] 04/07/2022 16:21:32 04/07/2022 17:04:22 Rupture of quadriceps tendon 8214169 S76.192A will call me with info for ortho who he want to see Abscess 843143879 L02.21 2 will start on keflex [id number] Gigi Mcwilliams, [facility] [address] [facility],[place] [address] 05/19/2022 10:26:00 05/19/2022 11:02:51 Hypercholesterolemia 79323028 E78.2 will recheck BW Type 2 desmond betes mellitus 56715213 E11.65 A1c is better, also has endo f/u for medication adjustment Essential hypertension 82714841 I10 stablelow numbers at home which is good Abscess of groin 3558955 9 L02.214 will f/u patient on Wednesday [id number] Gigi Mcwilliams, [facility] [address] [facility],[place] [address] 05/29/2022 10:57:03 05/29/2022 15:22:05 Abscess 131549828 L02.214 stable on bactrim will continue Pain of le ft knee joint 3870820272 99885 M25.562 due to tearing of quadriceps Rupture of quadriceps tendon 7326174 S76.192A will call hip surgeon for knee referraldi d give him info on [facility] as well [id number] Gigi Mcwilliams, [facility] [address] [facility],[place] [address] 08/18/2022 10:31:02 08/18/2022 11:24:51 Type 2 diabetes mellitus 95987185 E11.65 A1c is better, also has endo f/u for medication adjustment Essential hypertension 83491950 I10 stablelow numbers at home which is good Active or passive immunization 717300191 Z23 patient advised he is due for tdap, flu shot & pneu 23 Depression screening 171 899716 Z13.31 stable Rupture of quadriceps tendon 5509016 S76.192A will be seeing them in cussing options for what they can do to fix it Hyperlipidemia 30695576 E78.2 will fu with recheck cholestero llast LDL was excellentw ill see if changing the statin is necessary Bilateral tinnitus 69032 83657 102 H93.13 improvedsu ggested ENT f/u for evaluation of his inner ear and auditory nerve 01837 Gigi Mcwilliams [facility] [address] [facility] [address],[place] [address] 11/17/2022 10:29:48 11/17/2022 14:49:05 Type 2 diabetes mellitus 07649892 E11.65 A1c is better, also has endo f/u for medication adjustment Essential hypertension 14081519 I10 stablelow numbers at home which is good Bilateral tinnitus 30193 69746 102 H93.13 improvedsu ggested ENT f/u for evaluation of his inner ear and auditory nerve if wantedwill try flonase and lipoflavon oid Body mass index 40+ - severely obese 721086871 Z68.41 discussed continuing working on diet and exerciseoz empic is helping Pain of le ft knee joint 0652773645 31616 M25.562 due to tearing of quadriceps Tendinitis of left quadriceps tendon 8308680391 2860769 M76.892 will send in referraldi dn't have any luck with his surgeon in [place] getting back to him [id number] Gigi Mcwilliams, [facility] [address] [facility],[place] [address] 02/10/2023 10:25:54 02/10/2023 11:11:30 Benign prostatic hyperplasia 279611993 N40.0 discussed switching to doxazosin from tamsulosin , will hold that for now stilldiscu ssed finasterid e as an alt since it works on conversion of his testostero ne to reduce prostate over time Mark hematuria 74261533 5 R31.0 agreed to recheck levels and a CBC and iron to determine if he has more significan t bleeding Pain of ri ght shoulder joint 9341534837 0650116 M25.511 ? infraspina tus tear, tendinitis 88920 Gigi Mcwilliams [facility] [address] [facility],[place] [address] 05/12/2023 11:09:03 05/12/2023 12:14:20 Essential hypertension 09282092 I10 stablelow numbers at home which is good Hypercholesterolemia 136 75472 E78.2 will recheck BW Type 2 desmond betes mellitus 19595511 E11.65 A1c is better, also has endo f/u for medication adjustment Benign pro static hyperplasia 578253856 N40.0 discussed switching to doxazosin from tamsulosin , will hold that for now stilldiscu ssed finasterid e as an alt since it works on conversion of his testostero ne to reduce prostate over time Hemospermia 80663876 R36 .1 indication s for possible STI after thorough discussion with patient Low back pain 887462051 M54.59 will set up with msk relaxer and anti-infla mmatory Cervical spondylosis 387 132854 M47.812 discussed [id number] Gigi Mcwilliams [facility] [address] [facility] [address] 08/13/2023 11:14:19 08/16/2023 08:35:26 Type 2 diabetes mellitus 07687803 E11.65 improving, his scores are much betterfoll ows with endo 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,[place] [address] 07/19/2024 11:46:51 07/19/2024 12:26:24 Essential hypertension 45225975 I10 stable Type 2 desmond betes mellitus 44226944 E11.65 doing much better Atrial fibrillation 4943 6004 I48.0 stable today currentlyr ecommended possibly getting a watch to monitor his rhythmhas fu with cardiology Low back pain 931797073 M54.59 recommende d fu imaging, r/o disc bulge vs msk spasm [id number] Gigi Mcwilliams [facility] [address] [facility] [address] 01/08/2025 12:00:51 01/08/2025 14:56:36 Renewal of prescription 513261609 Z76.0 stable Depression screening 171 912063 Z13.31 stable Atrial fibrillation 4943 6004 I48.0 stable today currentlyr ecommended possibly getting a watch to monitor his rhythmhas f/u with cardiology Ankylosing spondylitis 6064471 M45.2 0298478 stable currently Lumbago with sciatica 20 8788261 M54.41 stable currently [id number] Gigi Mcwilliams [facility] [address] [facility], [place] [address] 05/08/2025 10:53:41 05/08/2025 12:13:10 Degeneration of lumbosacral intervertebral disc 55651093 M51.372 7509580348 will restart short course of oxycodoneh as PT set upwill try for a CT lumbar instead since MRI keeps getting denied [id number] Gigi Mcwilliams [facility] [address] [facility] [address] 05/15/2025 11:23:20 05/15/2025 12:56:47 Depression screening 611344749 Z13.31 stable Atrial fibrillation 4943 6004 I48.0 stable today currently Essential hypertension 84654579 I10 stable [id number] Gigi Mcwilliams [facility] [address] [facility],[place] [address] 05/28/2025 10:53:09 05/29/2025 13:23:09 Abscess 432236918 L02.91 28205 cont on abx Permanent atrial fibrillation 251216133 I48.21 [id number] needs new cardiologi tonny got his license suspended/ revoked [id number] Gigi Mcwilliams [facility] [address] [facility],[place] [address] 06/01/2025 11:20:56 06/04/2025 08:59:15 Cellulitis caused by Staphylococcus aureus 083974272 L03.90 B95.62 extend coursewill f/u with Health Concerns Section Related Observation LastModified by Organization Detai ls LastModified Time None Recorded Concern Status LastModified by Organization Details LastModified Time None Recorded Advance Directives Directive None Recorded Payers Insurance Date Sequence Insurance Name Policy Number Policy Del Valle Covered Member ID Del Valle Member ID Guarantor Name 05/30/2025 1 [facility] [id number] Coleman Puckett [id number] Alexa Bowie Italo 11/05/2020 1 [facility] [id number] Coleman Puckett [id number] Alexa Puckett 08/08/2019 SLIDING FEE SCHEDULE - DISCOUNT Alexa Jamir Italo Notes Date Note Type Note Provider Name and Address Organization Details Recorded Time 5 text/html f/u 3 mos T2DM: patient is doing really well on the mounjaro currentlyisn't using as much insulin, currently on the 7.5 mg qweek [place] with Dr. Hendrickson neck pain: still sees chiropractor, probably has ankylosing spondylitisnot bothering him so much right now, will continue to work with chiropractor insomnia: with cpap, mine racing, has used gummies which have helped a. fib: stable, switched out from the eliquis to the xarelto to see if he gets less of the joint pain and dizziness he was having on the eliquis back pain: resolved, will monitor, MRI was denied, have just been working on conservative plan for management of flare ups has been more active with the weather changes, has motorized bike he uses, goes biking SABINE MARTINEZ [address] [place], [address], [facility] Internal Medicine 01/08/2025 12:38:00 5 text/html ROS as noted in the HPI c/o low back pain The patient presents to the office today due to ongoing lumbar spine painThe patient has had this pain for a long time but it has recently worsened, he does have a hx of disc bulging,The patient reports that this pain was triggered by bending over, twisting, pulled his back out lifting something had tried to get an MRI a few mos ago but it was denied by his insurance, needed PT The pain is located in the in the lower lumbar on the L side more so, radiates into the L leg and causes numbness and tingling in the ERThe patient has radiation, weakness and/or numbness in tingling L side feels sharp when movingthe patient was at a 9-10/10 for pain at worse and 3/10 at baseline not movingkeeps feeling a constant pinching sensation in his back The pain is relieved by restThe pain is worsened by activity Most recent imaging was an XR showing degenerative d/o Patient's pertinent comorbidities include hx of previous neck and back pain and herniations SABINE MARTINEZ [address] [place], [address], [facility] Internal Medicine 05/08/2025 12:10:59 5 text/html ROS as noted in the HPI 3 mos f/u the patient reports that he is doing well, the back pain is stable today, waiting on imaging and his PT referral PT scheduled him for Wednesday the patient and I reviewed his lab workthe patient BW looked good, does need to get his HDL up higher but his total cholesterol is 150 and his LDL 85 send lab work to Dr. Cortez'geraldy want to check his potassium level SABINE MARTINEZ [address] [place], [address], [facility] 05/15/2025 12:18:57 5 text/html ROS as noted in the HPI c/o abscess the patient still has the abscess on the groin, L sidethe patient reports that it hasn't changedhas been on the abx as directedrecommended cold compress instead of warm compressesalso recommended loss cotton clothing and leaving to air when at home will f/u either Wednesday/Wednesday to recheck to see if it can be drained needs new cardio, referred out to [facility] per recommendation from fam friend send COLEEN Riddle in [place] the CT back ?about Holter, supposed to get it placed with his current cardio office SABINE MARTINEZ [address] [facility], [place], [address], [facility] 05/28/2025 11:50:34 5 text/html ROS as noted in the HPI 4 day f/u the patient's abscess is clearing upstill has inflammation but the size is reducingno active drainage but it has improved significantlywill extend the bactrim course for the patient over the weekend the patient reports that he is doing well overallno fever, no chills, no sob the pt will continue to keep clean and drykeeps the wound covered when he is out and about due to the friction SABINE MARTINEZ [address] [place] [address], [place], [address], [facility] 06/01/2025 12:02:08
== END ==
LOC: HO.CARD 11:03
PROVIDERS: PCP Internal Medicine; Visit Provider Physician Assistant
DX: I48.21 Permanent atrial fibrillation (principal)
CPT/HCPCS: 93270

== ENCOUNTER → 2025-06-15 11:08 | Outpatient (BNV) | payer OTHER, SELFPAY | PROVIDERS: PCP Internal Medicine; Visit Provider Internal Medicine | DX: I49.3 Ventricular premature depolarization (principal); I49.49 Other premature depolarization; R00.1 Bradycardia, unspecified | CPT/HCPCS: 93272 ==